=== PATIENT | female | born 1965 | race Caucasian/White ===

== ENCOUNTER → 2022-04-06 12:38 | Outpatient (BNVA) | payer BC, SELFPAY | PROVIDERS: PCP Family Medicine; Visit Provider Student in an Organized Health Care Education/Training Program | DX: Z13.89 Encounter for screening for other disorder (principal) ==

== ENCOUNTER → 2022-08-03 13:45 | Outpatient (BNVA) | payer BC, SELFPAY | PROVIDERS: PCP Family Medicine; Visit Provider Student in an Organized Health Care Education/Training Program ==

== ENCOUNTER 2023-02-22 16:02 | Outpatient (AMB) | payer BC, SELFPAY ==
--- NOTE | 2023-02-22 16:03 | MHC.OFFVIS ---
Intake Vital Signs 02/22/23 16:04 Height 4 ft 10 in Weight 139 lb 15.896 oz BMI 29.3 BP 108/70 Blood Pressure Location Rt brachial Position Sitting Pulse 75 Pulse Source Pulse Oximeter Temp 97.3 F Temp Source Tympanic Pulse Oximetry (%) 98 Oxygen Delivery Method Room Air Intake Visit Reasons: RA Allergies diphenhydramine [From Benadryl] Allergy (Intermediate, Verified 02/22/23 16:05) Swelling adhesive tape Allergy (Mild, Verified 02/22/23 16:05) Rash Medication List - Last Reconciled 02/22/23 by Jose Luis Brown MD 5-hydroxytryptophan (5-HTP) (5-HTP) 100 mg PO DAILY apple cider vinegar mg PO calcium carbonate-vitamin D3 600 mg-10 mcg (400 unit) (Calcium 600 + D(3)) 1 tab PO BID digestive enzymes 1 cap PO DAILY fluticasone propionate 110 mcg/actuation (Flovent HFA) 2 puffs inhalation BID PRN folic acid 3 mg (3 x 1 mg) PO DAILY L.parac,rhamn-B.animalis-vit C 11 billion cell -15 mg (Daily Probiotic (4 Strains)) caps PO magnesium 250 mg PO DAILY methotrexate sodium 7.5 mg (3 x 2.5 mg) PO QWEEK multivitamin 1 tab PO DAILY turmeric root extract 500 mg PO BID HPI HPI Comments History of Present Illness Details 57-year-old female with RA returns for follow-up. Doing well overall with no joint pain or swelling. She has no complaints today. Compliant with methotrexate 3 tabs once weekly and folic acid. Initial history : This is a 56-year-old female with a past medical history of rheumatoid arthritis presents for evaluation of RA. 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 Patient stated she started having bilateral feet swelling about 3 years ago, then it progressed to involve her hands wrists and fingers. She was evaluated by Dr. Yanes and started on methotrexate 7 tabs weekly with significant improvement. After doing well for some time patient took herself off methotrexate however she would have recurrent pain swelling and stiffness so she would take Motrin daily. She was re-evaluated by Dr. Vasquez who advised patient to restart her methotrexate. Patient was found to have some transaminitis and the methotrexate dose was tapered down. Currently patient is taking methotrexate 3 tabs weekly with no recurrence of her inflammatory arthritis. Today patient is doing well overall with no complaints [facility] Medical History Rheumatoid arthritis Intrinsic asthma Allergic rhinitis Mixed hyperlipidemia Uterine leiomyoma Surgical History No history of previous surgery Family History Mother Hypertension Father Medical history unknown Social History Household Members: Spouse Household Members Other:: Mother Alcohol intake: current Alcohol intake frequency: does not drink Patient Tobacco Use Status: Never used Tobacco Current occupational status: employed Current occupation: [employer] [facility] [employer] [place] no additional complaints Physical Exam Vital Signs: Last Vital Signs Temp 97.3 F 02/22/23 16:04 Pulse 75 02/22/23 16:04 BP 108/70 02/22/23 16:04 Pulse Ox 98 02/22/23 16:04 Oxygen Delivery Method Room Air 02/22/23 16:04 BMI result Body Mass Index 29.3 Const General: cooperative, healthy appearing, comfortable and no acute distress Nutritional Appearance: overweight Orientation/consciousness: patient oriented x3 Limitations: no limitations HEENT Head: Yes normocephalic and Yes atraumatic Mouth: moist mucous membranes Resp Effort & Inspection: normal respiratory effort and able to speak in complete sentences Auscultation: clear to auscultation bilaterally Cardio Rate: regular rate Rhythm: regular rhythm Heart sounds: S1 normal heart sound present and S2 normal heart sound present Neuro General: patient oriented x3 Extrem Other: no active synovitis some osteoarthritic changes of both hands Normal nailfold capillaroscopy Assessment & Plan Assessment & Plan (1) Rheumatoid arthritis: Comment: +RF+CCP dx 2016 MTX effective Code(s): M06.9 - Rheumatoid arthritis, unspecified Qualifiers: Rheumatoid arthritis location: multiple sites Rheumatoid factor presence: unspecified presence Qualified Code(s): M06.9 - Rheumatoid arthritis, unspecified Plan: This is a 56-year-old female with rheumatoid arthritis (unclear serology) returns for follow-up. Her RA was diagnosed around 2016 with bilateral foot and hands swelling. Symptoms were controlled with methotrexate. Patient self discontinued methotrexate and took Motrin daily for some time. She was restarted on methotrexate by Dr. Vasquez and MTX dose was lowered as patient had transaminitis without RA exacerbation. Patient is currently on methotrexate 7.5 mg once weekly. No synovitis on exam Continue methotrexate 7.5 mg once weekly & folic acid 3 mg daily Labs before next visit in 6 months (2) Osteopenia: Code(s): M85.80 - Other specified disorders of bone density and structure, unspecified site Qualifiers: Osteopenia location: unspecified Qualified Code(s): M85.80 - Other specified disorders of bone density and structure, unspecified site Plan: DEXA [id number] showed osteopenia with a low FRAX score. Continue calcium and vitamin-D supplementation. Plan I spent 26 minutes reviewing patient's chart, evaluating patient, ordering diagnostic workup, counseling patient and documenting in the chart Orders: Orders Complete Blood Count Auto Diff 6 Months M06.9 - Rheumatoid arthritis, unspecified Comprehensive Met. Panel 6 Months M06.9 - Rheumatoid arthritis, unspecified C Reactive Protein 6 Months M06.9 - Rheumatoid arthritis, unspecified Erythrocyte Sedimentation Rate 6 Months M06.9 - Rheumatoid arthritis, unspecified Coding Level of Care Code Est Pt Level 4 (46351) Diagnoses Rheumatoid arthritis involving multiple sites, unspecified whether rheumatoid factor present M06.9 Rheumatoid arthritis location: multiple sites Rheumatoid factor presence: unspecified presence Osteopenia, unspecified location M85.80 Osteopenia location: unspecified
[2023-02-22 16:04] VITALS: BP 108/70; PULSE 75; TEMP 36.3; O2SAT 98; BMI 29.3
== END 2023-02-22 16:30 | disposition home or self-care (01) ==
PROVIDERS: PCP Family Medicine; Visit Provider Student in an Organized Health Care Education/Training Program
DX: M06.9 Rheumatoid arthritis, unspecified (principal); M85.80 Other specified disorders of bone density and structure, unspecified site
CPT/HCPCS: 99214

== ENCOUNTER → 2023-02-22 16:02 | Outpatient (BNVA) | payer BC, SELFPAY | PROVIDERS: PCP Family Medicine; Visit Provider Student in an Organized Health Care Education/Training Program ==

== ENCOUNTER 2023-08-26 15:36 | Outpatient (AMB) | payer BC, SELFPAY ==
--- NOTE | 2023-08-26 15:38 | A.OFFVIS_ITS ---
Vital Signs 08/26/23 15:39 Height 4 ft 10 in Weight 136 lb 10.986 oz BMI 28.6 BP 114/62 Blood Pressure Location Rt brachial Position Sitting Pulse 66 Pulse Source Pulse Oximeter Pulse Oximetry (%) 96 Oxygen Delivery Method Room Air Intake Visit Reasons: RA/CM Intake Note: Pt seen today for follow up and test results. 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 Filler Shredder Required: No Accompanied by: Self / Same As Patient Allergies diphenhydramine [From Benadryl] Allergy (Intermediate, Verified 08/26/23 15:49) Swelling adhesive tape Allergy (Mild, Verified 08/26/23 15:49) Rash Medication List - Last Reconciled 08/26/23 by Jose Luis Brown MD 5-hydroxytryptophan (5-HTP) (5-HTP) 100 mg PO DAILY apple cider vinegar mg PO calcium carbonate-vitamin D3 600 mg-10 mcg (400 unit) (Calcium 600 + D(3)) 1 tab PO BID digestive enzymes 1 cap PO DAILY fluticasone propionate 110 mcg/actuation (Flovent HFA) 2 puffs inhalation BID PRN folic acid 3 mg (3 x 1 mg) PO DAILY L.parac,rhamn-B.animalis-vit C 11 billion cell -15 mg (Daily Probiotic (4 Strains)) caps PO magnesium 250 mg PO DAILY methotrexate sodium 7.5 mg (3 x 2.5 mg) PO QWEEK multivitamin 1 tab PO DAILY turmeric root extract 500 mg PO BID HPI Comments Details: 58-year-old female with RA returns for follow-up. Doing well overall with no joint pain or swelling. She has no complaints today. Compliant with methotrexate 3 tabs once weekly and folic acid 3 mg daily. Initial history : This is a 56-year-old female with a past medical history of rheumatoid arthritis presents for evaluation of RA. 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 Patient stated she started having bilateral feet swelling about 3 years ago, then it progressed to involve her hands wrists and fingers. She was evaluated by Dr. Yanes and started on methotrexate 7 tabs weekly with significant improvement. After doing well for some time patient took herself off methotrexate however she would have recurrent pain swelling and stiffness so she would take Motrin daily. She was re-evaluated by Dr. Vasquez who advised patient to restart her methotrexate. Patient was found to have some transaminitis and the methotrexate dose was tapered down. Currently patient is taking methotrexate 3 tabs weekly with no recurrence of her inflammatory arthritis. Today patient is doing well overall with no complaints PFSH Medical History Rheumatoid arthritis Intrinsic asthma Allergic rhinitis Mixed hyperlipidemia Uterine leiomyoma Surgical History No history of previous surgery Family History Mother Hypertension Father Medical history unknown Social History Household Members: Spouse Household Members Other:: Mother Alcohol intake: current Alcohol intake frequency: does not drink Patient Tobacco Use Status: Never used Tobacco Current occupational status: employed Current occupation: [employer] Female Reproductive History Menstrual Total pregnancies: 2 Number of Living Children: 1 Ab spontaneous: 1 Review of Systems [employer] Reports no additional complaints, Denies arthralgias and Denies stiffness Physical Exam Vital Signs: Last Vital Signs Pulse 66 08/26/23 15:39 BP 114/62 08/26/23 15:39 Pulse Ox 96 08/26/23 15:39 Oxygen Delivery Method Room Air 08/26/23 15:39 BMI result Body Mass Index 28.6 Const General: cooperative, healthy appearing, comfortable and no acute distress Nutritional Appearance: overweight Orientation/consciousness: patient oriented x3 Limitations: no limitations HEENT Head: Yes normocephalic and Yes atraumatic Mouth: moist mucous membranes Resp Effort & Inspection: normal respiratory effort and able to speak in complete sentences Auscultation: clear to auscultation bilaterally Cardio Rate: regular rate Rhythm: regular rhythm Heart sounds: S1 normal heart sound present and S2 normal heart sound present Neuro General: patient oriented x3 Extrem Other: no active synovitis some osteoarthritic changes of both hands Normal nailfold capillaroscopy Assessment & Plan Assessment & Plan (1) Rheumatoid arthritis: Comment: +RF+CCP dx 2016 MTX effective Code(s): M06.9 - Rheumatoid arthritis, unspecified Category: Medical Qualifiers: Rheumatoid arthritis location: multiple sites Rheumatoid factor presence: unspecified presence Qualified Code(s): M06.9 - Rheumatoid arthritis, unspecified Plan: This is a 56-year-old female with rheumatoid arthritis (unclear serology) returns for follow-up. Her RA was diagnosed around 2016 with bilateral foot and hands swelling. Symptoms were controlled with methotrexate. Patient self discontinued methotrexate and took Motrin daily for some time. She was restarted on methotrexate by Dr. Vasquez and MTX dose was lowered as patient had transaminitis without RA exacerbation. Patient is currently on methotrexate 7.5 mg once weekly. No synovitis on exam Continue methotrexate 7.5 mg once weekly & folic acid 3 mg daily Labs before next visit in 6 months (2) Osteopenia: Code(s): M85.80 - Other specified disorders of bone density and structure, unspecified site Category: Medical Qualifiers: Osteopenia location: unspecified Qualified Code(s): M85.80 - Other specified disorders of bone density and structure, unspecified site Plan: DEXA [id number] showed osteopenia with a low FRAX score. Continue calcium and vitamin-D supplementation. 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 Panel 6 Months M06.9 - Rheumatoid arthritis, unspecified C Reactive Protein 6 Months M06.9 - Rheumatoid arthritis, unspecified Erythrocyte Sedimentation Rate 6 Months M06.9 - Rheumatoid arthritis, unspecified Vitamin D 25-OH (D2 and D3) 6 Months E55.9 - Vitamin D deficiency, unspecified Medications: Refilled calcium carbonate-vitamin D3 600 mg-10 mcg (400 unit) (Calcium 600 + D(3)) 1 tab PO BID 180 tabs 1RF methotrexate sodium 7.5 mg (3 x 2.5 mg) PO QWEEK 36 tabs 0RF M06.9 - Rheumatoid arthritis, unspecified Coding Level of Care Code Est Pt Level 4 (61837) Diagnoses Rheumatoid arthritis involving multiple sites, unspecified whether rheumatoid factor present M06.9 Rheumatoid arthritis location: multiple sites Rheumatoid factor presence: unspecified presence Osteopenia, unspecified location M85.80 Osteopenia location: unspecified [facility] methotrexate user Z79.631
[2023-08-26 15:39] VITALS: BP 114/62; PULSE 66; O2SAT 96; BMI 28.6
== END 2023-08-26 16:09 | disposition home or self-care (01) ==
PROVIDERS: PCP Family Medicine; Visit Provider Student in an Organized Health Care Education/Training Program
DX: M06.9 Rheumatoid arthritis, unspecified (principal); M85.80 Other specified disorders of bone density and structure, unspecified site; Z79.631 Long term (current) use of antimetabolite agent
CPT/HCPCS: 99214

== ENCOUNTER → 2023-08-26 15:36 | Outpatient (BNVA) | payer BC, SELFPAY | PROVIDERS: PCP Family Medicine; Visit Provider Student in an Organized Health Care Education/Training Program ==

== ENCOUNTER 2024-02-24 15:34 | Outpatient (AMB) | payer BC, SELFPAY ==
--- OUTSIDE RECORDS SUMMARY | 2024-02-24 15:37 | XMS_ITS | Continuity of Care Document ---
Author Organization [facility], , [facility], OFFICE Address [address] [facility] [place] [address] Care Team Providers Care Brazing Machine Tender Name Role Phone CRAON LEON Living Advisor LYUDMILA YANES Wood Lathe Operator JOSHUA NARAYAN Associate Product Manager LOUISE TORO Sports Medicine RIA KEITH Primary Care Provider Assessment Encounter Date Assessment Date Assessment LastModified by Organization Details LastModified Time 01/03/2024 01/03/2024 1. Hyperlipidemia. Her cholesterol levels are elevated, with an increasing trend in LDL over the years, currently in the 190 range. HDL levels are satisfactory. She is advised to continue her exercise regimen and monitor her diet, particularly reducing saturated fats. Tests for apoprotein B and homocysteine will be conducted. If these tests are elevated, statin therapy may be considered. If the results are normal, she can maintain her current lifestyle. If the results are mixed, further discussion will be needed to decide on the best course of action. 2. Anemia. Mild anemia is present, likely due to methotrexate use, but it is not a cause for concern. Her blood count tends to be on the lower side, possibly due to a combination of illness and methotrexate use. A repeat blood count will be performed in 2 weeks to ensure it returns to her usual levels. 3. Health Maintenance. Blood cultures were performed due to a previous fever, but no bacterial growth was detected. Her x-ray results are normal. She is scheduled for fasting blood work in 2 weeks. Follow-up Return in 2 weeks for blood work. [place] Not available 01/03/2024 15:47:13 Plan of Treatment Reminders Order Date Submit Date Provider Last Modified By Organization Details Last Modified Time Details Appointments Wellness Visit 30 2024 10:45A M Ria Keith MD Not available Not available Not available Lab CBC [address] [facility], [address] [place] [address], [id number], 01/17/2024 10:38:13 homocyste ine, QN, serum or plasma [address] [facility], [address] [place] [address], [id number], 01/23/2024 14:08:15 CRP, high sensitivi ty, serum or plasma [address] [facility], [address] [place] [address], [id number], 01/23/2024 14:08:16 apolipopr otein B, QN, serum or plasma [address] [facility], [address] [place] [address], [id number], 01/23/2024 14:08:17 Referral None recorded. Procedures None recorded. Surgeries None recorded. Imaging None recorded. Medication Orders None recorded. Patient TargetsNo targets recorded. Patient InstructionsNo instructions recorded. Reason for Referral None Reported. Results Created Date Observation Date Name Description Value Unit Range Abnormal Flag Note LastModifiedBy Organization Detail LastModifiedTime 06/30/19 09 06/26/2008 mammo gram, scree carl No observ ation record ed. [facility] [address] [place], [address], 09/26/2012 03:20:09 10/13/19 10 lobo metry testi ng* No observ ation record ed. [email or web address] Not Available 12/26 15:45:22 10/20/19 10 10/17/2009 routi ne mammo graph y exam, scree carl No observ ation record ed. [address], [address], 09/26/2012 04:17:12 03/28/19 11 03/27/2010 x-ray , chest No observ ation record ed. [facility] (Imaging) [address] [place], [address], 09/26/2012 04:39:31 11/28/19 11 11/24/2010 MAMMO , scree carl, digit al, bilat eral No observ ation record ed. [address], [address], 09/26/2012 05:23:44 12/03/19 12 11/30/2011 MAMMO , scree carl, digit al, bilat eral No observ ation record ed. [address], [address], 09/27/2012 03:37:57 12/31/19 13 12/30/2012 mammo gram, scree carl OBSERV ATION: Bilate ral digita l screen ing mammog carlos: Bilate ral full field digita l screen ing mammog carlos was review ed with CAD and compar ed with prior studie s. Breast tissue patter n is a mixtur e of fatty and fibrog landul ar elemen ts. No domina nt mass lesion or suspic ious microc alcifi cation s are seen in either breast . Impres lindsay: No mammog raphic eviden ce of malign chanelle. Annual screen ing mammog tati is recomm ended. BI-RAD S 1: Negati ve Electr onical ly signed Jesse arauz Physic azra: Ger Sethi MD [address] (Imaging) [address] [place], [address], 12/31/2012 16:31:42 01/01/20 13 12/31/2012 x-ray , knee OBSERV ATION: Left knee: Histor y: Knee pain 3 views. No fractu re or disloc ation is seen. No arthri tis or focal bone pathol ogy. No eviden ce of joint effusi on. Impres lindsay: Normal left knee series . Electr onical ly signed Readin g Physic azra: Ger Sethi MD [facility] (Imaging) [address] [place], [address], 01/01/2013 15:41:38 01/05/20 14 01/01/2014 mammo gram, scree carl OBSERV ATION: Bilate ral digita l screen ing mammog carlos: Bilate ral full field digita l screen ing mammog carlos was review ed with CAD and compar ed with prior studie s. Breast tissue patter n is a mixtur e of fatty and fibrog landul ar elemen ts. No domina nt mass lesion or suspic ious microc alcifi cation s are seen in either breast . Impres lindsay: No mammog raphic eviden ce of malign chanelle. Annual screen ing mammog tati is recomm ended. 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 No signif icant degene rative change s are posttr aumati c abnorm alitie s are presen t. IMPRES LINDSAY: No signif icant radiog raphic abnorm alitie s. CODE: code POS: VMG Electr onical ly signed Readin g Physic azra: Dav Fay [email or web address] [facility] (Imaging) [address] [place], [address], 06/17/2015 18:04:02 05/21/19 16 05/20/2015 x-ray , hand OBSERV ATION: Bilate ral hands 3 views each both wrists are also visual ized HISTOR Y: Newly diagno sed rheuma toid arthri tis COMPAR ARSH: None Findin gs: Minera lizati on, the joint spaces , and alignm ents are normal . No signif icant degene rative change s are posttr aumati c abnorm alitie s are presen t. IMPRES LINDSAY: No signif icant radiog raphic abnorm alitie s. CODE: code POS: VMG Electr onical ly signed Readin g Physic azra: Dav Fay elisabeth [facility] (Imaging) [address] [place], [address], 06/17/2015 18:04:02 06/09/19 16 06/09/2015 x-ray , chest OBSERV ATION: Chest: Histor y: Rheuma toid arthri tis therap y baseli ne Fronta l and latera l views are compar ed with the study of 2010 and reveal ed the lungs to be well expand ed and overal l clear withou t focal infilt rates or pleura l effusi ons presen t. The heart is border line enlarg ed withou t overt vascul ar conges tion or inters titial edema. The visual ized bony thorax is intact . IMPRES LINDSAY: Border line cardio megaly withou t other signif icant interv al change from 2010. CODE: code POS - VMG Electr onical ly signed Readin g Physic azra: Bhavin Allen MD [address] (Imaging) [address] [place], [address], 06/17/2015 18:04:03 07/01/19 16 06/30/2015 x-ray , knee OBSERV ATION: Right knee 3 views weight bearin g HISTOR Y: Pain, rheuma toid arthri tis COMPAR ARSH: None Findin gs: Minera lizati on, the joint spaces , and alignm ents are normal . No signif icant degene rative change s or posttr aumati c abnorm alitie s are presen t. IMPRES LINDSAY: No signif icant radiog raphic abnorm alitie s. CODE: code POS: VMG Electr onical ly signed Readin g Physic azra: [facility] [address] [place], [address], 07/02/2015 11:42:18 03/03/20 16 03/02/2016 MAMMO , scree carl, digit al, bilat eral OBSERV ATION: Screen ing Mammog carlos, Bilate ral with utiliz ation of comput er aided detect ion. Histor y: Routin e Compar arsh: dating back to 2012. Findin gs: No suspic ious masses or suspic ious cluste red microc alcifi cation s are presen t. No dae ectura l distor tion or signif icant asymme try is presen t. IMPRES LINDSAY: Normal negati ve. Annual screen ing is recomm ended. Patien t notifi ed by letter . BI-RAD S CATEGO RY 1 - NEGATI VE Densit y: 1 Fatty replac ed POS: VMG Electr onical ly signed Jesse arauz Physic azra: Dav Fay [facility] (Imaging) [address] [place], [address], 03/03/2016 14:10:02 03/05/19 18 03/05/2017 MAMMO , scree carl, digit al, bilat eral OBSERV ATION: Screen ing Mammog carlos, Bilate ral with utiliz ation of comput er aided detect ion. Histor y: Routin e Compar arsh: dating back to 2013 and the most recent is dated the 2015 Findin gs: No suspic ious masses or suspic ious cluste red microc alcifi cation s are presen t. No dae ectura l distor tion or signif icant asymme try is presen t. IMPRES LINDSAY: Normal negati ve. Annual screen ing is recomm ended. Patien t notifi ed by letter . BI-RAD S CATEGO RY 1 - NEGATI VE Densit y: A Fatty replac ed POS: VMG Electr onical ly signed Jesse arauz Physic azra: Dav Nya [facility] (Imaging) [address] [place], [address], 03/05/2017 13:47:27 10/18/19 18 10/17/2017 XR, knee, weigh tbear ing OBSERV ATION: EXAM: Radiog raphs of left knee, 3 views COMPAR ARSH: Octobe r 2012 Histor y: Left knee rule out osteoa rthrit is FINDIN GS: Includ ed bone struct ures are intact and in anatom ic alignm ent. Joint spaces are preser diamond. [place] ing soft tissue s are unrema rkable . IMPRES LINDSAY: No eviden ce of osteoa rthrit is. Electr onical ly signed Jesse arauz Physic azra: Robert bob [facility] (Imaging) [address] [place], [address], 10/18/2017 07:52:11 03/21/19 19 03/21/2018 MAMMO , scree carl, digit al, bilat eral OBSERV ATION: Bilate ral Digita l Screen ing Mammog carlos. 52-yea r-old female with no curren t breast sympto ms. Compar arsh made to previo us on 2017 as far back as 2006. Interp retati on made in conjun ction with comput er-aid ed detect ion. The breast s are almost entire ly fatty. There are no suspic ious masses , areas of dae ectura l distor tion, or suspic ious cluste rs of microc alcifi cation s. IMPRES LINDSAY: No mammog raphic eviden ce of malign chanelle. Recomm end routin e survei llance . Patien t notifi ed by letter . BI-RAD S CATEGO RY 1 - NEGATI VE Densit y - 1 POS - VMG Electr onical ly signed Jesse arauz Physic azra: Kenny garcia MD [address] (Imaging) [address] [place], [address], 03/21/2018 08:43:56 05/02/19 20 05/02/2019 XR, hand OBSERV ATION: CLINIC AL HISTOR Y: Pain. TECHNI QUE: Three views of the right and left hands obtain ed. FINDIN GS: Right hand There is no acute fractu re, sublux ation, or disloc ation. Bone minera lizati on is within normal limits . The soft tissue s are unrema rkable . Left hand There is no acute fractu re, sublux ation, or disloc ation. Bone minera lizati on is within normal limits . The soft tissue s are unrema rkable . IMPRES LINDSAY: No acute bone abnorm ality. Electr onical ly signed Jesse arauz Physic azra: Emmanuel Fuller ms [facility] (Imaging) [address] [place], [address], 05/04/2019 11:18:52 12/06/1912/03/2019 MAMMO , scree carl, tomos ynthe sis, bilat eral OBSERV ATION: CLINIC AL HISTOR Y: Screen ing. TECHNI QUE: 3D mammog tati (tomos ynthes is) and 2D mammog tati (C-vie w) images are genera rohan. Images review ed with a CAD system . COMPAR ARSH: Prior mammog monisha throug h 2013. FINDIN GS: The breast parenc hyma is almost entire ly fatty. There are no suspic ious masses . There are no suspic ious microc alcifi cation s. The breast dae ecture is normal . There has been no signif icant change compar ed to the prior study. IMPRES LINDSAY: No mammog raphic eviden ce of malign chanelle. Regula r mammog raphic screen ing recomm ended. The patien t was entere d into a remind er system with a target date for their next mammog carlos. Breast densit y: A. The breast s are almost entire ly fatty. BIRADS : 1, NEGATI VE Electr onical ly signed Jesse arauz Physic azra: Emmanuel Fuller [facility] (Imaging) [address] [place], [address], 12/07/2019 10:38:24 01/01/2012/24/2019 bone densi ty OBSERV ATION: Dual-E nergy X-ray Absorp tiomet ry (DXA) scan perfor med on . Impres lindsay: Based on BMD, diagno sis is consis tent with low bone mass. Treatm ent Recomm endati ons: ? Optimi ze vitami n D, calciu m, and weight -beari ng and muscle -stren gtheni ng exerci se. This patien t has low bone mass with fractu re risk below the thresh old for antire sorpti ve treatm ent. Follow -up DXA: Consid er repeat ing this study in two to three years or as clinic ally [place]abo madrigal. Indica tion(s ): postme nopaus al Clinic al Histor y: rheuma toid arthri tis, height loss Techni sean Qualit y: The techni sean qualit y of the study was good and no region s of intere st were remove d. Result s: Lumbar Spine The BMD measur ed in the L1-L4 region is 1.005 g/cm2. T-scor e = -1.5. Femora l Neck The BMD measur ed at the right femora l neck is 0.789 g/cm2. T-scor e = -1.8. Total Hip The BMD measur ed at the total mean proxim al femur is 0.891 g/cm2. T-scor e = -0.9. Interv al Change : No priors availa ble for compar arsh. Fractu re Risk: The estima rohan 10-yea r risk for a major osteop orotic fractu re is 5.0 % and for a hip fractu re 0.6 %.This fractu re risk estima te was calcul ated using FRAX versio n 4.0 and postme nopaus e and rheuma toid arthri tis as additi onal clinic al risk factor s for fractu re. This scan was perfor med using the [employer] 10 densit ometer at [facility] , [place] [address] [place]. Read by: Nae Culp on, MS, CONSTRUCTION TRADES TEACHER-BC , CCD Electr onical ly signed Jesse arauz Physic azra: Ira Mathis [facility] (Imaging) [address], [place], [address], 01/25/2020 09:02:36 06/29/19 21 06/28/2020 XR, kidne y + urete r + bladd er OBSERV ATION: CLINIC AL HISTOR Y: Urinar y retent ion. Left-s ided low back and pelvic pain. TECHNI QUE: Supine view of the abdome n obtain ed. COMPAR ARSH: None. FINDIN GS: The intest inal gas patter n is normal , with no signs of ileus or obstru ction. No calcif icatio ns projec t over the kidney s. There is a 1.8 cm calcif icatio n in the left hemipe lvis, likely a fibroi d. There are additi onal smalle r calcif icatio ns that may repres ent phlebo liths. . The viscer al contou rs are normal ly outlin ed. There is no eviden ce of free air or fluid in the perito clayton cavity or retrop eriton eum. The bony struct ures are intact . There is an unrema rkable amount of stool. IMPRES LINDSAY: No acute abdomi nal pathol ogy. Probab le left pelvic fibroi d. Electr onical ly signed Readsilvano arauz Physic azra: Emmanuel Fuller ms [email or web address] [facility] (Imaging) [address], [place], [place], [address], 06/28/2020 14:40:08 06/29/19 21 06/28/2020 US, kidne y OBSERV ATION: CLINIC AL HISTOR Y: Left leg pain TECHNI QUE: 2D sonogr aphy of the kidney s and bladde r. COMPAR ARSH: None. FINDIN GS: Right kidney 4.5 x 10.1 cm The right kidney is normal in echote xture. There are no solid masses , stones , or hydron ephros is. Left kidney 4.6 x 9.5 cm The left kidney is normal in echote xture. There are no solid masses , stones , or hydron ephros is. The bladde r is normal in appear ance. Ureter al jets are visual ized bilate rally. The prevoi d bladde r volume is 55.6 mL. The post void bladde r volume is 1.6 mL. IMPRES LINDSAY: 1. Unrema rkable examin ation of the kidney s and bladde r. 2. 1.6 mL postvo id residu al. Electr onical ly signed Readsilvano arauz Physic azra: mEmanuel Fuller ms [email or web address] [facility] (Imaging) [address] [place], [address], 06/28/2020 14:43:55 06/01/19 22 05/30/2021 MAMMO , scree carl, tomos ynthe sis, bilat eral CLINIC AL HISTOR Y: Screen ing. TECHNI QUE: 3D mammog tati (tomos ynthes is) and 2D mammog tati (C-vie w) images are genera rohan. Images review ed with a CAD system . COMPAR ARSH: Prior mammog monisha back throug h 2015. FINDIN GS: The breast parenc hyma is almost entire ly fatty. There are no suspic ious masses . There are no suspic ious microc alcifi cation s. The breast dae ecture is normal . There has been no signif icant change compar ed to the prior study. IMPRES LINDSAY: No mammog raphic eviden ce of malign chanelle. Annual mammog raphic screen ing recomm ended. This facili ty uses a remind er system with a target date for the next mammog carlos. Breast densit y: A. The breast s are almost entire ly fatty. BIRADS : 1, NEGATI VE Jesse arauz Physic azra: Emmanuel Fuller ms [address] (Imaging) [address] [place], [address], 05/31/2021 09:22:27 07/22/19 22 07/20/2021 XR, knee CLINIC AL HISTOR Y: Right knee mr teacher ior pain. TECHNI QUE: AP, obliqu e and latera l views of the right knee obtain ed. COMPAR ARSH: 016 FINDIN GS: There is no fractu re, sublux ation or disloc ation. The joint spaces are mainta ined. IMPRES LINDSAY: No acute bone abnorm ality. Jesse arauz Physic azra: Emmanuel Fuller ms [facility] (Imaging) [address] [place], [address], 12/03/2021 20:24:51 10/13/19 23 10/12/2022 MAMMO , scree carl, tomos ynthe sis, bilat eral MAMMO, SCREEN , DAYSI, BILAT: 023. BI-RAD S: 1 CLINIC AL: 57-yea r old Female for Bilate ral Screen ing Mammog carlos. No person al or first- degree family histor y of breast cancer . PRIOR EXAMS: Review ed previo us images from 2021, 2019, 2018 and 2017. MAMMOG TATI TECHNI QUE: 3D mammog tati (tomos ynthes is) and 2D mammog tati (C-vie w) images are genera rohan. Images review ed with a CAD system . DENSIT Y A. Almost entire ly fatty. MAMMOG TATI FINDIN GS Bilate ral: No suspic ious mass, asymme try, microc alcifi cation , or other abnorm ality seen. CONCLU LINDSAY * No eviden ce of malign chanelle. RECOMM ENDATI ONS Bilate ral * Annual screen ing mammog tati. ADMINI STRATI VE: A lay summar y was mailed to your patien t indica angelikag the result s and recomm endati ons for follow -up. OVERAL L ASSESS MENT CATEGO RY BI-RAD S-1: Negati ve. The [employer] recomm ends annual screen ing mammog tati beginn ing at age 40 for women with averag e risk of breast cancer . ELECTR ONICAL LY SIGNED : Emmanuel Fuller ms, M.D. on 2022 at 05:39: 03 PM Jesse arauz Physic azra: Emmanuel Fuller ms [email or web address] [facility] (Imaging) [address], [place], [address], 10/15/2022 08:56:27 12/19/19 24 12/19/2023 XR, chest CLINIC AL HISTOR Y: Cough, fever for 5 weeks. TECHNI QUE: Fronta l view and latera l view of the chest obtain ed. COMPAR ARSH: 06/09/19 16 FINDIN GS: The heart is normal in size and config uratio n.Ther e is no hilar or medias tinal enlarg ement. There is no focal lung consol idatio n or infilt rate. The bony thorax is intact . IMPRES LINDSAY: No acute diseas e. Jesse arauz Physic azra: Emmanuel Fuller ms [email or web address] [facility] (Imaging) [address], [place], [address], 12/20/2023 09:18:35 12/19/19 24 12/19/2023 XR, chest CLINIC AL HISTOR Y: Cough, fever for 5 weeks. TECHNI QUE: Fronta l view and latera l view of the chest obtain ed. COMPAR ARSH: 06/09/19 16 FINDIN GS: The heart is normal in size and config uratio n.Ther e is no hilar or medias tinal enlarg ement. There is no focal lung consol idatio n or infilt rate. The bony thorax is intact . IMPRES LINDSAY: No acute diseas eEthel arauz Physic azra: Emmanuel Fuller ms [email or web address] [facility] (Imaging) [address], [place], [address], 12/20/2023 09:18:35 Result Notes None recorded. Problems Name Problem SNOMED Code Status Onset Date Resolution Date Notes Provider Name and Address Organization Details Recorded Time Mixed hyperlipid emia 123487957 Completed 2008 Leandro Zheng DPM [address] [place], [address] , [facility] 6 15:19:03 Common cold 68907280 Completed 01/21/2013 Not Available [facility] 3 02:00:30 Pneumonia 110226408 Completed 01/21/2013 Not Available [facility] 3 02:02:26 Knee pain Completed 01/21/2013 Not Available [facility] 3 02:00:43 Exercise-i nduced asthma 76649006 Completed Not Available [facility] 3 03:15:46 Paronychia of finger 122337042 Completed 01/21/2013 Not Available [facility] 3 02:04:05 Intrinsic asthma 350346338 Completed Leandro Zheng DPM [address] [place], [address] , [facility] 6 15:19:03 Asthma 451155819 Completed NADYA Frederick [address] [place] [address], , [facility] 4 17:08:16 Allergic asthma without status asthmaticu s 92677497 Completed 2002 Leandro Zheng DPM [address] [place] [address], , [facility] 6 15:19:03 Adult health examinatio n Completed 09/28/2016 Ria Keith MD [address] [place] [address], , [facility] 7 19:52:37 Counseling Completed 09/28/2016 Ria Keith MD [address] [place] [address], , [facility] 7 19:52:43 Knee pain Active LUCERO Be [address] [place] [address], , [facility] 6 18:01:29 Uterine leiomyoma 28738081 Active Leandro Zheng DPM [address] [place] [address], , [facility] 6 15:19:03 Anterior knee pain 941724393 Completed 08/01/2017 Luanne Lozada NP [address] [place] [address], , [facility] 8 05:53:05 Metatarsal mike 68643905 Completed Leandro Zheng DPM [address] [place] [address], , [facility] 6 15:22:15 Pronation of foot 29230728 Completed Leandro Zheng DPM [address] [place] [address], , [facility] 6 15:22:15 Rheumatoid arthritis 48170542 Active Lyudmila Yanes MD [address] [place] [address], , [facility] 6 19:04:13 Rheumatoid arthritis 13231658 Completed Lyudmila Yanes MD [address] [place] [address], , [facility] 6 19:04:13 Knee pain Completed LUCERO Be [address] [place] [address], , [facility] 6 18:01:29 Anterior knee pain 753601357 Completed Lyudmila Yanes MD [address] [place] [address], , [facility] 6 19:04:13 Tenosynovi tis of fingers 456558675 Active Lyudmila Yanes MD [address] [place] [address], , [facility] 6 19:04:13 Tenosynovi tis of fingers 178374722 Completed Lyudmila Yaens MD [address] [place] [address], , [facility] 6 19:04:13 Long-term drug therapy Completed 201508/01/2017 Luanne Lozada NP [address] [place] [address], , [facility] 8 05:53:11 Mixed hyperlipid emia 725407812 Active 2008 Leandro Zheng DPM [address] [place] [address], , [facility] 6 15:19:03 Cough 42875396 Completed 200212/31/2012 Leandro Zheng DPM [address] [place] [address], , [facility] 6 15:19:04 Extrinsic asthma with asthma attack Completed 200012/31/2012 Leandro Zheng DPM [address] [place] [address], , [facility] 6 15:19:03 Shoulder pain 56855733 Completed 200312/31/2012 Leandro Zheng DPM [address] [place], [address] , [facility] 6 15:19:04 Fever 235183656 Completed 200712/31/2012 Leandro Zheng DPM [address] [place], [address] , [facility] 6 15:19:04 Myopia 33378735 Completed 200408/01/2017 Luanne Lozada NP [address] [place], [address] , [facility] 8 05:53:18 Intrinsic asthma 794599455 Active Leandro Zheng DPM [address], [place], , [facility] 6 15:19:03 Skin sensation disturbanc e 70452794 Completed 200112/31/2012 Leandro Zheng DPM [address], [place], , [facility] 6 15:19:04 Joint stiffness 92970863 Completed 200012/31/2012 Leandro Zheng DPM [address], [place], , [facility] 6 15:19:04 Neck pain 23634544 Completed 200012/31/2012 Leandro Zheng DPM [address], [place], , [facility] 6 15:19:04 Allergic asthma without status asthmaticu s 12760686 Completed 200208/01/2017 Luanne Lozada NP [address], [place], , [facility] [facility] 8 05:53:25 Urticaria [id number] Completed 200312/31/2012 Leandro Zheng DPM [address], [place], , [facility] 6 15:19:04 Atopic dermatitis 91169440 Completed 200102/04/2015 Leandro Zheng DPM [address] [place], [address] , [facility] 6 15:19:03 Common cold 26406084 Completed 200012/31/2012 Leandro Zheng DPM [address] [place], [address] , [facility] 6 15:19:03 Knee pain Completed 200301/21/2013 Leandro Zheng DPM [address] [place], [address] , [facility] 6 15:19:04 On examinatio n - a rash Completed 200012/31/2012 Leandro Zheng DPM [address] [place], [address] , [facility] 6 15:19:04 Sprain of shoulder and upper arm Completed 200012/31/2012 Leandro Zheng DPM [address] [place], [address] , [facility] 6 15:19:04 Allergic rhinitis caused by pollen 19322987 Active 2002 Leandro Zheng DPM [address] [place], [address] , [facility] 6 15:19:03 Exercise-i nduced asthma 37815008 Completed 12/31/2012 Leandro Zheng DPM [address] [place], [address] , [facility] 6 15:19:03 White blood cell disorder 71221994 Completed 200302/04/2015 Leandro Zheng DPM [address] [place], [address] , [facility] 6 15:19:03 Anemia 520077606 Completed 200202/04/2015 Leandro Zheng DPM [address] [place], [address] , [facility] 6 15:19:03 Acute conjunctiv itis 03181621 Completed 200212/31/2012 Leandro Zheng DPM [address] [place], [address] , [facility] 6 15:19:03 Abnormal weight gain 462857784 Completed 200812/31/2012 Leandro Zheng DPM [address] [place], [address] , [facility] 6 15:19:04 Acute upper respirator y infection of multiple sites Completed 200712/31/2012 Leandro Zheng DPM [address] [place], [address] , [facility] 6 15:19:03 Acne 74009806 Completed 200102/04/2015 Leandro Zheng DPM [address] [place], [address] , [facility] 6 15:19:03 Acute bronchitis 80623805 Completed 200312/31/2012 Leandro Zheng DPM [address] [place], [address] , [facility] 6 15:19:03 Primary fibromyalg ia syndrome 87504317 Completed 200102/04/2015 Leandro Zheng DPM [address] [place], [address] , [facility] 6 15:19:04 Asthma 888217954 Completed 200012/31/2012 Leandro Zheng DPM [address] [place], [address] , [facility] 6 15:19:03 Neck sprain 261274697 Completed 200012/31/2012 Leandro Zheng DPM [address] [place], [address] , [facility] 6 15:19:04 Malaise and fatigue 226981308 Completed 200212/31/2012 Leandro Zheng DPM [address] [place], [address] , [facility] 6 15:19:04 Problem Notes None recorded. Procedures Surgical History Date Name Laterality Status Provider Name and Address Organization Details Recorded Time 09/20/19 22 73584: Therapeutic Exercise completed Larissa Estrada, PT [address] [place], [address], [facility] 09/19/2021 17:28:32 09/20/19 Treatment and Advice completed Larissa Estrada, PT [address] [place], [address], [facility] 09/19/2021 17:28:32 08/30/19 22 91138: Therapeutic Exercise completed Larissa Estrada, PT [address] [place], [address], [facility] 08/29/2021 17:35:35 08/30/19 Treatment and Advice completed Larissa Estrada, PT [address] [place], [address], [facility] 08/29/2021 18:00:56 08/23/19 37634: Therapeutic Exercise completed Larissa Estrada, PT [address] [place], [address], [facility] 08/22/2021 18:03:21 08/23/19 22 Treatment and Advice completed Larissa Estrada, PT [address] [place], [address], [facility] 08/22/2021 18:05:32 08/16/19 22 02462: Therapeutic Exercise completed Larissa Estrada, PT [address] [place], [address], [facility] 08/15/2021 19:47:05 08/16/19 22 Treatment and Advice completed Larissa Estrada, PT [address] [place], [address], [facility] 08/15/2021 19:46:19 08/11/19 22 Physical Activity Counselling completed Larissa Estrada, PT [address] [place], [address], [facility] 08/10/2021 07:42:47 08/11/19 22 35933: PT Eval Low Complexity completed Larissa Estrada, PT [address] [place], [address], [facility] 08/10/2021 07:42:44 08/11/19 22 Treatment and Advice completed Larissa Estrada, PT [address] [place], [address], [facility] 08/10/2021 08:02:43 06/27/19 22 Asthma Control Test (12 + years old) completed Katelin Chao [facility] 06/26/2021 15:59:49 12/08/19 21 Asthma Control Test (12 + years old) completed Melissa Mona [facility] 12/07/2020 14:38:53 05/03/19 21 prevention-card iovascular risk reduction counseling completed Melissa Dunn [facility] 05/02/2020 15:19:26 05/03/19 21 prevention-lynda al alcohol misuse screening completed Melissa Dunn [facility] 05/02/2020 15:19:26 04/27/19 20 Trigger Finger Injection RB completed Lyudmila Yanes MD [address] [place], [address], [facility] 04/27/2019 15:25:34 09/27/19 19 Generic Procedure Template completed Lyudmila Yanes MD [address] [place], [address], [facility] 09/28/2018 11:36:46 07/11/19 19 Physical Activity Counselling completed Georgina Solares, OT [address] [place], [address], [facility] 07/10/2018 20:39:55 07/11/19 19 56918: OT Eval, Moderate Complexity completed Georgina Solares, OT [address] [place], [address], [facility] 07/10/2018 20:39:59 09/28/19 18 81027: Therapeutic Exercise completed Leandro Pike, PT [address] [place], [address], [facility] 09/27/2017 14:40:27 09/28/19 18 Treatment and Advice completed Leandro Pike, PT [address] [place], [address], [facility] 09/27/2017 14:56:47 08/31/19 18 29287: Therapeutic Exercise completed Leandro Pike, PT [address] [place], [address], [facility] 08/30/2017 10:37:08 08/31/19 18 93578: Ultrasound (1:1) completed Leandro Pike, PT [address] [place], [address], [facility] 08/30/2017 10:37:39 08/31/19 18 Treatment and Advice completed Leandro Pike, PT [address] [place], [address], [facility] 08/30/2017 10:34:51 08/24/19 18 31453: Therapeutic Exercise completed Leandro Pike, PT [address] [place], [address], [facility] 08/23/2017 11:28:22 08/24/19 18 Treatment and Advice completed Leandro Pike, PT [address] [place], [address], [facility] 08/23/2017 11:28:04 08/17/19 18 Physical Activity Counselling completed Leandro Pike, PT [address] [place], [address], [facility] 08/16/2017 16:36:13 08/17/19 18 24473: PT Eval Low Complexity completed Leandro Pike, PT [address] [place], [address], [facility] 08/16/2017 16:36:13 08/14/19 18 Nebulizer Tx completed Eliane Rodgers [facility] 08/13/2017 10:51:42 08/12/19 16 58048: Therapeutic Exercise completed Leandro Pike, PT [address] [place], [address], [facility] 08/12/2015 17:00:08 08/12/19 16 Treatment and Advice completed Leandro Pike, PT [address] [place], [address], [facility] 08/12/2015 17:00:08 07/29/19 16 90379: Therapeutic Exercise completed Leandro Pike, PT [address] [place], [address], [facility] 07/30/2015 07:14:21 07/29/19 16 Treatment and Advice completed Leandro Pike, PT [address] [place], [address], [facility] 07/29/2015 16:58:00 07/26/19 16 Trigger Finger Injection RB completed Lyudmila Yanes MD [address] [place], [address], [facility] 07/26/2015 19:03:32 07/15/19 16 35486: PT Evaluation completed Leandro Pike, PT [address] [place], [address], [facility] 07/15/2015 17:30:08 04/29/19 16 17653: Therapeutic Exercise completed Leandro Pike, PT [address] [place], [address], [facility] 05/01/2015 11:32:49 04/08/19 16 16289: Therapeutic Exercise completed Leandro Pike, PT [address] [place], [address], [facility] 04/08/2015 17:14:33 03/18/19 16 14599: Therapeutic Exercise completed Leandro Pike, PT [address] [place], [address], [facility] 03/18/2015 18:20:59 03/11/19 16 Yelitza - Colonoscopy completed Bhavin Torre MD [address] [place], [address], [facility] 03/11/2015 07:53:39 02/19/20 15 20533: PT Evaluation completed Leandro Pike, PT [address] [place], [address], [facility] 02/18/2015 16:14:24 01/01/20 13 Asthma Control Test (12 + years old) completed Genesis Lyons [facility] 12/31/2012 15:56:03 12/31/19 10 Treatment and Advice completed DamirFrancisco Pike, PT [address] [place], [address], [facility] 12/30/2009 13:38:40 12/24/19 10 Treatment and Advice completed Leandro Singh Shahzad, PT [address] [place], [address], [facility] 12/23/2009 13:36:51 11/29/19 10 Treatment and Advice completed Leandro Singh Shahzad, PT [address] [place], [address], [facility] 11/28/2009 12:30:58 Imaging Results None recorded. Procedure Notes None recorded. Medical Equipment None Reported. Allergies Allergen ID Allergen Name Allergen Category Reaction Reaction Severity Criticality Documentation Date Start Date Code Code System Note Provider Name and Address Organization Details Recorded Time 18790709 diphenhyd ramine medicatio n edema Not available Not available 05/05/2015 3498 RxNorm Zenia RICK Griffith null, [facility] 6 16:42:55 704183 adhesive environme nt,medica tion rash mild low 08/22/20212021 Larissa henao, PT [address] [facility], [place], [address], [facility] 2 17:37:01 6504 Benadryl medicatio n Not available Not available Not available 05/24/200864658 7 RxNorm swell ing & eyes water ing Not Available [facility] 1 06:05:20 Medications Name Sig Start Date Stop Date Status Note LastModified by Organization Details LastModified Time leucovori n calcium 5 mg tabs 06/30 completed Not Available Not Available Not Available amoxicill in 875 mg tabs 06/30 completed Not Available Not Available Not Available methotrex ate 2.5 mg tabs 06/30 completed Not Available Not Available Not Available flovent hfa 110 mcg/act aero 09/26 completed Not Available Not Available Not Available proair hfa 108 (90 base) mcg/act aers 09/26 completed Not Available Not Available Not Available prednison e 10 mg tablet Take 5 tabs PO X2d, then 4tabs PO X2d, then 3 tabs PO x 3d, then 2 tabs PO X2d & then 1 tab PO X2d 06/27 completed not taking 03/18/23 DS Not Available Not Available Not Available ibuprofen 800 mg tablet Take 1 tablet 3 times a day by oral route for 30 days. 02/12 completed Not Available Not Available Not Available benzonata te 200 mg capsule Take 1 capsule 3 times a day by oral route as needed for 14 days. active finsihed 01/03/24 DS Not Available Not Available Not Available Keflex 500 mg capsule Take 1 capsule 3 times a day by oral route for 7 days. 08/22 completed Not Available Not Available Not Available prednison e 20 mg tablet 2 tabs day x 5 01/02 completed Finished 12/03/23 Not Available Not Available Not Available Zithromax Z-Evaristo 250 mg tablet Take 2 tablets (500 mg) by oral route once daily for 1 day then 1 tablet (250 mg) by oral route once daily for 4 days 2010 active Not Available Not Available Not Avai lable Motrin IB 200 mg tablet Not taking 07/21 completed Not Available Not Available Not Available prochlorp erazine maleate 10 mg tablet active Not Available Not Available Not Available Guaiatuss in AC 10 mg-100 mg/5 mL oral liquid Take 10 mL every 4 hours by oral route. active Not Available Not Available No t Available amoxicill in 875 mg tablet Take 1 tablet every 12 hours by oral route for 7 days. 09/20 completed Not Available Not Available Not Available methotrex ate sodium 2.5 mg tablet Take 3 tablets every week by oral route for 60 days. active Not Available Not Available No t Available Lidoderm 5 % topical patch Apply 1 patch every week by transder mal route as needed. 2012 active Not Available Not Available Not Avai lable tamsulosi n 0.4 mg capsule TAKE 1 CAPSULE BY MOUTH EVERY DAY 11/03 completed Not Available Not Available Not Available leucovori n calcium 5 mg tablet 2 po weekly approx 12 hrs after methotre xate dose 06/27 completed Not Available Not Available Not Available folic acid 1 mg tablet TAKE 3 TABLETS BY MOUTH EVERY DAY active Not Available Not Available No t Available ibuprofen 600 mg tablet take 1.5 tabs per day 06/27 completed Not Available Not Available Not Available albuterol sulfate HFA 90 mcg/actua tion aerosol inhaler Inhale 2 puffs every 4 hours by inhalati on route as needed for 30 days. active Not Available Not Available No t Available fluticaso ne propionat e 110 mcg/actua tion HFA aerosol inhaler INHALE 2 PUFFS BY MOUTH TWICE DAILY NEEDED 12/02 completed Not Available Not Available Not Available naproxen 500 mg tablet Take 1 tablet twice a day by oral route. active Not Available Not Available No t Available amoxicill in 875 mg-potass ium clavulana te 125 mg tablet 01/02 completed not using 01/03/24 DS Not Available Not Available Not Available Flovent HFA 220 mcg/actua tion aerosol inhaler INHALE 2 PUFFS BY MOUTH TWICE DAILY active Not Available Not Available No t Available multivita min active take 1 tab daily Not Available Not Available Not Available sodium fluoride 1.1 % dental paste 12/02 completed PRN Not Available Not Available Not Available calcium 600 mg (as carbonate )-vitamin D3 10 mcg (400 unit) tablet Take 1 tablet twice a day by oral route for 60 days. 2021 active Not Available Not Available Not Avai lable diclofena c 1 % topical gel APPLY 2 GRAMS TO THE AFFECTED AREA(S) BY TOPICAL ROUTE 4 TIMES PER DAY NEEDED 02/07 completed Not Available Not Available Not Available Sharron krishnan 11/27 completed Not Available Not Available Not Available Arnuity Ellipta 200 mcg/actua tion powder for inhalatio n active Not Available Not Available Not Available Arnuity Ellipta 100 mcg/actua tion powder for inhalatio n Inhale 2 puffs every day by inhalati on route for 30 days. active Not Available Not Available No t Available Vitals Date Recorded Body height Oxygen saturation Oxygen saturation in Arterial blood by Pulse oximetry Heart rate Body mass index (BMI) Body weight Systolic blood pressure Diastolic blood pressure Provider Name and Address Organization Details Last Updated DateTime 4 149.23 cm 97 % 97 % 69 /min 27.3 kg/m2 03707.0 8 g 112 mm[Hg] 64 mm[Hg] Gisela Adams MA [facility] 11:06:29 Social History Question Answer Notes LastModified by Organizat ion Details LastModified Time Tobacco Smoking Status Never Smoker Not Available [employer] 01/18/2011 04:53:49 Do You Have An Advance Directive? Yes [email or web address] Information not available 02/07/2022 What Is Your Level Of Alcohol Consumption? None Information not available 09/20/2017 Do You Wear A Helmet When Biking? Yes [email or web address] Information not available 02/07/2022 What Is Your Level Of Caffeine Consumption? Occasional 1 Iced Mocha A Week [email or web address] Information not available 06/28/2023 How Much Tobacco Do You Chew? None Information not available 12/31/2012 Are You Currently Employed? Yes [email or web address] Information not available 02/07/2022 What Type Of Diet Are You Following? VEGETARIAN [employer] [email or web address] Information not available 02/07/2022 Which Illicit Or Recreational Drugs Have You Used? None Information not available 05/02/2020 Do You Or Have You Ever Used E-cigarettes Or Vape? Never Used Electronic Cigarettes [email or web address] Information not available 02/07/2022 Education 4 Year College [email or web address] Information not available 02/07/2022 What Is The Highest Grade Or Level Of School You Have Completed Or The Highest Degree You Have Received? 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 7 [email or web address] Information not available 02/07/2022 Have There Been Any Changes To Your Family Or Social Situation? No [email or web address] Information not available 02/07/2022 How Many Days In The Past Year Have You Had A Heavy Drinking Consumption (4+ Female, 5+ Male)? 0 Information not available 05/02/2020 Are There Any Guns Present In Your Home? No Information not available 12/31/2012 Do You Use Insect Repellent Routinely? Yes [email or web address] Information not available 02/07/2022 Live Alone Or With Others? With Others [email or web address] Information not available 02/07/2022 Does The Patient Have Difficulty Speaking North Korean? No Information not available 12/31/2012 Does The Patient Have Difficulty Reading North Korean? No Information not available 12/31/2012 Patient Has Health Care Proxy Signed And In Chart No Hattie Rosenbaum () [email or web address] Information not available 02/21/2018 Marital Status [email or web address] Informatio n not available 02/07/2022 Mosquito Repellent Used Routinely Yes [email or web address] Information not available 02/07/2022 What Was The Date Of Your Most Recent Tobacco Screening? 01/03/2024 [email or web address] Information not available 01/03/2024 How Many Children Do You Have? 1 [email or web address] Information not available 01/18/2011 What Is Your Relationship Status? Information not available 12/07/2020 Do You Use Your Seat Belt Or Car Seat Routinely? Yes Information not available 12/07/2020 Seat Belts Used Routinely Yes [email or web address] Information not available 02/07/2022 Are You Sexually Active? Yes Information not available 12/31/2012 Smoke Alarm In Home Yes [email or web address] Information not available 02/07/2022 Do You Have Smoke And Carbon Monoxide Detectors In Your Home? Yes [email or web address] Information not available 02/07/2022 Are You Passively Exposed To Smoke? No [email or web address] Information not available 02/07/2022 Do You Or Have You Ever Used Smokeless Tobacco? Never Used Smokeless Tobacco [email or web address] Information not available 02/07/2022 How Much Tobacco Do You Smoke? No [email or web address] Information not available 02/07/2022 General Stress Level Low [email or web address] Information not available 02/07/2022 Do You Use Any Illicit Or Recreational Drugs? No [email or web address] Information not available 02/07/2022 Do You Use Sunscreen Routinely? Yes [email or web address] Information not available 02/07/2022 How Many Years Have You Smoked Tobacco? 0 Information not available 05/02/2020 Do You Or Have You Ever Used Any Other Forms Of Tobacco Or Nicotine? No [email or web address] Information not available 06/28/2023 Sex: Female Functional Status Question Answer Note LastModified by Organization D etails LastModified Time What is your exercise level? Heavy Information not available 12/07/2020 Mental Status None recorded. Family History Relationship Description Onset Age of this Age Resolved Age Notes LastModified by Organization Details LastModified Time Mother Benign hypertension [email or web address] Not available 09/2021 15:35:26 Father Hyperlipidem ia [email or web address] Not available 2015 09:35:23 Notes:no FH breast, colon or ovarian CA; no early CAD or SCD No depression or alcoholism No known FHx of inflammatory arthritis Medical History Condition Response Rheumatoid Arthritis Y Asthma Y Gynecological History Statement/Question Response Menses Monthly Y History of Abnormal Pap N Obstetrics History GPAL:G 0 P 0 0 0 0 Immunizations Vaccine Type Date Status Note Provider Nam e and Address Organization Details Recorded Time influenza, unspecified formulation 3 completed Not Available [facility] 01/17/2011 05:21:07 Influenza, split virus, trivalent, preservative 1 completed Not Available [facility] 03/21/2019 02:31:48 pneumococcal polysaccharide PPV23 1 completed Not Available [facility] 03/21/2019 02:14:31 influenza, unspecified formulation 4 completed Not Available [facility] 01/17/2011 05:21:07 Td(adult) unspecified formulation 3 completed Not Available [facility] 01/17/2011 05:21:07 influenza, unspecified formulation 5 completed Not Available [facility] 01/17/2011 05:21:29 influenza, unspecified formulation 7 completed Not Available [facility] 01/17/2011 05:21:55 influenza, unspecified formulation 8 completed Not Available [facility] 01/17/2011 05:21:55 Influenza, split virus, trivalent, PF 3 completed Not Available [facility] 03/21/2019 02:18:59 Tdap 3 completed Not Available [facility] 03/21/2019 02:34:58 Influenza, split virus, trivalent, preservative 2 completed Not Available [email or web address] 02/07/2022 15:35:28 Influenza, split virus, quadrivalent, PF 8 completed Not Available [facility] 03/21/2019 02:34:54 Influenza, split virus, trivalent, preservative 0 completed Not Available [facility] 03/21/2019 02:37:14 Pneumococcal conjugate PCV 13 0 completed Suad Pineda RN [facility] 11/06/2019 11:27:05 Influenza, split virus, quadrivalent, preservative 0 completed Not Available [email or web address] 02/07/2022 15:35:28 Influenza, split virus, quadrivalent, PF 2 completed Ria Keith MD [address] [place] [address], [phone], [facility] 12/03/2021 20:19:22 Td (adult), 2 Lf tetanus toxoid, preservative free, adsorbed 3 completed Ria Keith MD [address] [place] [address], [address], [facility] 06/24/2022 19:16:30 Influenza, split virus, quadrivalent, PF 3 completed Alanna Brice LPN [facility] 12/16/2022 10:18:58 COVID-19, mRNA, LNP-S, PF, 30 mcg/0.3 mL dose 1 [facility] 12:18:23 COVID-19, mRNA, LNP-S, PF, 30 mcg/0.3 mL dose 1 completed Melissa Dunn MA [facility] 12/07/2020 14:33:59 Influenza, split virus, quadrivalent, preservative 1 [facility] 11/22/2023 12:18:23 COVID-19, mRNA, LNP-S, bivalent, PF, 30 mcg/0.3 mL dose 2 [facility] 11/22/2023 12:18:23 zoster recombinant 2 [facility] 11/22/2023 12:18:23 zoster recombinant 2 completed [facility] 12:18:23 COVID-19, mRNA, LNP-S, PF, 30 mcg/0.3 mL dose 1 completed [facility] 11/22/[facility]23 12:18:23 COVID-19, mRNA, LNP-S, PF, 30 mcg/0.3 mL dose 1 [facility] 11/22/[facility]23 12:18:23 COVID-19, mRNA, LNP-S, PF, 30 mcg/0.3 mL dose 1 [facility] 11/22/[facility]23 12:18:23 COVID-19, mRNA, LNP-S, PF, 30 mcg/0.3 mL dose, lara-sucrose 2 completed [facility] 11/22/2023 12:18:23 COVID-19, mRNA, LNP-S, PF, lara-sucrose, 30 mcg/0.3 mL 3 [facility] 11/22/2023 12:18:23 COVID-19, mRNA, LNP-S, PF, 50 mcg/0.5 mL 4 [facility] 11/22/2023 12:18:23 Influenza, split virus, trivalent, preservative 9 completed [facility] 11/22/2023 12:18:23 Influenza, split virus, quadrivalent, PF 1 [facility] 11/22/2023 12:18:23 Influenza, MDCK, trivalent, PF 4 [facility] 11/22/2023 12:18:23 Past Encounters Encounter ID Performer Location Encounter Start Date Encounter Closed Date Diagnosis/Indication Diagnosis SNOMED-CT Code Diagnosis ICD10 Code [id number] VALENTINO HASSAN DO [facility], [address] [place] [address] 12/03/2023 13:29:05 12/05/2023 12:28:39 Upper respiratory infection 42895963 J06.9 Intrinsic asthma 3442251 08 J45.909 [id number] VALENTINO HASSAN DO [facility], [address] [place] [address] 12/19/2023 15:31:15 12/20/2023 12:05:02 Cough 08516767 R05.9 Rheumatoid arthritis 698 54620 M06.9 [id number] Ria Keith MD , [facility], [address] [place], [place] [id number] 01/03/2024 10:45:25 01/07/2024 14:00:26 Hyperlipidemia 54876389 E78.5 Anemia [id number] D64.9 Rheumatoid arthritis 698 51943 M06.9 Health Concerns Section Related Observation LastModified by Organization Detai ls LastModified Time None Recorded Concern Status LastModified by Organization Details LastModified Time None Recorded Payers Encounter Date Sequence Insurance Name Policy Number Policy Manzanares Covered Member ID Manzanares Member ID Guarantor Name 01/03/2024 1 [facility]: [facility] ([facility] [place] [id number] [facility] [id number] [facility] Robi Notes Date Note Type Note Provider Name and Address Organization Details Recorded Time 01/03/2024 text/html The patient is a 58-year-old female who presents for a routine follow-up.She consulted Dr. Hilton a few weeks ago due to a fever and cough, which have since improved. She completed a course of Augmentin and is currently using Arnuity Ellipta for her lungs. She has not yet used albuterol.She is also taking methotrexate, prescribed by her welt rougher, which is effectively managing her arthritis. She has been advised to follow up with her doctor after three blood tests.She has a history of high LDL cholesterol and is making efforts to maintain a healthy diet and exercise regularly. She does not consume butter and takes fish oil supplements.She reports feeling better than she did last week, following a prolonged cold. She has not returned to the gym since her illness but continues to exercise at home. Ria Keith MD [address] [place] [address], [phone], [facility] 01/03/2024 15:48:22 OBGyn Episode Ob Episode Information Episode Created Date Number of Fetuses Patient Bloodtype Patient rh Status Prepregnancy Weight lbs Domestic Partner Domestic Partner Phone Father Name Autographer Status 02/24/20 00 CLOSED Fetus Data First Name Last Name Admitted to NICU Weight (g) Sex Living Outcome Pediatric Complications Fetus ID Race Codes Race Delivery Type 7 Problems Problem Notes Problem Name Start Date End Date Resolution Snomed Code Not e Tenosynovitis of fingers [id number] Knee pain [id number] Anterior knee pain [id number] Metatarsalgia 43635400 Pronation of foot 40789177 Rheumatoid arthritis 90441997 Mixed hyperlipidemia 12/23/2008 [id number] 3 Exercise-induced asthma 370899 02 Intrinsic asthma [id number] Asthma 157179293 Allergic asthma without stat us asthmaticus 01/21/2003 [id number] Osiel Calculation OSIEL Calculation Method Initial Osiel Date Initial Exam Date Initial Exam Provider Initial Ultrasound Date Last Menstrual Period Date Ultra Sound Weeks Gestation Conception by IVF Embryo Age at Transfer Date of Transfer 02/24/20 00 0 Eighteen To Twenty Week Osiel Update Ultra Sound Date Fundal Height At Umbil Quickening Date Ultra Sound Latest Weeks Gestation Final Osiel Confirmed By Final Osiel Confirmed Date Final Osiel Date Ultra Sound Latest Days Gestation 0 0 Pre-luisa Flowsheet Flowsheet Date 05/24/2008 Brizuela Score Blood Edema Fundus Height Fundus Units Glucose Ketones Leukocytes Nitrite Labor Signs Protein Cervic Dilation Cervic Effacement Cervic Station Type Weight in lbs Pre/Post Dialysis Refused 132.830542645973 BP Diastolic BP Location Tested BP Systolic BP Type 54 R arm 116 sitting Fetus Heart Rate Present Fetus Movement Comments Flowsheet Date 06/02/2008 Brizuela Score Blood Edema Fundus Height Fundus Units Glucose Ketones Leukocytes Nitrite Labor Signs Protein Cervic Dilation Cervic Effacement Cervic Station Type Weight in lbs Pre/Post Dialysis Refused 126.13762359917 BP Diastolic BP Location Tested BP Systolic BP Type 82 L arm 96 sitting Fetus Heart Rate Present Fetus Movement Comments Flowsheet Date 06/26/2008 Brziuela Score Blood Edema Fundus Height Fundus Units Glucose Ketones Leukocytes Nitrite Labor Signs Protein Cervic Dilation Cervic Effacement Cervic Station Type Weight in lbs Pre/Post Dialysis Refused BP Diastolic BP Location Tested BP Systolic BP Type Fetus Heart Rate Present Fetus Movement Comments Flowsheet Date 12/23/2008 Brizuela Score Blood Edema Fundus Height Fundus Units Glucose Ketones Leukocytes Nitrite Labor Signs Protein Cervic Dilation Cervic Effacement Cervic Station Type Weight in lbs Pre/Post Dialysis Refused 134.530926254213 BP Diastolic BP Location Tested BP Systolic BP Type 68 R arm 98 sitting Fetus Heart Rate Present Fetus Movement Comments Flowsheet Date 02/06/2009 Brizuela Score Blood Edema Fundus Height Fundus Units Glucose Ketones Leukocytes Nitrite Labor Signs Protein Cervic Dilation Cervic Effacement Cervic Station Type Weight in lbs Pre/Post Dialysis Refused BP Diastolic BP Location Tested BP Systolic BP Type Fetus Heart Rate Present Fetus Movement Comments Flowsheet Date 09/06/2009 Brizuela Score Blood Edema Fundus Height Fundus Units Glucose Ketones Leukocytes Nitrite Labor Signs Protein Cervic Dilation Cervic Effacement Cervic Station Type Weight in lbs Pre/Post Dialysis Refused 136.986813925165 BP Diastolic BP Location Tested BP Systolic BP Type 74 L arm 118 sitting Fetus Heart Rate Present Fetus Movement Comments Flowsheet Date 10/12/2009 Brizuela Score Blood Edema Fundus Height Fundus Units Glucose Ketones Leukocytes Nitrite Labor Signs Protein Cervic Dilation Cervic Effacement Cervic Station Type Weight in lbs Pre/Post Dialysis Refused 135.048029420583 BP Diastolic BP Location Tested BP Systolic BP Type 78 L arm 100 sitting Fetus Heart Rate Present Fetus Movement Comments Flowsheet Date 10/17/2009 Brizuela Score Blood Edema Fundus Height Fundus Units Glucose Ketones Leukocytes Nitrite Labor Signs Protein Cervic Dilation Cervic Effacement Cervic Station Type Weight in lbs Pre/Post Dialysis Refused BP Diastolic BP Location Tested BP Systolic BP Type Fetus Heart Rate Present Fetus Movement Comments Flowsheet Date 11/14/2009 Brizuela Score Blood Edema Fundus Height Fundus Units Glucose Ketones Leukocytes Nitrite Labor Signs Protein Cervic Dilation Cervic Effacement Cervic Station Type Weight in lbs Pre/Post Dialysis Refused 139.383465579040 BP Diastolic BP Location Tested BP Systolic BP Type 72 L arm 98 sitting Fetus Heart Rate Present Fetus Movement Comments Flowsheet Date 11/25/2009 Brizuela Score Blood Edema Fundus Height Fundus Units Glucose Ketones Leukocytes Nitrite Labor Signs Protein Cervic Dilation Cervic Effacement Cervic Station Type Weight in lbs Pre/Post Dialysis Refused 140.956970146227 BP Diastolic BP Location Tested BP Systolic BP Type 68 L arm 104 sitting Fetus Heart Rate Present Fetus Movement Comments Flowsheet Date 11/28/2009 Brizuela Score Blood Edema Fundus Height Fundus Units Glucose Ketones Leukocytes Nitrite Labor Signs Protein Cervic Dilation Cervic Effacement Cervic Station Type Weight in lbs Pre/Post Dialysis Refused BP Diastolic BP Location Tested BP Systolic BP Type Fetus Heart Rate Present Fetus Movement Comments Flowsheet Date 12/16/2009 Brizuela Score Blood Edema Fundus Height Fundus Units Glucose Ketones Leukocytes Nitrite Labor Signs Protein Cervic Dilation Cervic Effacement Cervic Station Type Weight in lbs Pre/Post Dialysis Refused BP Diastolic BP Location Tested BP Systolic BP Type Fetus Heart Rate Present Fetus Movement Comments Flowsheet Date 12/23/2009 Brizuela Score Blood Edema Fundus Height Fundus Units Glucose Ketones Leukocytes Nitrite Labor Signs Protein Cervic Dilation Cervic Effacement Cervic Station Type Weight in lbs Pre/Post Dialysis Refused BP Diastolic BP Location Tested BP Systolic BP Type Fetus Heart Rate Present Fetus Movement Comments Flowsheet Date 12/30/2009 Brizuela Score Blood Edema Fundus Height Fundus Units Glucose Ketones Leukocytes Nitrite Labor Signs Protein Cervic Dilation Cervic Effacement Cervic Station Type Weight in lbs Pre/Post Dialysis Refused BP Diastolic BP Location Tested BP Systolic BP Type Fetus Heart Rate Present Fetus Movement Comments Flowsheet Date 01/13/2010 Brizuela Score Blood Edema Fundus Height Fundus Units Glucose Ketones Leukocytes Nitrite Labor Signs Protein Cervic Dilation Cervic Effacement Cervic Station Type Weight in lbs Pre/Post Dialysis Refused BP Diastolic BP Location Tested BP Systolic BP Type Fetus Heart Rate Present Fetus Movement Comments Flowsheet Date 03/23/2010 Brizuela Score Blood Edema Fundus Height Fundus Units Glucose Ketones Leukocytes Nitrite Labor Signs Protein Cervic Dilation Cervic Effacement Cervic Station Type Weight in lbs Pre/Post Dialysis Refused 138.072382146568 BP Diastolic BP Location Tested BP Systolic BP Type 78 R arm 104 sitting Fetus Heart Rate Present Fetus Movement Comments Flowsheet Date 03/27/2010 Brizuela Score Blood Edema Fundus Height Fundus Units Glucose Ketones Leukocytes Nitrite Labor Signs Protein Cervic Dilation Cervic Effacement Cervic Station Type Weight in lbs Pre/Post Dialysis Refused 142.906039059458 BP Diastolic BP Location Tested BP Systolic BP Type 58 94 Fetus Heart Rate Present Fetus Movement Comments Flowsheet Date 03/27/2010 Brizuela Score Blood Edema Fundus Height Fundus Units Glucose Ketones Leukocytes Nitrite Labor Signs Protein Cervic Dilation Cervic Effacement Cervic Station Type Weight in lbs Pre/Post Dialysis Refused BP Diastolic BP Location Tested BP Systolic BP Type Fetus Heart Rate Present Fetus Movement Comments Flowsheet Date 04/26/2010 Brizuela Score Blood Edema Fundus Height Fundus Units Glucose Ketones Leukocytes Nitrite Labor Signs Protein Cervic Dilation Cervic Effacement Cervic Station Type Weight in lbs Pre/Post Dialysis Refused 139.808490711312 BP Diastolic BP Location Tested BP Systolic BP Type 68 L arm 112 sitting Fetus Heart Rate Present Fetus Movement Comments Flowsheet Date 08/15/2010 Brizuela Score Blood Edema Fundus Height Fundus Units Glucose Ketones Leukocytes Nitrite Labor Signs Protein Cervic Dilation Cervic Effacement Cervic Station Type Weight in lbs Pre/Post Dialysis Refused 137.865459933822 BP Diastolic BP Location Tested BP Systolic BP Type 68 R arm 108 sitting Fetus Heart Rate Present Fetus Movement Comments Flowsheet Date 08/28/2010 Brizuela Score Blood Edema Fundus Height Fundus Units Glucose Ketones Leukocytes Nitrite Labor Signs Protein Cervic Dilation Cervic Effacement Cervic Station Type Weight in lbs Pre/Post Dialysis Refused 133.039812464951 BP Diastolic BP Location Tested BP Systolic BP Type 60 L arm 92 sitting Fetus Heart Rate Present Fetus Movement Comments Flowsheet Date 11/10/2010 Brizuela Score Blood Edema Fundus Height Fundus Units Glucose Ketones Leukocytes Nitrite Labor Signs Protein Cervic Dilation Cervic Effacement Cervic Station Type Weight in lbs Pre/Post Dialysis Refused BP Diastolic BP Location Tested BP Systolic BP Type Fetus Heart Rate Present Fetus Movement Comments Flowsheet Date 11/24/2010 Brizuela Score Blood Edema Fundus Height Fundus Units Glucose Ketones Leukocytes Nitrite Labor Signs Protein Cervic Dilation Cervic Effacement Cervic Station Type Weight in lbs Pre/Post Dialysis Refused BP Diastolic BP Location Tested BP Systolic BP Type Fetus Heart Rate Present Fetus Movement Comments Flowsheet Date 08/16/2011 Brizuela Score Blood Edema Fundus Height Fundus Units Glucose Ketones Leukocytes Nitrite Labor Signs Protein Cervic Dilation Cervic Effacement Cervic Station Type Weight in lbs Pre/Post Dialysis Refused 133.563776828910 BP Diastolic BP Location Tested BP Systolic BP Type 68 L arm 114 sitting Fetus Heart Rate Present Fetus Movement Comments Flowsheet Date 10/22/2011 Brizuela Score Blood Edema Fundus Height Fundus Units Glucose Ketones Leukocytes Nitrite Labor Signs Protein Cervic Dilation Cervic Effacement Cervic Station Type Weight in lbs Pre/Post Dialysis Refused 134.965737426586 BP Diastolic BP Location Tested BP Systolic BP Type 60 L arm 98 sitting Fetus Heart Rate Present Fetus Movement Comments Flowsheet Date 11/30/2011 Brizuela Score Blood Edema Fundus Height Fundus Units Glucose Ketones Leukocytes Nitrite Labor Signs Protein Cervic Dilation Cervic Effacement Cervic Station Type Weight in lbs Pre/Post Dialysis Refused BP Diastolic BP Location Tested BP Systolic BP Type Fetus Heart Rate Present Fetus Movement Comments Flowsheet Date 03/14/2012 Brizuela Score Blood Edema Fundus Height Fundus Units Glucose Ketones Leukocytes Nitrite Labor Signs Protein Cervic Dilation Cervic Effacement Cervic Station Type Weight in lbs Pre/Post Dialysis Refused 131.117962510972 BP Diastolic BP Location Tested BP Systolic BP Type 74 L arm 100 sitting Fetus Heart Rate Present Fetus Movement Comments Flowsheet Date 03/19/2012 Brizuela Score Blood Edema Fundus Height Fundus Units Glucose Ketones Leukocytes Nitrite Labor Signs Protein Cervic Dilation Cervic Effacement Cervic Station Type Weight in lbs Pre/Post Dialysis Refused BP Diastolic BP Location Tested BP Systolic BP Type 70 L arm 110 sitting Fetus Heart Rate Present Fetus Movement Comments Flowsheet Date 12/16/2012 Brizuela Score Blood Edema Fundus Height Fundus Units Glucose Ketones Leukocytes Nitrite Labor Signs Protein Cervic Dilation Cervic Effacement Cervic Station Type Weight in lbs Pre/Post Dialysis Refused BP Diastolic BP Location Tested BP Systolic BP Type Fetus Heart Rate Present Fetus Movement Comments Flowsheet Date 12/31/2012 Brizuela Score Blood Edema Fundus Height Fundus Units Glucose Ketones Leukocytes Nitrite Labor Signs Protein Cervic Dilation Cervic Effacement Cervic Station Type Weight in lbs Pre/Post Dialysis Refused 128.622082194232 BP Diastolic BP Location Tested BP Systolic BP Type 76 L arm 102 sitting Fetus Heart Rate Present Fetus Movement Comments Flowsheet Date 05/26/2013 Brizuela Score Blood Edema Fundus Height Fundus Units Glucose Ketones Leukocytes Nitrite Labor Signs Protein Cervic Dilation Cervic Effacement Cervic Station Type Weight in lbs Pre/Post Dialysis Refused 129.676923244307 BP Diastolic BP Location Tested BP Systolic BP Type 72 L arm 110 sitting Fetus Heart Rate Present Fetus Movement Comments Flowsheet Date 02/04/2015 Brizuela Score Blood Edema Fundus Height Fundus Units Glucose Ketones Leukocytes Nitrite Labor Signs Protein Cervic Dilation Cervic Effacement Cervic Station Type Weight in lbs Pre/Post Dialysis Refused 140.4438691216 BP Diastolic BP Location Tested BP Systolic BP Type 58 L arm 102 sitting Fetus Heart Rate Present Fetus Movement Comments Flowsheet Date 02/18/2015 Brizuela Score Blood Edema Fundus Height Fundus Units Glucose Ketones Leukocytes Nitrite Labor Signs Protein Cervic Dilation Cervic Effacement Cervic Station Type Weight in lbs Pre/Post Dialysis Refused BP Diastolic BP Location Tested BP Systolic BP Type Fetus Heart Rate Present Fetus Movement Comments Flowsheet Date 03/11/2015 Brizuela Score Blood Edema Fundus Height Fundus Units Glucose Ketones Leukocytes Nitrite Labor Signs Protein Cervic Dilation Cervic Effacement Cervic Station Type Weight in lbs Pre/Post Dialysis Refused BP Diastolic BP Location Tested BP Systolic BP Type Fetus Heart Rate Present Fetus Movement Comments Flowsheet Date 03/18/2015 Brizuela Score Blood Edema Fundus Height Fundus Units Glucose Ketones Leukocytes Nitrite Labor Signs Protein Cervic Dilation Cervic Effacement Cervic Station Type Weight in lbs Pre/Post Dialysis Refused BP Diastolic BP Location Tested BP Systolic BP Type Fetus Heart Rate Present Fetus Movement Comments Flowsheet Date 04/01/2015 Brizuela Score Blood Edema Fundus Height Fundus Units Glucose Ketones Leukocytes Nitrite Labor Signs Protein Cervic Dilation Cervic Effacement Cervic Station Type Weight in lbs Pre/Post Dialysis Refused 140.4883015445 BP Diastolic BP Location Tested BP Systolic BP Type 68 R arm 100 sitting Fetus Heart Rate Present Fetus Movement Comments Flowsheet Date 04/08/2015 Brizuela Score Blood Edema Fundus Height Fundus Units Glucose Ketones Leukocytes Nitrite Labor Signs Protein Cervic Dilation Cervic Effacement Cervic Station Type Weight in lbs Pre/Post Dialysis Refused BP Diastolic BP Location Tested BP Systolic BP Type Fetus Heart Rate Present Fetus Movement Comments Flowsheet Date 04/08/2015 Brizuela Score Blood Edema Fundus Height Fundus Units Glucose Ketones Leukocytes Nitrite Labor Signs Protein Cervic Dilation Cervic Effacement Cervic Station Type Weight in lbs Pre/Post Dialysis Refused BP Diastolic BP Location Tested BP Systolic BP Type Fetus Heart Rate Present Fetus Movement Comments Flowsheet Date 04/25/2015 Brizuela Score Blood Edema Fundus Height Fundus Units Glucose Ketones Leukocytes Nitrite Labor Signs Protein Cervic Dilation Cervic Effacement Cervic Station Type Weight in lbs Pre/Post Dialysis Refused 139.315528240645 BP Diastolic BP Location Tested BP Systolic BP Type 62 R arm 108 sitting Fetus Heart Rate Present Fetus Movement Comments Flowsheet Date 04/29/2015 Brizuela Score Blood Edema Fundus Height Fundus Units Glucose Ketones Leukocytes Nitrite Labor Signs Protein Cervic Dilation Cervic Effacement Cervic Station Type Weight in lbs Pre/Post Dialysis Refused BP Diastolic BP Location Tested BP Systolic BP Type Fetus Heart Rate Present Fetus Movement Comments Flowsheet Date 05/05/2015 Brizuela Score Blood Edema Fundus Height Fundus Units Glucose Ketones Leukocytes Nitrite Labor Signs Protein Cervic Dilation Cervic Effacement Cervic Station Type Weight in lbs Pre/Post Dialysis Refused 140.216879658687 BP Diastolic BP Location Tested BP Systolic BP Type 66 R arm 112 sitting Fetus Heart Rate Present Fetus Movement Comments Flowsheet Date 05/12/2015 Brizuela Score Blood Edema Fundus Height Fundus Units Glucose Ketones Leukocytes Nitrite Labor Signs Protein Cervic Dilation Cervic Effacement Cervic Station Type Weight in lbs Pre/Post Dialysis Refused 140.323506901261 BP Diastolic BP Location Tested BP Systolic BP Type 64 R arm 112 sitting Fetus Heart Rate Present Fetus Movement Comments Flowsheet Date 05/17/2015 Brizuela Score Blood Edema Fundus Height Fundus Units Glucose Ketones Leukocytes Nitrite Labor Signs Protein Cervic Dilation Cervic Effacement Cervic Station Type Weight in lbs Pre/Post Dialysis Refused BP Diastolic BP Location Tested BP Systolic BP Type 64 R arm 114 sitting Fetus Heart Rate Present Fetus Movement Comments Flowsheet Date 05/20/2015 Brizuela Score Blood Edema Fundus Height Fundus Units Glucose Ketones Leukocytes Nitrite Labor Signs Protein Cervic Dilation Cervic Effacement Cervic Station Type Weight in lbs Pre/Post Dialysis Refused 140.955267877452 BP Diastolic BP Location Tested BP Systolic BP Type 62 L arm 102 sitting Fetus Heart Rate Present Fetus Movement Comments Flowsheet Date 06/17/2015 Brizuela Score Blood Edema Fundus Height Fundus Units Glucose Ketones Leukocytes Nitrite Labor Signs Protein Cervic Dilation Cervic Effacement Cervic Station Type Weight in lbs Pre/Post Dialysis Refused 139.132830373468 BP Diastolic BP Location Tested BP Systolic BP Type 70 L arm 116 sitting Fetus Heart Rate Present Fetus Movement Comments Flowsheet Date 06/30/2015 Brizuela Score Blood Edema Fundus Height Fundus Units Glucose Ketones Leukocytes Nitrite Labor Signs Protein Cervic Dilation Cervic Effacement Cervic Station Type Weight in lbs Pre/Post Dialysis Refused 141.713046922110 BP Diastolic BP Location Tested BP Systolic BP Type 54 R arm 98 sitting Fetus Heart Rate Present Fetus Movement Comments Flowsheet Date 07/15/2015 Brizuela Score Blood Edema Fundus Height Fundus Units Glucose Ketones Leukocytes Nitrite Labor Signs Protein Cervic Dilation Cervic Effacement Cervic Station Type Weight in lbs Pre/Post Dialysis Refused BP Diastolic BP Location Tested BP Systolic BP Type Fetus Heart Rate Present Fetus Movement Comments Flowsheet Date 07/26/2015 Brizuela Score Blood Edema Fundus Height Fundus Units Glucose Ketones Leukocytes Nitrite Labor Signs Protein Cervic Dilation Cervic Effacement Cervic Station Type Weight in lbs Pre/Post Dialysis Refused 141.109609879886 BP Diastolic BP Location Tested BP Systolic BP Type 70 L arm 110 sitting Fetus Heart Rate Present Fetus Movement Comments Flowsheet Date 07/29/2015 Brizuela Score Blood Edema Fundus Height Fundus Units Glucose Ketones Leukocytes Nitrite Labor Signs Protein Cervic Dilation Cervic Effacement Cervic Station Type Weight in lbs Pre/Post Dialysis Refused BP Diastolic BP Location Tested BP Systolic BP Type Fetus Heart Rate Present Fetus Movement Comments Flowsheet Date 08/10/2015 Brizuela Score Blood Edema Fundus Height Fundus Units Glucose Ketones Leukocytes Nitrite Labor Signs Protein Cervic Dilation Cervic Effacement Cervic Station Type Weight in lbs Pre/Post Dialysis Refused 140.09381116514 BP Diastolic BP Location Tested BP Systolic BP Type 80 L arm 110 sitting Fetus Heart Rate Present Fetus Movement Comments Flowsheet Date 08/12/2015 Brizuela Score Blood Edema Fundus Height Fundus Units Glucose Ketones Leukocytes Nitrite Labor Signs Protein Cervic Dilation Cervic Effacement Cervic Station Type Weight in lbs Pre/Post Dialysis Refused BP Diastolic BP Location Tested BP Systolic BP Type Fetus Heart Rate Present Fetus Movement Comments Flowsheet Date 09/26/2015 Brizuela Score Blood Edema Fundus Height Fundus Units Glucose Ketones Leukocytes Nitrite Labor Signs Protein Cervic Dilation Cervic Effacement Cervic Station Type Weight in lbs Pre/Post Dialysis Refused 141.312033394582 BP Diastolic BP Location Tested BP Systolic BP Type 66 L arm 116 sitting Fetus Heart Rate Present Fetus Movement Comments Flowsheet Date 11/28/2015 Brizuela Score Blood Edema Fundus Height Fundus Units Glucose Ketones Leukocytes Nitrite Labor Signs Protein Cervic Dilation Cervic Effacement Cervic Station Type Weight in lbs Pre/Post Dialysis Refused 141.313199715551 BP Diastolic BP Location Tested BP Systolic BP Type 64 L arm 118 sitting Fetus Heart Rate Present Fetus Movement Comments Flowsheet Date 02/13/2016 Brizuela Score Blood Edema Fundus Height Fundus Units Glucose Ketones Leukocytes Nitrite Labor Signs Protein Cervic Dilation Cervic Effacement Cervic Station Type Weight in lbs Pre/Post Dialysis Refused 141.249163664904 BP Diastolic BP Location Tested BP Systolic BP Type 68 L arm 104 sitting Fetus Heart Rate Present Fetus Movement Comments Flowsheet Date 02/28/2016 Brizuela Score Blood Edema Fundus Height Fundus Units Glucose Ketones Leukocytes Nitrite Labor Signs Protein Cervic Dilation Cervic Effacement Cervic Station Type Weight in lbs Pre/Post Dialysis Refused 137.468802655515 BP Diastolic BP Location Tested BP Systolic BP Type 70 L arm 124 sitting Fetus Heart Rate Present Fetus Movement Comments Flowsheet Date 05/25/2016 Brizuela Score Blood Edema Fundus Height Fundus Units Glucose Ketones Leukocytes Nitrite Labor Signs Protein Cervic Dilation Cervic Effacement Cervic Station Type Weight in lbs Pre/Post Dialysis Refused 139.976547113920 BP Diastolic BP Location Tested BP Systolic BP Type 64 R arm 116 sitting Fetus Heart Rate Present Fetus Movement Comments Flowsheet Date 08/24/2016 Brizuela Score Blood Edema Fundus Height Fundus Units Glucose Ketones Leukocytes Nitrite Labor Signs Protein Cervic Dilation Cervic Effacement Cervic Station Type Weight in lbs Pre/Post Dialysis Refused 135.020323584065 BP Diastolic BP Location Tested BP Systolic BP Type 66 R arm 122 sitting Fetus Heart Rate Present Fetus Movement Comments Flowsheet Date 09/20/2016 Brizuela Score Blood Edema Fundus Height Fundus Units Glucose Ketones Leukocytes Nitrite Labor Signs Protein Cervic Dilation Cervic Effacement Cervic Station Type Weight in lbs Pre/Post Dialysis Refused 134.46180075041 BP Diastolic BP Location Tested BP Systolic BP Type 60 L arm 112 sitting Fetus Heart Rate Present Fetus Movement Comments Flowsheet Date 11/16/2016 Brizuela Score Blood Edema Fundus Height Fundus Units Glucose Ketones Leukocytes Nitrite Labor Signs Protein Cervic Dilation Cervic Effacement Cervic Station Type Weight in lbs Pre/Post Dialysis Refused 140.258207308550 BP Diastolic BP Location Tested BP Systolic BP Type 68 L arm 114 sitting Fetus Heart Rate Present Fetus Movement Comments Flowsheet Date 03/15/2017 Brizuela Score Blood Edema Fundus Height Fundus Units Glucose Ketones Leukocytes Nitrite Labor Signs Protein Cervic Dilation Cervic Effacement [facility] Type Weight in lbs Pre/Post Dialysis Refused [id number] BP Diastolic BP Location Tested BP Systolic BP Type 68 104 Fetus Heart Rate Present Fetus Movement Comments Flowsheet Date 06/27/2017 [place] Score Blood Edema Fundus Height Fundus Units Glucose Ketones Leukocytes Nitrite Labor Signs Protein Cervic Dilation Cervic Effacement [facility] Station Type Weight in lbs Pre/Post Dialysis Refused [id number] BP Diastolic BP Location Tested BP Systolic BP Type 80 L arm 120 sitting Fetus Heart Rate Present Fetus Movement Comments Flowsheet Date 07/31/2017 [place] Score Blood Edema Fundus Height Fundus Units Glucose Ketones Leukocytes Nitrite Labor Signs Protein Cervic Dilation Cervic Effacement [facility] Station Type Weight in lbs Pre/Post Dialysis Refused 138.371707390981 BP Diastolic BP Location Tested BP Systolic BP Type 62 R arm 104 sitting Fetus Heart Rate Present Fetus Movement Comments Flowsheet Date 08/13/2017 [place] Score Blood Edema Fundus Height Fundus Units Glucose Ketones Leukocytes Nitrite Labor Signs Protein Cervic Dilation Cervic Effacement [facility] Station Type Weight in lbs Pre/Post Dialysis Refused 136.666144957996 BP Diastolic BP Location Tested BP Systolic BP Type 68 L arm 104 sitting Fetus Heart Rate Present Fetus Movement Comments Flowsheet Date 08/16/2017 [place] Score Blood Edema Fundus Height Fundus Units Glucose Ketones Leukocytes Nitrite Labor Signs Protein Cervic Dilation Cervic Effacement [facility] Type Weight in lbs Pre/Post Dialysis Refused BP Diastolic BP Location Tested BP Systolic BP Type Fetus Heart Rate Present Fetus Movement Comments Flowsheet Date 08/23/2017 [place] Score Blood Edema Fundus Height Fundus Units Glucose Ketones Leukocytes Nitrite Labor Signs Protein Cervic Dilation Cervic Effacement [facility] Station Type Weight in lbs Pre/Post Dialysis Refused BP Diastolic BP Location Tested BP Systolic BP Type Fetus Heart Rate Present Fetus Movement Comments Flowsheet Date 08/30/2017 [place] Score Blood Edema Fundus Height Fundus Units Glucose Ketones Leukocytes Nitrite Labor Signs Protein Cervic Dilation Cervic Effacement [facility] Type Weight in lbs Pre/Post Dialysis Refused BP Diastolic BP Location Tested BP Systolic BP Type Fetus Heart Rate Present Fetus Movement Comments Flowsheet Date 09/20/2017 [place] Score Blood Edema Fundus Height Fundus Units Glucose Ketones Leukocytes Nitrite Labor Signs Protein Cervic Dilation Cervic Effacement [facility] Station Type Weight in lbs Pre/Post Dialysis Refused [id number] BP Diastolic BP Location Tested BP Systolic BP Type 66 R arm 120 sitting Fetus Heart Rate Present Fetus Movement Comments Flowsheet Date 09/27/2017 [place] Score Blood Edema Fundus Height Fundus Units Glucose Ketones Leukocytes Nitrite Labor Signs Protein Cervic Dilation Cervic Effacement [facility] Type Weight in lbs Pre/Post Dialysis Refused BP Diastolic BP Location Tested BP Systolic BP Type Fetus Heart Rate Present Fetus Movement Comments Flowsheet Date 10/17/2017 [place] Score Blood Edema Fundus Height Fundus Units Glucose Ketones Leukocytes Nitrite Labor Signs Protein Cervic Dilation Cervic Effacement [facility] Type Weight in lbs Pre/Post Dialysis Refused BP Diastolic BP Location Tested BP Systolic BP Type 60 L arm 104 sitting Fetus Heart Rate Present Fetus Movement Comments Flowsheet Date 12/02/2017 [place] Score Blood Edema Fundus Height Fundus Units Glucose Ketones Leukocytes Nitrite Labor Signs Protein Cervic Dilation Cervic Effacement [facility] Type Weight in lbs Pre/Post Dialysis Refused BP Diastolic BP Location Tested BP Systolic BP Type Fetus Heart Rate Present Fetus Movement Comments Flowsheet Date 12/26/2017 [place] Score Blood Edema Fundus Height Fundus Units Glucose Ketones Leukocytes Nitrite Labor Signs Protein Cervic Dilation Cervic Effacement [facility] Type Weight in lbs Pre/Post Dialysis Refused [id number] BP Diastolic BP Location Tested BP Systolic BP Type 71 R arm 112 sitting Fetus Heart Rate Present Fetus Movement Comments Flowsheet Date 03/14/2018 [place] Score Blood Edema Fundus Height Fundus Units Glucose Ketones Leukocytes Nitrite Labor Signs Protein Cervic Dilation Cervic Effacement [facility] Type Weight in lbs Pre/Post Dialysis Refused Weight 142.408967303957 BP Diastolic BP Location Tested BP Systolic BP Type 68 L arm 100 sitting Fetus Heart Rate Present Fetus Movement Comments Flowsheet Date 06/30/2018 [place] Score Blood Edema Fundus Height Fundus Units Glucose Ketones Leukocytes Nitrite Labor Signs Protein Cervic Dilation Cervic Effacement [facility] Type Weight in lbs Pre/Post Dialysis Refused Weight 139.660538946339 BP Diastolic BP Location Tested BP Systolic BP Type 70 R arm 104 sitting Fetus Heart Rate Present Fetus Movement Comments Flowsheet Date 07/10/2018 [place] Score Blood Edema Fundus Height Fundus Units Glucose Ketones Leukocytes Nitrite Labor Signs Protein Cervic Dilation Cervic Effacement [facility] Type Weight in lbs Pre/Post Dialysis Refused BP Diastolic BP Location Tested BP Systolic BP Type Fetus Heart Rate Present Fetus Movement Comments Flowsheet Date 07/31/2018 [place] Score Blood Edema Fundus Height Fundus Units Glucose Ketones Leukocytes Nitrite Labor Signs Protein Cervic Dilation Cervic Effacement [facility] Type Weight in lbs Pre/Post Dialysis Refused BP Diastolic BP Location Tested BP Systolic BP Type Fetus Heart Rate Present Fetus Movement Comments Flowsheet Date 08/28/2018 [place] Score Blood Edema Fundus Height Fundus Units Glucose Ketones Leukocytes Nitrite Labor Signs Protein Cervic Dilation Cervic Effacement [facility] Type Weight in lbs Pre/Post Dialysis Refused BP Diastolic BP Location Tested BP Systolic BP Type Fetus Heart Rate Present Fetus Movement Comments Flowsheet Date 09/11/2018 [place] Score Blood Edema Fundus Height Fundus Units Glucose Ketones Leukocytes Nitrite Labor Signs Protein Cervic Dilation Cervic Effacement [facility] Type Weight in lbs Pre/Post Dialysis Refused BP Diastolic BP Location Tested BP Systolic BP Type Fetus Heart Rate Present Fetus Movement Comments Flowsheet Date 09/18/2018 [place] Score Blood Edema Fundus Height Fundus Units Glucose Ketones Leukocytes Nitrite Labor Signs Protein Cervic Dilation Cervic Effacement [facility] Type Weight in lbs Pre/Post Dialysis Refused BP Diastolic BP Location Tested BP Systolic BP Type Fetus Heart Rate Present Fetus Movement Comments Flowsheet Date 09/26/2018 [place] Score Blood Edema Fundus Height Fundus Units Glucose Ketones Leukocytes Nitrite Labor Signs Protein Cervic Dilation Cervic Effacement [facility] Type Weight in lbs Pre/Post Dialysis Refused Weight 140.737466709982 BP Diastolic BP Location Tested BP Systolic BP Type 68 R arm 106 sitting Fetus Heart Rate Present Fetus Movement Comments Flowsheet Date 10/09/2018 [place] Score Blood Edema Fundus Height Fundus Units Glucose Ketones Leukocytes Nitrite Labor Signs Protein Cervic Dilation Cervic Effacement [facility] Type Weight in lbs Pre/Post Dialysis Refused BP Diastolic BP Location Tested BP Systolic BP Type Fetus Heart Rate Present Fetus Movement Comments Flowsheet Date 04/27/2019 [place] Score Blood Edema Fundus Height Fundus Units Glucose Ketones Leukocytes Nitrite Labor Signs Protein Cervic Dilation Cervic Effacement [facility] Type Weight in lbs Pre/Post Dialysis Refused Weight 137.743838814785 BP Diastolic BP Location Tested BP Systolic BP Type 74 R arm 106 sitting Fetus Heart Rate Present Fetus Movement Comments Flowsheet Date 10/26/2019 [place] Score Blood Edema Fundus Height Fundus Units Glucose Ketones Leukocytes Nitrite Labor Signs Protein Cervic Dilation Cervic Effacement [facility] Type Weight in lbs Pre/Post Dialysis Refused BP Diastolic BP Location Tested BP Systolic BP Type Fetus Heart Rate Present Fetus Movement Comments Flowsheet Date 11/06/2019 [place] Score Blood Edema Fundus Height Fundus Units Glucose Ketones Leukocytes Nitrite Labor Signs Protein Cervic Dilation Cervic Effacement [facility] Type Weight in lbs Pre/Post Dialysis Refused BP Diastolic BP Location Tested BP Systolic BP Type Fetus Heart Rate Present Fetus Movement Comments Flowsheet Date 01/25/2020 [place] Score Blood Edema Fundus Height Fundus Units Glucose Ketones Leukocytes Nitrite Labor Signs Protein Cervic Dilation Cervic Effacement [facility] Type Weight in lbs Pre/Post Dialysis Refused BP Diastolic BP Location Tested BP Systolic BP Type Fetus Heart Rate Present Fetus Movement Comments Flowsheet Date 04/25/2020 [place] Score Blood Edema Fundus Height Fundus Units Glucose Ketones Leukocytes Nitrite Labor Signs Protein Cervic Dilation Cervic Effacement [facility] Type Weight in lbs Pre/Post Dialysis Refused BP Diastolic BP Location Tested BP Systolic BP Type 78 R arm 135 Fetus Heart Rate Present Fetus Movement Comments Flowsheet Date 05/02/2020 [place] Score Blood Edema Fundus Height Fundus Units Glucose Ketones Leukocytes Nitrite Labor Signs Protein Cervic Dilation Cervic Effacement [facility] Type Weight in lbs Pre/Post Dialysis Refused Stated 140.858826644877 BP Diastolic BP Location Tested BP Systolic BP Type 84 R arm 125 Fetus Heart Rate Present Fetus Movement Comments Flowsheet Date 06/27/2020 [place] Score Blood Edema Fundus Height Fundus Units Glucose Ketones Leukocytes Nitrite Labor Signs Protein Cervic Dilation Cervic Effacement [facility] Type Weight in lbs Pre/Post Dialysis Refused BP Diastolic BP Location Tested BP Systolic BP Type 70 R arm 104 sitting Fetus Heart Rate Present Fetus Movement Comments Flowsheet Date 06/30/2020 [place] Score Blood Edema Fundus Height Fundus Units Glucose Ketones Leukocytes Nitrite Labor Signs Protein Cervic Dilation Cervic Effacement [facility] Type Weight in lbs Pre/Post Dialysis Refused With clothes 140.182432249932 BP Diastolic BP Location Tested BP Systolic BP Type 76 R arm 108 sitting Fetus Heart Rate Present Fetus Movement Comments Flowsheet Date 07/21/2020 [place] Score Blood Edema Fundus Height Fundus Units Glucose Ketones Leukocytes Nitrite Labor Signs Protein Cervic Dilation Cervic Effacement [facility] Type Weight in lbs Pre/Post Dialysis Refused BP Diastolic BP Location Tested BP Systolic BP Type 86 132 Fetus Heart Rate Present Fetus Movement Comments Flowsheet Date 11/03/2020 [place] Score Blood Edema Fundus Height Fundus Units Glucose Ketones Leukocytes Nitrite Labor Signs Protein Cervic Dilation Cervic Effacement [facility] Type Weight in lbs Pre/Post Dialysis Refused Weight 139.453937258449 BP Diastolic BP Location Tested BP Systolic BP Type 72 L arm 110 sitting Fetus Heart Rate Present Fetus Movement Comments Flowsheet Date 12/07/2020 [place] Score Blood Edema Fundus Height Fundus Units Glucose Ketones Leukocytes Nitrite Labor Signs Protein Cervic Dilation Cervic Effacement [facility] Type Weight in lbs Pre/Post Dialysis Refused With clothes 139.323865143387 BP Diastolic BP Location Tested BP Systolic BP Type 60 L arm 94 sitting Fetus Heart Rate Present Fetus Movement Comments Flowsheet Date 03/09/2021 [place] Score Blood Edema Fundus Height Fundus Units Glucose Ketones Leukocytes Nitrite Labor Signs Protein Cervic Dilation Cervic Effacement [facility] Type Weight in lbs Pre/Post Dialysis Refused BP Diastolic BP Location Tested BP Systolic BP Type Fetus Heart Rate Present Fetus Movement Comments Flowsheet Date 06/26/2021 [place] Score Blood Edema Fundus Height Fundus Units Glucose Ketones Leukocytes Nitrite Labor Signs Protein Cervic Dilation Cervic Effacement [facility] Type Weight in lbs Pre/Post Dialysis Refused Weight 140.251022660881 BP Diastolic BP Location Tested BP Systolic BP Type 58 102 Fetus Heart Rate Present Fetus Movement Comments Flowsheet Date 07/20/2021 [place] Score Blood Edema Fundus Height Fundus Units Glucose Ketones Leukocytes Nitrite Labor Signs Protein Cervic Dilation Cervic Effacement [facility] Type Weight in lbs Pre/Post Dialysis Refused With clothes 141.014607706450 BP Diastolic BP Location Tested BP Systolic BP Type 64 R arm 98 sitting Fetus Heart Rate Present Fetus Movement Comments Flowsheet Date 08/10/2021 [place] Score Blood Edema Fundus Height Fundus Units Glucose Ketones Leukocytes Nitrite Labor Signs Protein Cervic Dilation Cervic Effacement [facility] Station Type Weight in lbs Pre/Post Dialysis Refused BP Diastolic BP Location Tested BP Systolic BP Type Fetus Heart Rate Present Fetus Movement Comments Flowsheet Date 08/15/2021 [place] Score Blood Edema Fundus Height Fundus Units Glucose Ketones Leukocytes Nitrite Labor Signs Protein Cervic Dilation Cervic Effacement [facility] Station Type Weight in lbs Pre/Post Dialysis Refused BP Diastolic BP Location Tested BP Systolic BP Type Fetus Heart Rate Present Fetus Movement Comments Flowsheet Date 08/22/2021 [place] Score Blood Edema Fundus Height Fundus Units Glucose Ketones Leukocytes Nitrite Labor Signs Protein Cervic Dilation Cervic Effacement [facility] Station Type Weight in lbs Pre/Post Dialysis Refused BP Diastolic BP Location Tested BP Systolic BP Type Fetus Heart Rate Present Fetus Movement Comments Flowsheet Date 08/29/2021 [place] Score Blood Edema Fundus Height Fundus Units Glucose Ketones Leukocytes Nitrite Labor Signs Protein Cervic Dilation Cervic Effacement [facility] Station Type Weight in lbs Pre/Post Dialysis Refused BP Diastolic BP Location Tested BP Systolic BP Type Fetus Heart Rate Present Fetus Movement Comments Flowsheet Date 08/30/2021 [place] Score Blood Edema Fundus Height Fundus Units Glucose Ketones Leukocytes Nitrite Labor Signs Protein Cervic Dilation Cervic Effacement [facility] Station Type Weight in lbs Pre/Post Dialysis Refused BP Diastolic BP Location Tested BP Systolic BP Type 70 L arm 104 sitting Fetus Heart Rate Present Fetus Movement Comments Flowsheet Date 09/19/2021 [place] Score Blood Edema Fundus Height Fundus Units Glucose Ketones Leukocytes Nitrite Labor Signs Protein Cervic Dilation Cervic Effacement [facility] Type Weight in lbs Pre/Post Dialysis Refused BP Diastolic BP Location Tested BP Systolic BP Type Fetus Heart Rate Present Fetus Movement Comments Flowsheet Date 10/18/2021 [place] Score Blood Edema Fundus Height Fundus Units Glucose Ketones Leukocytes Nitrite Labor Signs Protein Cervic Dilation Cervic Effacement [facility] Type Weight in lbs Pre/Post Dialysis Refused BP Diastolic BP Location Tested BP Systolic BP Type Fetus Heart Rate Present Fetus Movement Comments Flowsheet Date 10/25/2021 [place] Score Blood Edema Fundus Height Fundus Units Glucose Ketones Leukocytes Nitrite Labor Signs Protein Cervic Dilation Cervic Effacement [facility] Type Weight in lbs Pre/Post Dialysis Refused BP Diastolic BP Location Tested BP Systolic BP Type 70 112 Fetus Heart Rate Present Fetus Movement Comments Flowsheet Date 11/27/2021 [place] Score Blood Edema Fundus Height Fundus Units Glucose Ketones Leukocytes Nitrite Labor Signs Protein Cervic Dilation Cervic Effacement [facility] Station Type Weight in lbs Pre/Post Dialysis Refused Weight 137.169133420957 BP Diastolic BP Location Tested BP Systolic BP Type 60 R arm 102 sitting Fetus Heart Rate Present Fetus Movement Comments Flowsheet Date 02/07/2022 [place] Score Blood Edema Fundus Height Fundus Units Glucose Ketones Leukocytes Nitrite Labor Signs Protein Cervic Dilation Cervic Effacement [facility] Station Type Weight in lbs Pre/Post Dialysis Refused Weight 140.449513841347 BP Diastolic BP Location Tested BP Systolic BP Type 62 L arm 100 sitting Fetus Heart Rate Present Fetus Movement Comments Flowsheet Date 06/22/2022 [place] Score Blood Edema Fundus Height Fundus Units Glucose Ketones Leukocytes Nitrite Labor Signs Protein Cervic Dilation Cervic Effacement [facility] Station Type Weight in lbs Pre/Post Dialysis Refused With clothes 136.511355344177 BP Diastolic BP Location Tested BP Systolic BP Type 56 L arm 86 sitting Fetus Heart Rate Present Fetus Movement Comments Flowsheet Date 12/16/2022 [place] Score Blood Edema Fundus Height Fundus Units Glucose Ketones Leukocytes Nitrite Labor Signs Protein Cervic Dilation Cervic Effacement [facility] Station Type Weight in lbs Pre/Post Dialysis Refused BP Diastolic BP Location Tested BP Systolic BP Type Fetus Heart Rate Present Fetus Movement Comments Flowsheet Date 12/28/2022 [place] Score Blood Edema Fundus Height Fundus Units Glucose Ketones Leukocytes Nitrite Labor Signs Protein Cervic Dilation Cervic Effacement [facility] Station Type Weight in lbs Pre/Post Dialysis Refused With clothes 139.278050574068 BP Diastolic BP Location Tested BP Systolic BP Type 60 R arm 90 sitting Fetus Heart Rate Present Fetus Movement Comments Flowsheet Date 03/18/2023 [place] Score Blood Edema Fundus Height Fundus Units Glucose Ketones Leukocytes Nitrite Labor Signs Protein Cervic Dilation Cervic Effacement [facility] Station Type Weight in lbs Pre/Post Dialysis Refused With clothes 139.046200259260 BP Diastolic BP Location Tested BP Systolic BP Type 62 R arm 92 sitting Fetus Heart Rate Present Fetus Movement Comments Flowsheet Date 03/29/2023 [place] Score Blood Edema Fundus Height Fundus Units Glucose Ketones Leukocytes Nitrite Labor Signs Protein Cervic Dilation Cervic Effacement [facility] Station Type Weight in lbs Pre/Post Dialysis Refused With clothes 139.915334582341 BP Diastolic BP Location Tested BP Systolic BP Type 58 L arm 96 sitting Fetus Heart Rate Present Fetus Movement Comments Flowsheet Date 05/10/2023 [place] Score Blood Edema Fundus Height Fundus Units Glucose Ketones Leukocytes Nitrite Labor Signs Protein Cervic Dilation Cervic Effacement Cerv[facility] Station Type Weight in lbs Pre/Post Dialysis Refused BP Diastolic BP Location Tested BP Systolic BP Type Fetus Heart Rate Present Fetus Movement Comments Flowsheet Date 05/17/2023 [place] Score Blood Edema Fundus Height Fundus Units Glucose Ketones Leukocytes Nitrite Labor Signs Protein Cervic Dilation Cervic Effacement Cerv[facility] Station Type Weight in lbs Pre/Post Dialysis Refused BP Diastolic BP Location Tested BP Systolic BP Type Fetus Heart Rate Present Fetus Movement Comments Flowsheet Date 05/24/2023 [place] Score Blood Edema Fundus Height Fundus Units Glucose Ketones Leukocytes Nitrite Labor Signs Protein Cervic Dilation Cervic Effacement Cervic Station Type Weight in lbs Pre/Post Dialysis Refused BP Diastolic BP Location Tested BP Systolic BP Type Fetus Heart Rate Present Fetus Movement Comments Flowsheet Date 05/31/2023 [place] Score Blood Edema Fundus Height Fundus Units Glucose Ketones Leukocytes Nitrite Labor Signs Protein Cervic Dilation Cervic Effacement Cervic Station Type Weight in lbs Pre/Post Dialysis Refused BP Diastolic BP Location Tested BP Systolic BP Type Fetus Heart Rate Present Fetus Movement Comments Flowsheet Date 06/28/2023 [place] Score Blood Edema Fundus Height Fundus Units Glucose Ketones Leukocytes Nitrite Labor Signs Protein Cervic Dilation Cervic Effacement Cervic Station Type Weight in lbs Pre/Post Dialysis Refused With clothes 138.380658173469 BP Diastolic BP Location Tested BP Systolic BP Type 60 R arm 90 sitting Fetus Heart Rate Present Fetus Movement Comments Flowsheet Date 07/15/2023 [place] Score Blood Edema Fundus Height Fundus Units Glucose Ketones Leukocytes Nitrite Labor Signs Protein Cervic Dilation Cervic Effacement Cervic Station Type Weight in lbs Pre/Post Dialysis Refused BP Diastolic BP Location Tested BP Systolic BP Type Fetus Heart Rate Present Fetus Movement Comments Flowsheet Date 07/22/2023 [place] Score Blood Edema Fundus Height Fundus Units Glucose Ketones Leukocytes Nitrite Labor Signs Protein Cervic Dilation Cervic Effacement Cervic Station Type Weight in lbs Pre/Post Dialysis Refused BP Diastolic BP Location Tested BP Systolic BP Type Fetus Heart Rate Present Fetus Movement Comments Flowsheet Date 08/12/2023 [place] Score Blood Edema Fundus Height Fundus Units Glucose Ketones Leukocytes Nitrite Labor Signs Protein Cervic Dilation Cervic Effacement Cerv[facility] Station Type Weight in lbs Pre/Post Dialysis Refused BP Diastolic BP Location Tested BP Systolic BP Type Fetus Heart Rate Present Fetus Movement Comments Flowsheet Date 08/23/2023 [place] Score Blood Edema Fundus Height Fundus Units Glucose Ketones Leukocytes Nitrite Labor Signs Protein Cervic Dilation Cervic Effacement Cerv[facility] Station Type Weight in lbs Pre/Post Dialysis Refused BP Diastolic BP Location Tested BP Systolic BP Type Fetus Heart Rate Present Fetus Movement Comments Flowsheet Date 11/22/2023 [place] Score Blood Edema Fundus Height Fundus Units Glucose Ketones Leukocytes Nitrite Labor Signs Protein Cervic Dilation Cervic Effacement Cervic Station Type Weight in lbs Pre/Post Dialysis Refused With clothes 138.313315442072 BP Diastolic BP Location Tested BP Systolic BP Type 64 L arm 110 sitting Fetus Heart Rate Present Fetus Movement Comments Menstrual History Last Menstrual Date Menses Monthly On Bcp Conception Prior Menses Frequency Hcg Plus Date Menarche Onset Age Delivery Information Delivery Date Delivery Type Labor Anesthesia Weeks Gestation Incision Type Labor Labor Length Hrs Delivered By Post Complications Tubal Sterilization Discharge Date Comments Discharge Information Feeding Method Contraceptive Method Maternal HG B and HCT Levels
--- OUTSIDE RECORDS SUMMARY | 2024-02-24 15:38 | XMS_ITS | Continuity of Care Document ---
Author Organization [facility], , [facility], OFFICE Address [address] [place] [address] Care Team Providers Care Blower Feeder Dyed Raw Stock Name Role Phone CARON LEON Child Neurologist LYUDMILA YANES Nail Feeder JOSHUA NARAYAN Flight Operations Dispatch Clerk LOUISE TORO Sports Medicine RIA KEITH Primary Care Provider Assessment Encounter Date Assessment Date Assessment LastModified by Organization Details LastModified Time 12/19/2023 12/19/2023 General Health Maintenance Recent administration of COVID-19 and flu vaccines. -Advise to space out vaccines in the future due to immunosuppressive medications. [email or web address] Not available 12/20/2023 09:15:55 Plan of Treatment Reminders Order Date Submit Date Provider Last Modified By Organization Details Last Modified Time Details Appointments Wellness Visit 30 2024 10:45A M Ria Keith MD Not available Not available Not available Lab rapid strep group A, throat 2023 024 [email or web address] [facility], [address] [place] [address], [id number], 12/20/2023 09:28:15 culture, throat 2023 024 [facility], [address] [place] [address], [id number], 12/22/2023 12:23:51 CBC 2023 024 [facility], [address] [place] [address], [id number], 12/24/2023 09:29:55 C-reactiv e protein, quantitat memo, serum or plasma 2023 [facility], [address] [place] [address], [address], 12/25/2023 10:58:00 ESR (erythroc yte sedimenta tion rate), blood 2023 [facility], [address] [place] [address], [address], 12/24/2023 10:05:05 culture, blood 2023 [facility], [address] [place] [address], [address], 12/29/2023 05:58:57 culture, blood 2023 [facility], [address] [place] [address], [id number], 12/29/2023 05:58:59 Referral None recorded. Procedures None recorded. Surgeries None recorded. Imaging None recorded. Medication Orders Augmentin 875 mg-125 mg tablet 2023 WARWICK Jaquelin [address] ([facility]), [address] [place] [address], [id number], 01/03/2024 11:09:33 Patient TargetsNo targets recorded. Patient InstructionsNo instructions recorded. Reason for Referral None Reported. Results Created Date Observation Date Name Description Value Unit Range Abnormal Flag Note LastModifiedBy Organization Detail LastModifiedTime 06/30/19 09 06/26/2008 mammo gram, scree carl No observ ation record ed. [facility] [address] [place], [address], 09/26/2012 03:20:09 10/13/19 10 lobo metry testi ng* No observ ation record ed. eliud Not Available 12/26 15:45:22 10/20/19 10 10/17/2009 routi ne mammo graph y exam, scree carl No observ ation record ed. [address], [address], 09/26/2012 04:17:12 03/28/19 11 03/27/2010 x-ray , chest No observ ation record ed. [facility] (Imaging) [address], [place], [address], 09/26/2012 04:39:31 11/28/19 11 11/24/2010 MAMMO , scree carl, digit al, bilat eral No observ ation record ed. [address], [address], 09/26/2012 05:23:44 12/03/19 12 11/30/2011 MAMMO , scree carl, digit al, bilat eral No observ ation record ed. [address], [address], 09/27/2012 03:37:57 12/31/19 13 12/30/2012 mammo gram, [...] Negati ve Electr onical ly signed Readin davonte Physic azra: Ger Sethi MD [address] (Imaging) [address] [place], [address], 12/31/2012 16:31:42 01/01/20 13 12/31/2012 x-ray , knee OBSERV ATION: Left knee: Histor y: Knee pain 3 views. No fractu re or disloc ation is seen. No arthri tis or focal bone pathol ogy. No eviden ce of joint effusi on. Impres lindsay: Normal left knee series . Electr onical ly signed Readsilvano g Physic azra: Ger Sethi MD [facility] (Imaging) [address] [place], [address], 01/01/2013 15:41:38 01/05/20 14 01/01/2014 mammo gram, [...] Readin g Physic azra: Ger Sethi MD [facility] (Imaging) [address] [place], [address], 01/04/2014 19:23:07 05/21/19 16 05/20/2015 x-ray , [...] code POS: VMG Electr onical ly signed Jesse arauz Physic azra: Dav Fay [email or web address] [facility] (Imaging) [address] [place], [address], 06/17/2015 18:04:02 05/21/19 16 05/20/2015 x-ray , [...] signed Readin g Physic azra: Dav Fay [address] (Imaging) [address] [place], [address], 06/17/2015 18:04:02 06/09/19 16 06/09/2015 x-ray , [...] Readin g Physic azra: Bhavin Allen MD [address] (Imaging) [address] [place], [address], 06/17/2015 18:04:03 07/01/19 16 06/30/2015 x-ray , [...] ly signed Readin g Physic azra[facility] [address] [place], [address], 07/02/2015 11:42:18 03/03/20 16 03/02/2016 MAMMO , gae carl, digit al, bilat eral OBSERV ATION: [...] signed Jesse arauz Physic azra: Dav Fay [facility] (Imaging) [address] [place], [address], 03/03/2016 14:10:02 03/05/19 18 03/05/2017 MAMMO , jaydon henry, digit al, bilat eral OBSERV ATION: Screen [...] signed Jesse arauz Physic azra: Dav Fay [facility] (Imaging) [address] [place], [address], 03/05/2017 13:47:27 10/18/19 18 10/17/2017 XR, knee, weigh tbear ing OBSERV ATION: EXAM: Radiog raphs of left knee, 3 views COMPAR ARSH: Octobe r 2012 Histor y: Left knee rule out osteoa rthrit is FINDIN GS: Includ ed bone struct ures are intact and in anatom ic alignm ent. Joint spaces are preser diamond. [place] ing soft tissue s are unrema rkable . IMPRES LINDSAY: No eviden ce of osteoa rthrit is. Electr onical ly signed Jesse arauz Physic azra: Robert bob [facility] (Imaging) [address] [place], [address], 10/18/2017 07:52:11 03/21/19 19 03/21/2018 MAMMO , [...] Jesse arauz Physic azra: Kenny garcia MD [address] (Imaging) [address] [place], [address], 03/21/2018 08:43:56 05/02/19 20 05/02/2019 XR, hand [...] bone abnorm ality. Electr onical ly signed Readsilvano arauz Physic azra: Emmanuel Fuller ms [facility] (Imaging) [address] [place], [address], 05/04/2019 11:18:52 12/06/1912/03/2019 MAMMO , scree carl, [...] 1, NEGATI VE Electr onical ly signed Readsilvano arauz Physic azra: Emmanuel Fuller [facility] (Imaging) [address] [place], [address], 12/07/2019 10:38:24 01/01/2012/24/2019 bone densi ty OBSERV [...] This scan was perfor med using the CyberVision Textar Prodig y Primo [address] [facility] , [place] [id number] [place]. Read by: Nae Culp on, MS, OFFAL TRIMMER-BC , CCD Electr onical ly signed Jesse pateln: Ira Mathis [facility] (Imaging) [address], [place], [address], 01/25/2020 09:02:36 06/29/1906/28/2020 XR, kidne y + urete r + [...] fibroi d. Electr onical ly signed Readsilvano g Physic azra: Emmanuel Fuller ms [email or web address] [facility] (Imaging) [address], [place], [address], 06/28/2020 14:40:08 06/29/19 21 06/28/2020 [place], kidne [...] id residu al. 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 TECHNI QUE: AP, obliqu e and latera l views of the right knee obtain ed. COMPAR ARSH: 016 FINDIN GS: There is no fractu re, sublux ation or disloc ation. The joint spaces are mainta ined. IMPRES LINDSAY: No acute bone abnorm ality. Readsilvano arauz Physic azra: Emmanuel Fuller ms orlando [facility] (Imaging) [address] [place], [address], 12/03/2021 20:24:51 10/13/19 23 10/12/2022 MAMMO , [...] y was mailed to your patien t gustabo carneyg the result s and recomm endati ons [...] arauz Physic azra: Emmanuel Fuller ms [email or web address] [facility] (Imaging) [address], [place], [address], 10/15/2022 08:56:27 12/19/19 24 12/19/2023 XR, chest [...] arauz Physic azra: Emmanuel Fuller ms [email or web address] [facility] (Imaging) [address] [place], [address], 12/20/2023 09:18:35 12/19/19 24 12/19/2023 XR, chest [...] acute diseas e. Jesse arauz Physic azra: Lutherata webb Gilleslisbeth perales [email or web address] [facility] (Imaging) [address] [place], [address], 12/20/2023 09:18:35 Result Notes None recorded. Problems Name Problem SNOMED Code Status Onset Date Resolution Date Notes Provider Name and Address Organization Details Recorded Time Mixed hyperlipid emia 085498399 Completed 2008 Leandro Zheng DPM [address] [place] [address], [address] , [facility] 6 15:19:03 Common cold 81556443 Completed 01/21/2013 Not Available [facility] 3 02:00:30 Pneumonia 479823310 Completed 01/21/2013 Not Available [facility] 3 02:02:26 Knee pain Completed 01/21/2013 Not Available [facility] 3 02:00:43 Exercise-i nduced asthma 17041444 Completed Not Available [facility] 3 03:15:46 Paronychia of finger 960506732 Completed 01/21/2013 Not Available [facility] 3 02:04:05 Intrinsic asthma 245836208 Completed Leandro Zheng DPM [address] [place] [address], , [facility] 6 15:19:03 Asthma 624013386 Completed NADYA Frederick [address] [place] [address], , [facility] 4 17:08:16 Allergic asthma without status asthmaticu s 38092389 Completed 2002 Leandro Zheng DPM [address] [place] [address], , [facility] 6 15:19:03 Adult health examinatio n Completed 09/28/2016 Ria Keith MD [address] [place] [address], , [facility] 7 19:52:37 Counseling Completed 09/28/2016 Ria Keith MD [address] [place] [address], , [facility] 7 19:52:43 Knee pain Active LUCERO Be [address] [place] [address], , [facility] 6 18:01:29 Uterine leiomyoma 76584616 Active Leandro Zheng DPM [address] [place] [address], , [facility] 6 15:19:03 Anterior knee pain 314708903 Completed 08/01/2017 Luanne Lozada NP [address] [place] [address], , [facility] 8 05:53:05 Metatarsal mike 24557202 Completed Leandro Zheng DPM [address] [place] [address], , [facility] 6 15:22:15 Pronation of foot 24536438 Completed Leandro Zheng DPM [address] [place] [address], , [facility] 6 15:22:15 Rheumatoid arthritis 51181764 Active Lyudmila Yanes MD [address] [place] [address], , [facility] 6 19:04:13 Rheumatoid arthritis 36264273 Completed Lyudmila Yanes MD [address] [place] [address], , [facility] 6 19:04:13 Knee pain Completed LUCERO Be [address] [place] [address], [address] , [facility] 6 18:01:29 Anterior knee pain 500745647 Completed Lyudmila Yanes MD [address] [place] [address], , [facility] 6 19:04:13 Tenosynovi tis of fingers 726542746 Active Lyudmila Yanes MD [address] [place] [address], , [facility] 6 19:04:13 Tenosynovi tis of fingers 579462302 Completed Lyudmila Yanes MD [address] [place] [address], , [facility] 6 19:04:13 Long-term drug therapy Completed 201508/01/2017 Luanne Lozada NP [address] [place] [address], , [facility] 8 05:53:11 Mixed hyperlipid emia 406841503 Active 2008 Leandro Zheng DPM [address] [place] [address], [address] , [facility] 6 15:19:03 Cough 78958466 Completed 200212/31/2012 Leandro Zheng DPM [address] [place] [address], [address] , [facility] 6 15:19:04 Extrinsic asthma with asthma attack Completed 200012/31/2012 Leandro Zheng DPM [address] [place] [address], [address] , [facility] 6 15:19:03 Shoulder pain 57134526 Completed 200312/31/2012 Leandro Zheng DPM [address] [place] [address], [address] , [facility] 6 15:19:04 Fever 806881122 Completed 200712/31/2012 Leandro Zheng DPM [address], [place], , [facility] 6 15:19:04 Myopia 42956319 Completed 200408/01/2017 Luanne Lozada NP [address] [place] [address], , [facility] 8 05:53:18 Intrinsic asthma 831954816 Active Leandro Zheng DPM [address] [place], [place], , [facility] 6 15:19:03 Skin sensation disturbanc e 09443777 Completed 200112/31/2012 Leandro Zheng DPM [address] [place], [place], , [facility] 6 15:19:04 Joint stiffness 72332213 Completed 200012/31/2012 Leandro Zheng DPM [address] [place], [place], , [facility] 6 15:19:04 Neck pain 39599796 Completed 200012/31/2012 Leandro Zheng DPM [address] [place], , [facility] 6 15:19:04 Allergic asthma without status asthmaticu s 98470483 Completed 200208/01/2017 Luanne Lozada NP [address], [place], , [facility] 8 05:53:25 Urticaria 838628914 Completed 200312/31/2012 Leandro Zheng DPM [address] [place], [address] , [facility] 6 15:19:04 Atopic dermatitis 96657337 Completed 200102/04/2015 Leandro Zheng DPM [address] [place], [address] , [facility] 6 15:19:03 Common cold 00573355 Completed 200012/31/2012 Leandro Zheng DPM [address] [place], [address] , [facility] 6 15:19:03 Knee pain Completed 200301/21/2013 Leandro Zheng DPM [address] [place], [address] , [facility] 6 15:19:04 On examinatio n - a rash Completed 200012/31/2012 Leandro Zheng DPM [address] [place], [address] , [facility] 6 15:19:04 Sprain of shoulder and upper arm Completed 200012/31/2012 Leandro Zheng DPM [address] [place], [address] , [facility] 6 15:19:04 Allergic rhinitis caused by pollen 14707042 Active 2002 Leandro Zheng DPM [address] [place], [address] , [facility] 6 15:19:03 Exercise-i nduced asthma 85176851 Completed 12/31/2012 Leandro Zheng DPM [address] [place], [address] , [facility] 6 15:19:03 White blood cell disorder 51194459 Completed 200302/04/2015 Leandro Zheng DPM [address] [place], [address] , [facility] 6 15:19:03 Anemia 959229151 Completed 200202/04/2015 Leandro Zheng DPM [address] [place], [address] , [facility] 6 15:19:03 Acute conjunctiv itis 95428404 Completed 200212/31/2012 Leandro Zheng DPM [address] [place], [address] , [facility] 6 15:19:03 Abnormal weight gain 037204503 Completed 200812/31/2012 Leandro Zheng DPM [address] [place], [address] , [facility] 6 15:19:04 Acute upper respirator y infection of multiple sites Completed 200712/31/2012 Leandro Zheng DPM [address] [place], [address] , [facility] 6 15:19:03 Acne 92591295 Completed 200102/04/2015 Leandro Zheng DPM [address] [place], [address] , [facility] 6 15:19:03 Acute bronchitis 29476802 Completed 200312/31/2012 Leandro Zheng DPM [address] [place], [address] , [facility] 6 15:19:03 Primary fibromyalg ia syndrome 61660924 Completed 200102/04/2015 Leandro Zheng DPM [address] [place], [address] , [facility] 6 15:19:04 Asthma 118674455 Completed 200012/31/2012 Leandro Zheng DPM [address] [place], [address] , [facility] 6 15:19:03 Neck sprain 739367291 Completed 200012/31/2012 Leandro Zheng DPM [address] [place], [address] , [facility] 6 15:19:04 Malaise and fatigue 373515071 Completed 200212/31/2012 Leandro Zheng DPM [address] [place], [address] , [facility] 6 15:19:04 Problem Notes None recorded. Procedures Surgical History Date Name Laterality Status Provider Name and Address Organization Details Recorded Time 09/20/19 50399: Therapeutic Exercise completed Larissa Estrada, PT [address] [place], [address], [facility] 09/19/2021 17:28:32 09/20/19 22 Treatment and Advice completed Larissa Estrada, PT [address] [place], [address], [facility] 09/19/2021 17:28:32 08/30/19 22 99187: Therapeutic Exercise completed Larissa Estrada, PT [address] [place], [address], [facility] 08/29/2021 17:35:35 08/30/19 22 Treatment and Advice completed Larissa Estrada, PT [address] [place], [address], [facility] 08/29/2021 18:00:56 08/23/19 22904: Therapeutic Exercise completed Larissa Estrada, PT [address] [place], [address], [facility] 08/22/2021 18:03:21 08/23/19 22 Treatment and Advice completed Larissa Estrada, PT [address] [place], [address], [facility] 08/22/2021 18:05:32 08/16/19 81767: Therapeutic Exercise completed Larissa Estrada, PT [address] [place], [address], [facility] 08/15/2021 19:47:05 08/16/19 22 Treatment and Advice completed Larissa Estrada, PT [address] [place], [address], [facility] 08/15/2021 19:46:19 08/11/19 22 Physical Activity Counselling completed Larissa Estrada, PT [address] [place], [address], [facility] 08/10/2021 07:42:47 08/11/19 22 61982: PT Eval Low Complexity completed Larissa Estrada, PT [address] [place], [address], [facility] 08/10/2021 07:42:44 08/11/19 22 Treatment and Advice completed Larissa Estrada, PT [address] [place], [address], [facility] 08/10/2021 08:02:43 06/27/19 22 Asthma Control Test (12 + years old) completed Katelin Chao [facility] 06/26/2021 15:59:49 12/08/19 21 Asthma Control Test (12 + years old) [facility] 14:38:53 05/03/19 21 prevention-card iovascular risk reduction counseling completed Melissa Dunn [facility] 05/02/2020 15:19:26 05/03/19 21 prevention-lynda al alcohol misuse screening completed Melissa Mona [facility] 05/02/2020 15:19:26 04/27/19 20 Trigger Finger Injection RB completed Lyudmila Yanes MD [address] [place], [address], [facility] 04/27/2019 15:25:34 09/27/19 19 Generic Procedure Template completed Lyudmila Yanes MD [address] [place] [address], [address], [facility] 09/28/2018 11:36:46 07/11/19 19 Physical Activity Counselling completed Goergina Solares, OT [address] [place], [address], [facility] 07/10/2018 20:39:55 07/11/19 19 81502: OT Eval, Moderate Complexity completed Georgina Solares, OT [address] [place], [address], [facility] 07/10/2018 20:39:59 09/28/19 18 59329: Therapeutic Exercise completed Leandro Pike, PT [address] [place], [address], [facility] 09/27/2017 14:40:27 09/28/19 18 Treatment and Advice completed Leandro Pike, PT [address] [place], [address], [facility] 09/27/2017 14:56:47 08/31/19 18 59132: Therapeutic Exercise completed Leandro Pike, PT [address] [place], [address], [facility] 08/30/2017 10:37:08 08/31/19 18 79326: Ultrasound (1:1) completed Leandro Pike, PT [address] [place], [address], [facility] 08/30/2017 10:37:39 08/31/19 18 Treatment and Advice completed Leandro Pike, PT [address] [place], [address], [facility] 08/30/2017 10:34:51 08/24/19 18 51368: Therapeutic Exercise completed Leandro Pike, PT [address] [place], [address], [facility] 08/23/2017 11:28:22 08/24/19 18 Treatment and Advice completed Leandro Pike, PT [address] [place], [address], [facility] 08/23/2017 11:28:04 08/17/19 18 Physical Activity Counselling completed Leandro Pike, PT [address] [place], [address], [facility] 08/16/2017 16:36:13 08/17/19 18 57470: PT Eval Low Complexity completed Leandro Pike, PT [address] [place], [address], [facility] 08/16/2017 16:36:13 08/14/19 18 Nebulizer Tx completed Eliane Rodgers [facility] 08/13/2017 10:51:42 08/12/19 16 97121: Therapeutic Exercise completed Leandro Pike, PT [address] [place], [address], [facility] 08/12/2015 17:00:08 08/12/19 16 Treatment and Advice completed Leandro Pike, PT [address] [place], [address], [facility] 08/12/2015 17:00:08 07/29/19 16 24090: Therapeutic Exercise completed Leandro Pike, PT [address] [place], [address], [facility] 07/30/2015 07:14:21 07/29/19 16 Treatment and Advice completed Leandro Pike, PT [address] [place], [address], [facility] 07/29/2015 16:58:00 07/26/19 16 Trigger Finger Injection RB completed Lyudmila Yanes MD [address] [place], [address], [facility] 07/26/2015 19:03:32 07/15/19 16 86169: PT Evaluation completed Leandro Pike, PT [address] [place], [address], [facility] 07/15/2015 17:30:08 04/29/19 16 04446: Therapeutic Exercise completed Leandro Pike, PT [address] [place], [address], [facility] 05/01/2015 11:32:49 04/08/19 16 95063: Therapeutic Exercise completed Leandro Pike, PT [address] [place], [address], [facility] 04/08/2015 17:14:33 03/18/19 16 97096: Therapeutic Exercise completed Leandro Pike, PT [address] [place], [address], [facility] 03/18/2015 18:20:59 03/11/19 16 Yelitza - Colonoscopy completed Bhavin Torre MD [address] [place], [address], [facility] 03/11/2015 07:53:39 02/19/20 15 78463: PT Evaluation completed Leandro Pike, PT [address] [place], [address], [facility] 02/18/2015 16:14:24 01/01/20 13 Asthma Control Test (12 + years old) completed Genesis Eloy [facility] 12/31/2012 15:56:03 12/31/19 10 Treatment and Advice completed Leandro Pike, PT [address] [place], [address], [facility] 12/30/2009 13:38:40 12/24/19 10 Treatment and Advice completed Leandro Pike, PT [address] [place], [address], [facility] 12/23/2009 13:36:51 11/29/19 10 Treatment and Advice completed Leandro Pike, PT [address] [place], [address], [facility] 11/28/2009 12:30:58 Imaging Results None recorded. Procedure Notes None recorded. Medical Equipment None Reported. Allergies Allergen ID Allergen Name Allergen Category Reaction Reaction Severity Criticality Documentation Date Start Date Code Code System Note Provider Name and Address Organization Details Recorded Time 18790709 diphenhyd ramine medicatio n edema Not available Not available 05/05/2015 3498 RxNorm Zenia RICK Griffith null, [facility] 6 16:42:55 765215 adhesive environme nt,medica tion rash mild low 08/22/20212021 Larissa henao, PT [address] [facility] [place], [address], [facility] 2 17:37:01 6504 Benadryl medicatio n Not available Not available Not available 05/24/200861464 7 RxNorm swell ing & eyes water ing Not Available [facility] 1 06:05:20 Medications Name Sig Start Date [...] completed Not Available Not Available Not Available Pro[employer] r 11/27 completed Not Available Not Available Not Available Arnuity Ellipta 200 mcg/actua tion powder for inhalatio n active Not Available Not Available Not Available Arnuity Ellipta 100 mcg/actua tion powder for inhalatio n Inhale 2 puffs every day by inhalati on route for 30 days. active Not Available Not Available No t Available Vitals Date Recorded Body height Body mass index (BMI) Body weight Oxygen saturation Oxygen saturation in Arterial blood by Pulse oximetry Heart rate Body temperature Systolic blood pressure Diastolic blood pressure Provider Name and Address Organization Details Last Updated DateTime 4 149.23 cm 28.1 kg/m2 29875.7 5 g 99 % 99 % 64 /min 100.4 [degF] 120 mm[Hg] 80 mm[Hg] Vicki Rajivfidel [facility] 4 16:08:49 Social History Question Answer Notes LastModified by Organizat ion Details LastModified Time Tobacco Smoking Status Never Smoker Not Available [facility] 01/18/2011 04:53:49 Do You Have An Advance Directive? Yes [email or web address] Information not available 02/07/2022 What Is Your Level Of Alcohol Consumption? None Information not available 09/20/2017 Do You Wear A Helmet When Biking? Yes [email or web address] Information not available 02/07/2022 What Is Your Level Of Caffeine Consumption? Occasional 1 Iced Mocha A Week [email or web address] Information not available 06/28/2023 How Much Tobacco [...] Or The Highest Degree You Have Received? 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 No Information not available 12/31/2012 Does The Patient Have Difficulty Reading Gabonese? No Information not available 12/31/2012 Patient Has Health Care Proxy Signed And In Chart No Hattie Rosenbaum () [email or web address] Information not available 02/21/2018 Marital Status [email or web address] Informatio n not available 02/07/2022 Mosquito Repellent Used Routinely Yes [email or web address] Information not available 02/07/2022 What Was The Date Of Your Most Recent Tobacco Screening? 01/03/2024 [email or web address] Information not available 01/03/2024 How Many Children [...] Other Forms Of Tobacco Or Nicotine? No [email or web address] Information not available 06/28/2023 Sex: Female Functional [...] influenza, unspecified formulation 3 completed Not Available [facility] 01/17/2011 05:21:07 Influenza, split virus, trivalent, preservative 1 completed Not Available [facility] 03/21/2019 02:31:48 pneumococcal polysaccharide PPV23 1 completed Not Available [facility] 03/21/2019 02:14:31 influenza, unspecified formulation 4 completed Not Available [facility] 01/17/2011 05:21:07 Td(adult) unspecified formulation 3 completed Not Available [facility] 01/17/2011 05:21:07 influenza, unspecified formulation 5 completed Not Available [facility] 01/17/2011 05:21:29 influenza, unspecified formulation 7 completed Not Available [facility] 01/17/2011 05:21:55 influenza, unspecified formulation 8 completed Not Available [facility] 01/17/2011 05:21:55 Influenza, split virus, trivalent, PF 3 completed Not Available [facility] 03/21/2019 02:18:59 Tdap 3 completed Not Available [facility] 03/21/2019 02:34:58 Influenza, split virus, trivalent, preservative 2 completed Not Available [facility] 02/07/2022 15:35:28 Influenza, split virus, quadrivalent, PF 8 completed Not Available [facility] 03/21/2019 02:34:54 Influenza, split virus, trivalent, preservative 0 completed Not Available [facility] 03/21/2019 02:37:14 Pneumococcal conjugate PCV 13 0 completed Suad Pineda RN null, [facility] 11/06/2019 11:27:05 Influenza, split virus, quadrivalent, preservative 0 completed Not Available [email or web address] 02/07/2022 15:35:28 Influenza, split virus, quadrivalent, PF 2 completed Ria Keith MD [address] [place] [address], [phone], [facility] 12/03/2021 20:19:22 Td (adult), 2 Lf tetanus toxoid, preservative free, adsorbed 3 completed Ria Keith MD [address] [place] [address], [phone], [facility] 06/24/2022 19:16:30 Influenza, split virus, quadrivalent, PF 3 completed Alanna Brice LPN [facility] 12/16/2022 10:18:58 COVID-19, mRNA, LNP-S, PF, 30 mcg/0.3 mL dose 1 completed Gisela Adams MA [facility] 11/22/2023 12:18:23 COVID-19, mRNA, LNP-S, PF, 30 mcg/0.3 mL dose 1 completed Melissa Dunn MA [facility] 12/07/2020 14:33:59 Influenza, split virus, quadrivalent, preservative 1 completed Gisela Adams MA [facility] 11/22/2023 12:18:23 COVID-19, mRNA, LNP-S, bivalent, PF, 30 mcg/0.3 mL dose 2 [facility]/22[facility] 12:18:23 zoster recombinant 2 completed [facility] 11/22/2023 12:18:23 zoster recombinant 2 completed [facility] 11/22/2023 12:18:23 COVID-19, mRNA, LNP-S, PF, 30 mcg/0.3 mL dose 1 completed [facility] 11/22/2023 12:18:23 COVID-19, mRNA, LNP-S, PF, 30 mcg/0.3 mL dose 1 completed [facility] 11/22/2023 12:18:23 COVID-19, mRNA, LNP-S, PF, 30 mcg/0.3 mL dose 1 completed [facility] 11/22/2023 12:18:23 COVID-19, mRNA, LNP-S, PF, 30 mcg/0.3 mL dose, lara-sucrose 2 [facility] 12:18:23 COVID-19, mRNA, LNP-S, PF, lara-sucrose, 30 mcg/0.3 mL 3 completed [facility] 11/22/2023 12:18:23 COVID-19, mRNA, LNP-S, PF, 50 mcg/0.5 mL 4 [facility] 11/22/2023 12:18:23 Influenza, split virus, trivalent, preservative 9 [facility] 11/22/2023 12:18:23 Influenza, split virus, quadrivalent, PF 1 completed [facility] 11/22/2023 12:18:23 Influenza, MDCK, trivalent, PF 4 completed Gisela Adams MA [facility] 11/22/2023 12:18:23 Past Encounters Encounter ID Performer Location Encounter Start Date Encounter Closed Date Diagnosis/Indication Diagnosis SNOMED-CT Code Diagnosis ICD10 Code [id number] Ria Keith MD , [facility], [address] [place] [address] 11/22/2023 11:57:33 11/25/2023 19:53:19 Asthma 039421524 J45.909 Intrinsic asthma 5211717 08 J45.909 Allergic a sthma without status asthmaticus 25329043 J45.909 [id number] DO LULA VILLA, [facility], [address] [place] [address] 12/03/2023 13:29:05 12/05/2023 12:28:39 Upper respiratory infection 73612201 J06.9 Intrinsic asthma 5181340 08 [facility].909 [id number] DO LULA VILLA, [facility], [address] [place] [address] 12/19/2023 15:31:15 12/20/2023 12:05:02 Cough 19002046 R05.9 Rheumatoid arthritis 698 91709 M06.9 Health Concerns Section Related Observation LastModified by Organization Detai ls LastModified Time None Recorded Concern Status LastModified by Organization Details LastModified Time None Recorded Payers Encounter Date Sequence Insurance Name Policy Number Policy Manzanares Covered Member ID Manzanares Member ID Guarantor Name 12/19/2023 1 [facility]: [facility] [place] [id number] Jerica Robi [id number] Jerica Robi Notes Date Note Type Note Provider Name and Address Organization Details Recorded Time 12/19/2023 text/html 12/19/23- Pt her e today for a same dy visitComplains of cough, fever x 5 weeks no improvementStated that has also seen SE got prescribed prednisone, no improvement, saw [facility] got prescribed cough medicine also has not helped History of Present IllnessThe patient, with a history of asthma and rheumatoid arthritis, presents with a five-week history of feeling unwell. The patient reports persistent coughing, chills, and fever. The patient's symptoms have not improved despite a ten-day course of oral prednisone, prescribed by their primary care physician who suspected an asthma exacerbation. The patient also reports a lack of appetite and a preference for drinking fluids. The patient has been on methotrexate for several years for rheumatoid arthritis, which is monitored by a medication aide. The patient reports that they have been taking three pills of methotrexate per week. The patient also reports that they have been taking Motrin at night to manage symptoms of rheumatoid arthritis. The patient received both the COVID-19 and flu vaccines around the time the symptoms started. The patient reports that they have not felt well since receiving the vaccines. The patient has had a chest x-ray and a strep test, the latter of which came back negative. The patient reports that their coughing is worse at night and that they have been unable to sleep well due to the coughing. VALENTINO HASSAN, [address], [address], 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 Status 02/24/20 CLOSED Fetus Data First Name Last Name Admitted to NICU Weight (g) Sex Living Outcome Pediatric Complications Fetus ID Race Codes Race Delivery Type 7 Problems Problem Notes Problem Name Start Date End Date Resolution Snomed Code Not e Tenosynovitis of fingers 95297 6003 Knee pain 31466731 Anterior knee pain 195099451 Metatarsalgia 52417260 Pronation of foot 41880474 Rheumatoid arthritis 43825484 Mixed hyperlipidemia 12/23/2008 57708268 3 Exercise-induced asthma 872446 02 Intrinsic asthma 272139979 Asthma 725352272 Allergic asthma without stat us asthmaticus 01/21/2003 [id number] Osiel Calculation OSIEL Calculation Method Initial Osiel [...] Ultra Sound Latest Days Gestation 0 0 Pre- Flowsheet Flowsheet Date 05/24/2008 Brizuela Score Blood Edema Fundus Height Fundus Units Glucose Ketones Leukocytes Nitrite Labor Signs Protein Cervic Dilation Cervic Effacement Cervic Station Type Weight in lbs Pre/Post Dialysis Refused 132.063061617433 BP Diastolic BP Location Tested BP Systolic BP Type 54 R arm 116 sitting Fetus Heart Rate Present Fetus Movement Comments Flowsheet Date 06/02/2008 Brizuela Score Blood Edema Fundus Height Fundus Units Glucose Ketones Leukocytes Nitrite Labor Signs Protein Cervic Dilation Cervic Effacement Cervic Station Type Weight in lbs Pre/Post Dialysis Refused 126.60797102461 BP Diastolic BP Location Tested BP Systolic BP Type 82 L arm 96 sitting Fetus Heart Rate Present Fetus Movement Comments Flowsheet Date 06/26/2008 Brizuela Score Blood Edema Fundus Height Fundus [...] Type Weight in lbs Pre/Post Dialysis Refused 134.332387113084 BP Diastolic BP Location Tested BP Systolic [...] Type Weight in lbs Pre/Post Dialysis Refused 136.803155669401 BP Diastolic BP Location Tested BP Systolic BP Type 74 L arm 118 sitting Fetus Heart Rate Present Fetus Movement Comments Flowsheet Date 10/12/2009 Brizuela Score Blood Edema Fundus Height Fundus Units Glucose Ketones Leukocytes Nitrite Labor Signs Protein Cervic Dilation Cervic Effacement Cervic Station Type Weight in lbs Pre/Post Dialysis Refused 135.000614124961 BP Diastolic BP Location Tested BP Systolic [...] Type Weight in lbs Pre/Post Dialysis Refused 139.602084494479 BP Diastolic BP Location Tested BP Systolic BP Type 72 L arm 98 sitting Fetus Heart Rate Present Fetus Movement Comments Flowsheet Date 11/25/2009 Brizuela Score Blood Edema Fundus Height Fundus Units Glucose Ketones Leukocytes Nitrite Labor Signs Protein Cervic Dilation Cervic Effacement Cervic Station Type Weight in lbs Pre/Post Dialysis Refused 140.095822193618 BP Diastolic BP Location Tested BP Systolic [...] Type Weight in lbs Pre/Post Dialysis Refused 138.049865778041 BP Diastolic BP Location Tested BP Systolic BP Type 78 R arm 104 sitting Fetus Heart Rate Present Fetus Movement Comments Flowsheet Date 03/27/2010 Brizuela Score Blood Edema Fundus Height Fundus Units Glucose Ketones Leukocytes Nitrite Labor Signs Protein Cervic Dilation Cervic Effacement Cervic Station Type Weight in lbs Pre/Post Dialysis Refused 142.259308695267 BP Diastolic BP Location Tested BP Systolic [...] Type Weight in lbs Pre/Post Dialysis Refused 139.857368678738 BP Diastolic BP Location Tested BP Systolic BP Type 68 L arm 112 sitting Fetus Heart Rate Present Fetus Movement Comments Flowsheet Date 08/15/2010 Brizuela Score Blood Edema Fundus Height Fundus Units Glucose Ketones Leukocytes Nitrite Labor Signs Protein Cervic Dilation Cervic Effacement Cervic Station Type Weight in lbs Pre/Post Dialysis Refused 137.006577398177 BP Diastolic BP Location Tested BP Systolic BP Type 68 R arm 108 sitting Fetus Heart Rate Present Fetus Movement Comments Flowsheet Date 08/28/2010 Brizuela Score Blood Edema Fundus Height Fundus Units Glucose Ketones Leukocytes Nitrite Labor Signs Protein Cervic Dilation Cervic Effacement Cervic Station Type Weight in lbs Pre/Post Dialysis Refused 133.728184245949 BP Diastolic BP Location Tested BP Systolic [...] Type Weight in lbs Pre/Post Dialysis Refused 133.089144580347 BP Diastolic BP Location Tested BP Systolic BP Type 68 L arm 114 sitting Fetus Heart Rate Present Fetus Movement Comments Flowsheet Date 10/22/2011 Brizuela Score Blood Edema Fundus Height Fundus Units Glucose Ketones Leukocytes Nitrite Labor Signs Protein Cervic Dilation Cervic Effacement Cervic Station Type Weight in lbs Pre/Post Dialysis Refused 134.360654343074 BP Diastolic BP Location Tested BP Systolic [...] Type Weight in lbs Pre/Post Dialysis Refused 131.660180352709 BP Diastolic BP Location Tested BP Systolic [...] Type Weight in lbs Pre/Post Dialysis Refused 128.539125920248 BP Diastolic BP Location Tested BP Systolic BP Type 76 L arm 102 sitting Fetus Heart Rate Present Fetus Movement Comments Flowsheet Date 05/26/2013 Brizuela Score Blood Edema Fundus Height Fundus Units Glucose Ketones Leukocytes Nitrite Labor Signs Protein Cervic Dilation Cervic Effacement Cervic Station Type Weight in lbs Pre/Post Dialysis Refused 129.804400308989 BP Diastolic BP Location Tested BP Systolic BP Type 72 L arm 110 sitting Fetus Heart Rate Present Fetus Movement Comments Flowsheet Date 02/04/2015 Brizuela Score Blood Edema Fundus Height Fundus Units Glucose Ketones Leukocytes Nitrite Labor Signs Protein Cervic Dilation Cervic Effacement Cervic Station Type Weight in lbs Pre/Post Dialysis Refused 140.7864767250 BP Diastolic BP Location Tested BP Systolic [...] Type Weight in lbs Pre/Post Dialysis Refused 140.5777061920 BP Diastolic BP Location Tested BP Systolic [...] Type Weight in lbs Pre/Post Dialysis Refused 139.851473511032 BP Diastolic BP Location Tested BP Systolic [...] Type Weight in lbs Pre/Post Dialysis Refused 140.400910305918 BP Diastolic BP Location Tested BP Systolic BP Type 66 R arm 112 sitting Fetus Heart Rate Present Fetus Movement Comments Flowsheet Date 05/12/2015 Brizuela Score Blood Edema Fundus Height Fundus Units Glucose Ketones Leukocytes Nitrite Labor Signs Protein Cervic Dilation Cervic Effacement Cervic Station Type Weight in lbs Pre/Post Dialysis Refused 140.915817261379 BP Diastolic BP Location Tested BP Systolic [...] Type Weight in lbs Pre/Post Dialysis Refused 140.800615343854 BP Diastolic BP Location Tested BP Systolic BP Type 62 L arm 102 sitting Fetus Heart Rate Present Fetus Movement Comments Flowsheet Date 06/17/2015 Brizuela Score Blood Edema Fundus Height Fundus Units Glucose Ketones Leukocytes Nitrite Labor Signs Protein Cervic Dilation Cervic Effacement Cervic Station Type Weight in lbs Pre/Post Dialysis Refused 139.732907065611 BP Diastolic BP Location Tested BP Systolic BP Type 70 L arm 116 sitting Fetus Heart Rate Present Fetus Movement Comments Flowsheet Date 06/30/2015 Brizuela Score Blood Edema Fundus Height Fundus Units Glucose Ketones Leukocytes Nitrite Labor Signs Protein Cervic Dilation Cervic Effacement Cervic Station Type Weight in lbs Pre/Post Dialysis Refused 141.605900113850 BP Diastolic BP Location Tested BP Systolic [...] Type Weight in lbs Pre/Post Dialysis Refused 141.926591143502 BP Diastolic BP Location Tested BP Systolic [...] Type Weight in lbs Pre/Post Dialysis Refused 140.76029049258 BP Diastolic BP Location Tested BP Systolic [...] Type Weight in lbs Pre/Post Dialysis Refused 141.762843536871 BP Diastolic BP Location Tested BP Systolic BP Type 66 L arm 116 sitting Fetus Heart Rate Present Fetus Movement Comments Flowsheet Date 11/28/2015 Brizuela Score Blood Edema Fundus Height Fundus Units Glucose Ketones Leukocytes Nitrite Labor Signs Protein Cervic Dilation Cervic Effacement Cervic Station Type Weight in lbs Pre/Post Dialysis Refused 141.628443685479 BP Diastolic BP Location Tested BP Systolic BP Type 64 L arm 118 sitting Fetus Heart Rate Present Fetus Movement Comments Flowsheet Date 02/13/2016 Brizuela Score Blood Edema Fundus Height Fundus Units Glucose Ketones Leukocytes Nitrite Labor Signs Protein Cervic Dilation Cervic Effacement Cervic Station Type Weight in lbs Pre/Post Dialysis Refused 141.012673025444 BP Diastolic BP Location Tested BP Systolic BP Type 68 L arm 104 sitting Fetus Heart Rate Present Fetus Movement Comments Flowsheet Date 02/28/2016 Brizuela Score Blood Edema Fundus Height Fundus Units Glucose Ketones Leukocytes Nitrite Labor Signs Protein Cervic Dilation Cervic Effacement Cervic Station Type Weight in lbs Pre/Post Dialysis Refused 137.851277227468 BP Diastolic BP Location Tested BP Systolic BP Type 70 L arm 124 sitting Fetus Heart Rate Present Fetus Movement Comments Flowsheet Date 05/25/2016 Brizuela Score Blood Edema Fundus Height Fundus Units Glucose Ketones Leukocytes Nitrite Labor Signs Protein Cervic Dilation Cervic Effacement Cervic Station Type Weight in lbs Pre/Post Dialysis Refused 139.482444861447 BP Diastolic BP Location Tested BP Systolic BP Type 64 R arm 116 sitting Fetus Heart Rate Present Fetus Movement Comments Flowsheet Date 08/24/2016 Brizuela Score Blood Edema Fundus Height Fundus Units Glucose Ketones Leukocytes Nitrite Labor Signs Protein Cervic Dilation Cervic Effacement Cervic Station Type Weight in lbs Pre/Post Dialysis Refused 135.033230020322 BP Diastolic BP Location Tested BP Systolic BP Type 66 R arm 122 sitting Fetus Heart Rate Present Fetus Movement Comments Flowsheet Date 09/20/2016 Brizuela Score Blood Edema Fundus Height Fundus Units Glucose Ketones Leukocytes Nitrite Labor Signs Protein Cervic Dilation Cervic Effacement Cervic Station Type Weight in lbs Pre/Post Dialysis Refused 134.56742223676 BP Diastolic BP Location Tested BP Systolic BP Type 60 L arm 112 sitting Fetus Heart Rate Present Fetus Movement Comments Flowsheet Date 11/16/2016 Brizuela Score Blood Edema Fundus Height Fundus Units Glucose Ketones Leukocytes Nitrite Labor Signs Protein Cervic Dilation Cervic Effacement Cervic Station Type Weight in lbs Pre/Post Dialysis Refused 140.073235337328 BP Diastolic BP Location Tested BP Systolic BP Type 68 L arm 114 sitting Fetus Heart Rate Present Fetus Movement Comments Flowsheet Date 03/15/2017 Brizuela Score Blood Edema Fundus Height Fundus Units Glucose Ketones Leukocytes Nitrite Labor Signs Protein Cervic Dilation Cervic Effacement Cervic Station Type Weight in lbs Pre/Post Dialysis Refused 142.531292827314 BP Diastolic BP Location Tested BP Systolic BP Type 68 104 Fetus Heart Rate Present Fetus Movement Comments Flowsheet Date 06/27/2017 Brizuela Score Blood Edema Fundus Height Fundus Units Glucose Ketones Leukocytes Nitrite Labor Signs Protein Cervic Dilation Cervic Effacement Cervic Station Type Weight in lbs Pre/Post Dialysis Refused 136.288969785271 BP Diastolic BP Location Tested BP Systolic BP Type 80 L arm 120 sitting Fetus Heart Rate Present Fetus Movement Comments Flowsheet Date 07/31/2017 Brizuela Score Blood Edema Fundus Height Fundus Units Glucose Ketones Leukocytes Nitrite Labor Signs Protein Cervic Dilation Cervic Effacement Cervic Station Type Weight in lbs Pre/Post Dialysis Refused 138.337485497274 BP Diastolic BP Location Tested BP Systolic BP Type 62 R arm 104 sitting Fetus Heart Rate Present Fetus Movement Comments Flowsheet Date 08/13/2017 Brizuela Score Blood Edema Fundus Height Fundus Units Glucose Ketones Leukocytes Nitrite Labor Signs Protein Cervic Dilation Cervic Effacement Cervic Station Type Weight in lbs Pre/Post Dialysis Refused 136.134986781625 BP Diastolic BP Location Tested BP Systolic [...] Type Weight in lbs Pre/Post Dialysis Refused 136.567071565965 BP Diastolic BP Location Tested BP Systolic [...] Type Weight in lbs Pre/Post Dialysis Refused 139.44186610165 BP Diastolic BP Location Tested BP Systolic BP Type 71 R arm 112 sitting Fetus Heart Rate Present Fetus Movement Comments Flowsheet Date 03/14/2018 Brizuela Score Blood Edema Fundus Height Fundus Units Glucose Ketones Leukocytes Nitrite Labor Signs Protein Cervic Dilation Cervic Effacement Cervic Station Type Weight in lbs Pre/Post Dialysis Refused Weight 142.992795450260 BP Diastolic BP Location Tested BP Systolic BP Type 68 L arm 100 sitting Fetus Heart Rate Present Fetus Movement Comments Flowsheet Date 06/30/2018 Brizuela Score Blood Edema Fundus Height Fundus Units Glucose Ketones Leukocytes Nitrite Labor Signs Protein Cervic Dilation Cervic Effacement Cervic Station Type Weight in lbs Pre/Post Dialysis Refused Weight 139.097466404329 BP Diastolic BP Location Tested BP Systolic [...] Weight in lbs Pre/Post Dialysis Refused Weight 140.571389209834 BP Diastolic BP Location Tested BP Systolic [...] Weight in lbs Pre/Post Dialysis Refused Weight 137.247582856990 BP Diastolic BP Location Tested BP Systolic [...] Weight in lbs Pre/Post Dialysis Refused Stated 140.437925532079 BP Diastolic BP Location Tested BP Systolic [...] in lbs Pre/Post Dialysis Refused With clothes 140.580462422178 BP Diastolic BP Location Tested BP Systolic [...] Weight in lbs Pre/Post Dialysis Refused Weight 139.259591935851 BP Diastolic BP Location Tested BP Systolic BP Type 72 L arm 110 sitting Fetus Heart Rate Present Fetus Movement Comments Flowsheet Date 12/07/2020 Brizuela Score Blood Edema Fundus Height Fundus Units Glucose Ketones Leukocytes Nitrite Labor Signs Protein Cervic Dilation Cervic Effacement Cervic Station Type Weight in lbs Pre/Post Dialysis Refused With clothes 139.177988126885 BP Diastolic BP Location Tested BP Systolic [...] Weight in lbs Pre/Post Dialysis Refused Weight 140.365546620596 BP Diastolic BP Location Tested BP Systolic BP Type 58 102 Fetus Heart Rate Present Fetus Movement Comments Flowsheet Date 07/20/2021 Brizuela Score Blood Edema Fundus Height Fundus Units Glucose Ketones Leukocytes Nitrite Labor Signs Protein Cervic Dilation Cervic Effacement Cervic Station Type Weight in lbs Pre/Post Dialysis Refused With clothes 141.119781757504 BP Diastolic BP Location Tested BP Systolic [...] Weight in lbs Pre/Post Dialysis Refused Weight 137.374093235619 BP Diastolic BP Location Tested BP Systolic BP Type 60 R arm 102 sitting Fetus Heart Rate Present Fetus Movement Comments Flowsheet Date 02/07/2022 Brizuela Score Blood Edema Fundus Height Fundus Units Glucose Ketones Leukocytes Nitrite Labor Signs Protein Cervic Dilation Cervic Effacement Cervic Station Type Weight in lbs Pre/Post Dialysis Refused Weight 140.803003271420 BP Diastolic BP Location Tested BP Systolic BP Type 62 L arm 100 sitting Fetus Heart Rate Present Fetus Movement Comments Flowsheet Date 06/22/2022 Brizuela Score Blood Edema Fundus Height Fundus Units Glucose Ketones Leukocytes Nitrite Labor Signs Protein Cervic Dilation Cervic Effacement Cervic Station Type Weight in lbs Pre/Post Dialysis Refused With clothes 136.738170054016 BP Diastolic BP Location Tested BP Systolic [...] in lbs Pre/Post Dialysis Refused With clothes 139.082333300103 BP Diastolic BP Location Tested BP Systolic BP Type 60 R arm 90 sitting Fetus Heart Rate Present Fetus Movement Comments Flowsheet Date 03/18/2023 Brizuela Score Blood Edema Fundus Height Fundus Units Glucose Ketones Leukocytes Nitrite Labor Signs Protein Cervic Dilation Cervic Effacement Cervic Station Type Weight in lbs Pre/Post Dialysis Refused With clothes 139.522213909385 BP Diastolic BP Location Tested BP Systolic BP Type 62 R arm 92 sitting Fetus Heart Rate Present Fetus Movement Comments Flowsheet Date 03/29/2023 Brizuela Score Blood Edema Fundus Height Fundus Units Glucose Ketones Leukocytes Nitrite Labor Signs Protein Cervic Dilation Cervic Effacement Cervic Station Type Weight in lbs Pre/Post Dialysis Refused With clothes 139.953697567296 BP Diastolic BP Location Tested BP Systolic [...] in lbs Pre/Post Dialysis Refused With clothes 138.934597308953 BP Diastolic BP Location Tested BP Systolic [...] in lbs Pre/Post Dialysis Refused With clothes 138.339876902399 BP Diastolic BP Location Tested BP Systolic [...]
--- OUTSIDE RECORDS SUMMARY | 2024-02-24 15:38 | XMS_ITS | Continuity of Care Document ---
Author Organization [facility], , [facility], OFFICE Address [address] [place] [address] Care Team Providers Care Tire Retreader Name Role Phone EDWADR CARON Histology Specialist LYUDMILA YANES Costume Seamstress JOSHUA NARAYAN Network Contract Manager LOIUSE TORO Sports Medicine RIA KEITH Primary Care Provider Assessment No assessment recorded. Plan of Treatment Reminders Order Date Submit Date Provider Last Modified By Organization Details Last Modified Time Details Appointments Wellness Visit 30 2024 10:45A M Ria Keith MD Not available Not available Not available Lab None recorded. Referral None recorded. Procedures None recorded. Surgeries None recorded. Imaging None recorded. Medication Orders benzonata te 200 mg capsule 2023 024 [email or web address] [address] [facility] [address] ([facility]), [address] [place] [address], [id number], 01/03/2024 11:04:51 Patient TargetsNo targets recorded. Patient InstructionsNo instructions recorded. Reason for Referral None Reported. Results Created Date Observation Date Name Description Value Unit Range Abnormal Flag Note LastModifiedBy Organization Detail LastModifiedTime 06/30/19 09 06/26/2008 mammo gram, scree carl No observ ation record ed. [facility] [address] [place], [address], 09/26/2012 03:20:09 10/13/19 10 lobo metry testi ng* No observ ation record ed. [email or web address] Not Available 12/26 15:45:22 10/20/19 10 10/17/2009 routi ne mammo graph y exam, scree carl No observ ation record ed. [address], [address], 09/26/2012 04:17:12 03/28/19 11 03/27/2010 x-ray , chest No observ ation record ed. [facility] (Imaging) [address] [place], [address], 09/26/2012 04:39:31 11/28/19 11 11/24/2010 MAMMO , scree carl, digit al, bilat eral No observ ation record ed. [address], [address], 09/26/2012 05:23:44 12/03/19 12 11/30/2011 MAMMO , scree carl, digit al, bilat eral No observ ation record ed. [address], [address], 09/27/2012 03:37:57 12/31/19 13 12/30/2012 mammo gram, [...] Readin g Physic azra: [facility] [place] [address] (Imaging) [address] [place], [address], 12/31/2012 16:31:42 01/01/20 13 12/31/2012 x-ray , knee OBSERV ATION: Left knee: Histor y: Knee pain 3 views. No fractu re or disloc ation is seen. No arthri tis or focal bone pathol ogy. No eviden ce of joint effusi on. Impres lindsay: Normal left knee series . Electr onical ly signed Jesse arauz Physic azra: Ger Sethi MD [facility] (Imaging) [address] [place], [address], 01/01/2013 15:41:38 01/05/20 14 01/01/2014 mammo gram, [...] Jesse arauz Physic azra: Ger Sethi MD [facility] (Imaging) [address] [place], [address], 01/04/2014 19:23:07 05/21/19 16 05/20/2015 x-ray , [...] signed Jesse arauz Physic azra: Dav Nya [email or web address] [facility] (Imaging) [address] [place], [address], 06/17/2015 18:04:02 05/21/19 16 05/20/2015 x-ray , [...] signed Readin g Physic azra: Dav Fay [email or web address] [facility] (Imaging) [address] [place], [address], 06/17/2015 18:04:02 06/09/19 16 06/09/2015 x-ray , [...] Readin g Physic azra: Bhavin Allen MD [email or web address] [facility] (Imaging) [address] [place], [address], 06/17/2015 18:04:03 07/01/19 16 06/30/2015 x-ray , [...] ly signed Readin g Physic azra: Dav HARRIS [facility] (Imaging) [address] [place], [address], 07/02/2015 11:42:18 03/03/20 16 03/02/2016 MAMMO , [...] ed POS: VMG Electr onical ly signed Readin g Physic azra[facility] [address] [place], [address], 03/03/2016 14:10:02 03/05/19 18 03/05/2017 MAMMO , [...] ed POS: VMG Electr onical ly signed Readin g Physic azra: Dav Fay [facility] (Imaging) [address] [place], [address], 03/05/2017 13:47:27 10/18/19 18 10/17/2017 XR, knee, weigh tbear ing OBSERV ATION: EXAM: Radiog raphs of left knee, 3 views COMPAR ARSH: Octobe r 302012 Histor y: Left knee rule out osteoa rthrit is FINDIN GS: Includ ed bone struct ures are intact and in anatom ic alignm ent. Joint spaces are preser diamond. [place] ing soft tissue s are unrema rkable . IMPRES LINDSAY: No eviden ce of osteoa rthrit is. Electr onical ly signed Jesse arauz Physic azra: Robert bob [facility] (Imaging) [address] [place], [address], 10/18/2017 07:52:11 03/21/19 19 03/21/2018 MAMMO , [...] Jesse arauz Physic azra: Kenny garcia MD [address] (Imaging) [address] [place], [address], 03/21/2018 08:43:56 05/02/19 20 05/02/2019 XR, hand [...] Readsilvano arauz Physic azra: Emmanuel Fuller ms [facility] (Imaging) [address], [place], [address], 05/04/2019 11:18:52 12/06/1912/03/2019 MAMMO , scree carl, [...] signed Jesse arauz Physic azra: Emmanuel Fuller [facility] (Imaging) [address] [place], [address], 12/07/2019 10:38:24 01/01/2012/24/2019 bone densi ty OBSERV [...] to three years or as clinic ally indica rohan. Indica tion(s ): postme nopaus al Clinic [...] This scan was perfor med using the Novindaig y Primo 10 densit ometer at [facility] s [facility] , [id number] [place]. Read by: Nae Culp on, MS, LOCATION AND MEASUREMENT TECHNICIAN-BC , CCD Electr onical ly signed Jesse arauz Physic azra: Ira Mathis [facility] (Imaging) [address] , [place], [address], 01/25/2020 09:02:36 06/29/19 21 06/28/2020 XR, kidne [...] pelvic fibroi d. 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 TECHNI QUE: AP, obliqu e and latera l views of the right knee obtain ed. COMPAR ARSH: 016 FINDIN GS: There is no fractu re, sublux ation or disloc ation. The joint spaces are mainta ined. IMPRES LINDSAY: No acute bone abnorm ality. Jesse arauz Physic azra: [facility] (Imaging) [address] [place], [address], 12/03/2021 20:24:51 10/13/19 23 10/12/2022 MAMMO , [...] summar y was mailed to your patien frances lang the result s and recomm endati ons [...] on 2022 at 05:39: 03 PM Jesse g Physic azra: Emmanuel Fuller ms [email or web address] [facility] (Imaging) [address] [place], [address], 10/15/2022 08:56:27 12/19/19 24 12/19/2023 XR, chest [...] . IMPRES LINDSAY: No acute diseas e. Readin g Physic azra: Lutherata Fuller ms [email or web address] [facility] (Imaging) [address], [place], [address], 12/20/2023 09:18:35 12/19/19 24 12/19/2023 XR, chest [...] . IMPRES LINDSAY: No acute diseas e. Readin g Physic azra: Emmanuel Campoverdepatric ms [email or web address] [facility] (Imaging) [address], [place], [address], 12/20/2023 09:18:35 Result Notes None recorded. Problems Name Problem SNOMED Code Status Onset Date Resolution Date Notes Provider Name and Address Organization Details Recorded Time Mixed hyperlipid emia 059854250 Completed 2008 Leandro Zheng DPM [address] [place] [address], [address] , [facility] 6 15:19:03 Common cold 03509718 Completed 01/21/2013 Not Available [facility] 3 02:00:30 Pneumonia 678305035 Completed 01/21/2013 Not Available [facility] 3 02:02:26 Knee pain Completed 01/21/2013 Not Available [facility] 3 02:00:43 Exercise-i nduced asthma 20562152 Completed Not Available [facility] 3 03:15:46 Paronychia of finger 209583206 Completed 01/21/2013 Not Available [facility] 3 02:04:05 Intrinsic asthma 586751753 Completed Leandro Zheng DPM [address] [place] [address], , [facility] 6 15:19:03 Asthma 806238139 Completed NADYA Frederick [address] [place] [address], , [facility] 4 17:08:16 Allergic asthma without status asthmaticu s 78160796 Completed 2002 Leandro Zheng DPM [address] [place] [address], , [facility] 6 15:19:03 Adult health examinatio n Completed 09/28/2016 Ria Keith MD [address] [place] [address], , [facility] 7 19:52:37 Counseling Completed 09/28/2016 Ria Keith MD [address] [place] [address], , [facility] 7 19:52:43 Knee pain Active LUCERO Be [address] [place] [address], , [facility] 6 18:01:29 Uterine leiomyoma 09762956 Active Leandro Zheng DPM [address] [place] [address], , [facility] 6 15:19:03 Anterior knee pain 945112974 Completed 08/01/2017 Luanne Lozada NP [address] [place] [address], , [facility] 8 05:53:05 Metatarsal mike 29558283 Completed Leandro Zheng DPM [address] [place] [address], , [facility] 6 15:22:15 Pronation of foot 81576286 Completed Leandro Zheng DPM [address] [place] [address], , [facility] 6 15:22:15 Rheumatoid arthritis 82048786 Active Lyudmila Yanes MD [address] [place] [address], [address] , [facility] 6 19:04:13 Rheumatoid arthritis 00595690 Completed Lyudmila Yanes MD [address] [place] [address], , [facility] 6 19:04:13 Knee pain Completed LUCERO Be [address] [place] [address], , [facility] 6 18:01:29 Anterior knee pain 006213247 Completed Lyudmila Yanes MD [address] [place] [address], , [facility] 6 19:04:13 Tenosynovi tis of fingers 828356379 Active Lyudmila Yanes MD [address] [place] [address], , [facility] 6 19:04:13 Tenosynovi tis of fingers 616741310 Completed Lyudmila Yanes MD [address] [place] [address], , [facility] 6 19:04:13 Long-term drug therapy Completed 201508/01/2017 Luanne Lozada NP [address] [place] [address], , [facility] 8 05:53:11 Mixed hyperlipid emia 315426413 Active 2008 Leandro Zheng DPM [address] [place] [address], [address] , [facility] 6 15:19:03 Cough 55306883 Completed 200212/31/2012 Leandro Zheng DPM [address] [place] [address], , [facility] 6 15:19:04 Extrinsic asthma with asthma attack Completed 200012/31/2012 Leandro Zheng DPM [address] [place] [address], [address] , [facility] 6 15:19:03 Shoulder pain 56435790 Completed 200312/31/2012 Leandro Zheng DPM [address], [place], , [facility] 6 15:19:04 Fever 295617901 Completed 200712/31/2012 Leandro Zheng DPM [address], , [facility] 6 15:19:04 Myopia 55530889 Completed 200408/01/2017 Luanne Lozada NP [address], [place], , [facility] 8 05:53:18 Intrinsic asthma 412483733 Active Leandro Zheng DPM [address], [place], , [facility] 6 15:19:03 Skin sensation disturbanc e 57084242 Completed 200112/31/2012 Leandro Zheng DPM [address], , [facility] 6 15:19:04 Joint stiffness 64541193 Completed 200012/31/2012 Leandro Zheng DPM [address], , [facility] 6 15:19:04 Neck pain 36280149 Completed 200012/31/2012 Leandro Zheng DPM [address], , [facility] 6 15:19:04 Allergic asthma without status asthmaticu s 03754127 Completed 200208/01/2017 Luanne Lozada NP [address], [place], , [facility] 8 05:53:25 Urticaria 814847893 Completed 200312/31/2012 Leandro Zheng DPM [address] [place], [address] , [facility] 6 15:19:04 Atopic dermatitis 49722637 Completed 200102/04/2015 Leandro Zheng DPM [address] [place], [address] , [facility] 6 15:19:03 Common cold 23658864 Completed 200012/31/2012 Leandro Zheng DPM [address] [place], [address] , [facility] 6 15:19:03 Knee pain Completed 200301/21/2013 Leandro Zheng DPM [address] [place], [address] , [facility] 6 15:19:04 On examinatio n - a rash Completed 200012/31/2012 Leandro Zheng DPM [address] [place], [address] , [facility] 6 15:19:04 Sprain of shoulder and upper arm Completed 200012/31/2012 Leandro Zheng DPM [address] [place], [address] , [facility] 6 15:19:04 Allergic rhinitis caused by pollen 42973223 Active 2002 Leandro Zheng DPM [address] [place], [address] , [facility] 6 15:19:03 Exercise-i nduced asthma 45481773 Completed 12/31/2012 Leandro Zheng DPM [address] [place], [address] , [facility] 6 15:19:03 White blood cell disorder 14818603 Completed 200302/04/2015 Leandro Zheng DPM [address] [place], [address] , [facility] 6 15:19:03 Anemia 529383780 Completed 200202/04/2015 Leandro Zheng DPM [address] [place], [address] , [facility] 6 15:19:03 Acute conjunctiv itis 28439374 Completed 200212/31/2012 Leandro Zheng DPM [address] [place], [address] , [facility] 6 15:19:03 Abnormal weight gain 881813466 Completed 200812/31/2012 Leandro Zheng DPM [address] [place], [address] , [facility] 6 15:19:04 Acute upper respirator y infection of multiple sites Completed 200712/31/2012 Leandro Zheng DPM [address] [place], [address] , [facility] 6 15:19:03 Acne 21570958 Completed 200102/04/2015 Leandro Zheng DPM [address] [place], [address] , [facility] 6 15:19:03 Acute bronchitis 28279117 Completed 200312/31/2012 Leandro Zheng DPM [address] [place], [address] , [facility] 6 15:19:03 Primary fibromyalg ia syndrome 28680589 Completed 200102/04/2015 Leandro Zheng DPM [address] [place], [address] , [facility] 6 15:19:04 Asthma 476042757 Completed 200012/31/2012 Leandro Zheng DPM [address] [place], [address] , [facility] 6 15:19:03 Neck sprain 869228837 Completed 200012/31/2012 Leandro Zheng DPM [address] [place], [address] , [facility] 6 15:19:04 Malaise and fatigue 743308680 Completed 200212/31/2012 Leandro Zheng DPM [address] [place], [address] , [facility] 6 15:19:04 Problem Notes None recorded. Procedures Surgical History Date Name Laterality Status Provider Name and Address Organization Details Recorded Time 09/20/19 72787: Therapeutic Exercise completed Larissa Estrada, PT [address] [place], [address], [facility] 09/19/2021 17:28:32 09/20/19 Treatment and Advice completed Larissa Estrada, PT [address] [place], [address], [facility] 09/19/2021 17:28:32 08/30/19 96222: Therapeutic Exercise completed Larissa Estrada, PT [address] [place], [address], [facility] 08/29/2021 17:35:35 08/30/19 Treatment and Advice completed Larissa Estrada, PT [address] [place], [address], [facility] 08/29/2021 18:00:56 08/23/19 88558: Therapeutic Exercise completed Larissa Estrada, PT [address] [place], [address], [facility] 08/22/2021 18:03:21 08/23/19 Treatment and Advice completed Larissa Estrada, PT [address] [place], [address], [facility] 08/22/2021 18:05:32 08/16/19 22 79997: Therapeutic Exercise completed Larissa Estrada, PT [address] [place], [address], [facility] 08/15/2021 19:47:05 08/16/19 Treatment and Advice completed Larissa Estrada, PT [address] [place], [address], [facility] 08/15/2021 19:46:19 08/11/19 Physical Activity Counselling completed Larissa Estrada, PT [address] [place], [address], [facility] 08/10/2021 07:42:47 08/11/19 22 77702: PT Eval Low Complexity completed Larissa Estrada, PT [address] [place], [address], [facility] 08/10/2021 07:42:44 08/11/19 22 Treatment and Advice completed Larissa Estrada, PT [address] [place], [address], [facility] 08/10/2021 08:02:43 06/27/19 22 Asthma Control Test (12 + years old) completed Katelin Chao [facility] 06/26/2021 15:59:49 12/08/19 21 Asthma Control Test (12 + years old) completed Melissa Dunn [facility] 12/07/2020 14:38:53 05/03/19 21 prevention-card iovascular risk reduction counseling completed Melissa Dunn [facility] 05/02/2020 15:19:26 05/03/19 21 prevention-lynda al alcohol misuse screening completed Melissa Dunn [facility] 05/02/2020 15:19:26 04/27/19 20 Trigger Finger Injection RB completed Luydmila Yanes MD [address] [place] [address], [address], [facility] 04/27/2019 15:25:34 09/27/19 19 Generic Procedure Template completed Lyudmila Yanes MD [address] [place] [address], [address], [facility] 09/28/2018 11:36:46 07/11/19 19 Physical Activity Counselling completed Georgina Solares, OT [address] [place], [address], [facility] 07/10/2018 20:39:55 07/11/19 19 88031: OT Eulalio, Moderate Complexity completed Georgina Solares, OT [address] [place], [address], [facility] 07/10/2018 20:39:59 09/28/19 18 81985: Therapeutic Exercise completed Leandro Pike, PT [address] [place], [address], [facility] 09/27/2017 14:40:27 09/28/19 18 Treatment and Advice completed Leandro Pike, PT [address] [place], [address], [facility] 09/27/2017 14:56:47 08/31/19 18 02019: Therapeutic Exercise completed Leadnro Pike, PT [address] [place], [address], [facility] 08/30/2017 10:37:08 08/31/19 18 50743: Ultrasound (1:1) completed Leandro Pike, PT [address] [place], [address], [facility] 08/30/2017 10:37:39 08/31/19 18 Treatment and Advice completed Leandro Pike, PT [address] [place], [address], [facility] 08/30/2017 10:34:51 08/24/19 18 06480: Therapeutic Exercise completed Leandro Pike, PT [address] [place], [address], [facility] 08/23/2017 11:28:22 08/24/19 18 Treatment and Advice completed Leandro Pike, PT [address] [place], [address], [facility] 08/23/2017 11:28:04 08/17/19 18 Physical Activity Counselling completed Leandro Pike, PT [address] [place], [address], [facility] 08/16/2017 16:36:13 08/17/19 18 17304: PT Eval Low Complexity completed Leandro Pike, PT [address] [place], [address], [facility] 08/16/2017 16:36:13 08/14/19 18 Nebulizer Tx completed Eliane Rodgers [facility] 08/13/2017 10:51:42 08/12/19 16 88942: Therapeutic Exercise completed Leandro Pike, PT [address] [place], [address], [facility] 08/12/2015 17:00:08 08/12/19 16 Treatment and Advice completed Leandro Pike, PT [address] [place], [address], [facility] 08/12/2015 17:00:08 07/29/19 16 35836: Therapeutic Exercise completed Leandro Pike, PT [address] [place], [address], [facility] 07/30/2015 07:14:21 07/29/19 16 Treatment and Advice completed Leandro Pike, PT [address] [place], [address], [facility] 07/29/2015 16:58:00 07/26/19 16 Trigger Finger Injection RB completed Lyudmila Yanes MD [address] [place], [address], [facility] 07/26/2015 19:03:32 07/15/19 16 27770: PT Evaluation completed Leandro Pike, PT [address] [place], [address], [facility] 07/15/2015 17:30:08 04/29/19 16 87420: Therapeutic Exercise completed Leandro Pike, PT [address] [place], [address], [facility] 05/01/2015 11:32:49 04/08/19 16 34596: Therapeutic Exercise completed Leandro Pike, PT [address] [place], [address], [facility] 04/08/2015 17:14:33 03/18/19 16 74418: Therapeutic Exercise completed Leandro Pike, PT [address] [place], [address], [facility] 03/18/2015 18:20:59 03/11/19 16 Yelitza - Colonoscopy completed Bhavin Torre MD [address] [place], [address], [facility] 03/11/2015 07:53:39 02/19/20 15 20888: PT Evaluation completed Leandro Pike, PT [address] [place], [address], [facility] 02/18/2015 16:14:24 01/01/20 13 Asthma Control Test (12 + years old) completed Genesis Lyons [facility] 12/31/2012 15:56:03 12/31/19 10 Treatment and Advice completed Leandro Pike, PT [address] [place], [address], [facility] 12/30/2009 13:38:40 12/24/19 10 Treatment and Advice completed Leandro Pike, PT [address] [place], [address], [facility] 12/23/2009 13:36:51 11/29/19 10 Treatment and Advice completed Leandro Pike, PT [address] [place], [address], [facility] 11/28/2009 12:30:58 Imaging Results None recorded. Procedure Notes None recorded. Medical Equipment None Reported. Allergies Allergen ID Allergen Name Allergen Category Reaction Reaction Severity Criticality Documentation Date Start Date Code Code System Note Provider Name and Address Organization Details Recorded Time 18790709 diphenhyd ramine medicatio n edema Not available Not available 05/05/2015 3498 RxNorm RICK Johnson, [facility] 6 16:42:55 373535 adhesive environme nt,medica tion rash mild low 08/22/20212021 Larissa henao, PT [address] [facility] [place], [address], [facility] 2 17:37:01 6504 Benadryl medicatio n Not available Not available Not available 05/24/2008 7 RxNorm swell ing & eyes water ing Not Available [facility] 06:05:20 Medications Name Sig Start Date [...] Available Vitals Date Recorded Body height Body temperature Heart rate Oxygen saturation Oxygen saturation in Arterial blood by Pulse oximetry Systolic blood pressure Diastolic blood pressure Provider Name and Address Organization Details Last Updated DateTime 4 149.23 cm 98.3 [degF] 83 /min 97 % 97 % 96 mm[Hg] 64 mm[Hg] Nafisa Lo [facility] 4 13:42:14 Social History Question Answer Notes LastModified by [...] Consumption? Occasional 1 Iced Mocha A Week [email or web address] Information not available 06/28/2023 How Much Tobacco [...] Or The Highest Degree You Have Received? 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 No Information not available 12/31/2012 Does The Patient Have Difficulty Reading Luxembourgish? No Information not available 12/31/2012 Patient Has Health Care Proxy Signed And In Chart No Hattie Rosenbaum () [email or web address] Information not available 02/21/2018 Marital Status API-251 Informatio n not available 02/07/2022 Mosquito Repellent Used Routinely Yes [email or web address]-251 Information not available 02/07/2022 What Was The Date Of Your Most Recent Tobacco Screening? 01/03/2024 [email or web address] Information not available 01/03/2024 How Many Children [...] Other Forms Of Tobacco Or Nicotine? No [email or web address] Information not available 06/28/2023 Sex: Female Functional [...] influenza, unspecified formulation 3 completed Not Available [facility] 01/17/2011 05:21:07 Influenza, split virus, trivalent, preservative 1 completed Not Available [facility] 03/21/2019 02:31:48 pneumococcal polysaccharide PPV23 1 completed Not Available [facility] 03/21/2019 02:14:31 influenza, unspecified formulation 4 completed Not Available [facility] 01/17/2011 05:21:07 Td(adult) unspecified formulation 3 completed Not Available [facility] 01/17/2011 05:21:07 influenza, unspecified formulation 5 completed Not Available [facility] 01/17/2011 05:21:29 influenza, unspecified formulation 7 completed Not Available [facility] 01/17/2011 05:21:55 influenza, unspecified formulation 8 completed Not Available [facility] 01/17/2011 05:21:55 Influenza, split virus, trivalent, PF 3 completed Not Available [facility] 03/21/2019 02:18:59 Tdap 3 completed Not Available [facility] 03/21/2019 02:34:58 Influenza, split virus, trivalent, preservative 2 completed Not Available [email or web address] 02/07/2022 15:35:28 Influenza, split virus, quadrivalent, PF 8 completed Not Available [facility] 03/21/2019 02:34:54 Influenza, split virus, trivalent, preservative 0 completed Not Available [facility] 03/21/2019 02:37:14 Pneumococcal conjugate PCV 13 0 completed Suad Pineda RN null, [facility] 11/06/2019 11:27:05 Influenza, split virus, quadrivalent, preservative 0 completed Not Available [email or web address] 02/07/2022 15:35:28 Influenza, split virus, quadrivalent, PF 2 completed Ria Keith MD [address] [place] [address], [phone], [facility] 12/03/2021 20:19:22 Td (adult), 2 Lf tetanus toxoid, preservative free, adsorbed 3 completed Ria Keith MD [address] [place] [address], [phone], [facility] 06/24/2022 19:16:30 Influenza, split virus, quadrivalent, PF 3 completed Alanna Brice LPN [facility] 12/16/2022 10:18:58 COVID-19, mRNA, LNP-S, PF, 30 mcg/0.3 mL dose 1 completed Gisela Adams MA [facility] 11/22/2023 12:18:23 COVID-19, mRNA, LNP-S, PF, 30 mcg/0.3 mL dose 1 completed Melissa Dunn MA null, [facility] 12/07/2020 14:33:59 Influenza, split virus, quadrivalent, preservative 1 completed Gisela Adams MA [facility] 11/22/2023 12:18:23 COVID-19, mRNA, LNP-S, bivalent, PF, 30 mcg/0.3 mL dose 2 completed [facility] 12:18:23 zoster recombinant 2 [facility] 12:18:23 zoster recombinant 2 [facility]22[facility]23 12:18:23 COVID-19, mRNA, LNP-S, PF, 30 mcg/0.3 mL dose 1 [facility]/22/2023 12:18:23 COVID-19, mRNA, LNP-S, PF, 30 mcg/0.3 mL dose 1 [facility]22/[facility]23 12:18:23 COVID-19, mRNA, LNP-S, PF, 30 mcg/0.3 mL dose 1 [facility]22/[facility]23 12:18:23 COVID-19, mRNA, LNP-S, PF, 30 mcg/0.3 mL dose, lara-sucrose 2 [facility] 11/22/2023 12:18:23 COVID-19, mRNA, LNP-S, PF, lara-sucrose, 30 mcg/0.3 mL 3 [facility] 11/22/2023 12:18:23 COVID-19, mRNA, LNP-S, PF, 50 mcg/0.5 mL 4 [facility] 11/22/2023 12:18:23 Influenza, split virus, trivalent, preservative 9 [facility]/22/2023 12:18:23 Influenza, split virus, quadrivalent, PF 1 [facility]/22/2023 12:18:23 Influenza, MDCK, trivalent, PF completed RICK Guillory, [facility] 11/22/2023 12:18:23 Past Encounters Encounter ID Performer Location Encounter Start Date Encounter Closed Date Diagnosis/Indication Diagnosis SNOMED-CT Code Diagnosis ICD10 Code [id number] Ria Keith MD , [facility], [address] [place] [address] 11/22/2023 11:57:33 11/25/2023 19:53:19 Asthma 539698899 J45.909 Intrinsic asthma 3616712 08 J45.909 Allergic a sthma without status asthmaticus 81575278 J45.909 [id number] DO LULA VILLA, [facility], [address] [place] [address] 12/03/2023 13:29:05 12/05/2023 12:28:39 Upper respiratory infection 25524712 J06.9 Intrinsic asthma 3801353 08 J45.909 Health Concerns Section Related Observation LastModified by Organization Detai ls LastModified Time None Recorded Concern Status LastModified by Organization Details LastModified Time None Recorded Payers Encounter Date Sequence Insurance Name Policy Number Policy Manzanares Covered Member ID Manzanares Member ID Guarantor Name 12/03/2023 1 [place]: [facility] [id number] [facility] [id number] [facility] Notes Date Note Type Note Provider Name and Address Organization Details Recorded Time 12/03/2023 text/html URI ongoing x 3 weeks Fatigued, cough, fevers. Negative covid test today. Some s.o.b. Got flu and covid shots at the same time 3 weeks agoTook prednisone for ten days, ending SaturdayPrednisone improves sxs but did not resolveStill has no energy, cough, muscle achesSubjective fever last nightTaking Motrin (took before visit at about 10:30am)Using Arnuity and albuterolAlbuterol every two hoursReports wheezingAsthma previously well controlledWas taking honey cough syrup VALENTINO HASSAN DO [address] [place] [address], [phone], [facility] 12/04/2023 10:20:39 OBGyn Episode Ob Episode Information Episode Created Date Number of Fetuses Patient Bloodtype Patient rh Status Prepregnancy Weight lbs Domestic Partner Domestic Partner Phone Father Name 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 Status 02/24/20 CLOSED Fetus Data First Name Last Name Admitted to NICU Weight (g) Sex Living Outcome Pediatric Complications Fetus ID Race Codes Race Delivery Type 7 Problems Problem Notes Problem Name Start Date End Date Resolution Snomed Code Not e Tenosynovitis of fingers 43641 6003 Knee pain 14451753 Anterior knee pain 054705935 Metatarsalgia 39518507 Pronation of foot 63439995 Rheumatoid arthritis 49893253 Mixed hyperlipidemia 12/23/2008 [id number] 3 Exercise-induced asthma 412933 02 Intrinsic asthma 019956974 Asthma 991588390 Allergic asthma without stat us asthmaticus 01/21/2003 [id number] Osiel Calculation OSIEL Calculation Method Initial Osiel [...] Type Weight in lbs Pre/Post Dialysis Refused 132.685781946581 BP Diastolic BP Location Tested BP Systolic BP Type 54 R arm 116 sitting Fetus Heart Rate Present Fetus Movement Comments Flowsheet Date 06/02/2008 Brizuela Score Blood Edema Fundus Height Fundus Units Glucose Ketones Leukocytes Nitrite Labor Signs Protein Cervic Dilation Cervic Effacement Cervic Station Type Weight in lbs Pre/Post Dialysis Refused 126.31283241494 BP Diastolic BP Location Tested BP Systolic [...] Type Weight in lbs Pre/Post Dialysis Refused 134.315220452070 BP Diastolic BP Location Tested BP Systolic [...] Type Weight in lbs Pre/Post Dialysis Refused 136.647356986762 BP Diastolic BP Location Tested BP Systolic BP Type 74 L arm 118 sitting Fetus Heart Rate Present Fetus Movement Comments Flowsheet Date 10/12/2009 Brizuela Score Blood Edema Fundus Height Fundus Units Glucose Ketones Leukocytes Nitrite Labor Signs Protein Cervic Dilation Cervic Effacement Cervic Station Type Weight in lbs Pre/Post Dialysis Refused 135.470098832597 BP Diastolic BP Location Tested BP Systolic [...] Type Weight in lbs Pre/Post Dialysis Refused 139.877610988287 BP Diastolic BP Location Tested BP Systolic BP Type 72 L arm 98 sitting Fetus Heart Rate Present Fetus Movement Comments Flowsheet Date 11/25/2009 Brizuela Score Blood Edema Fundus Height Fundus Units Glucose Ketones Leukocytes Nitrite Labor Signs Protein Cervic Dilation Cervic Effacement Cervic Station Type Weight in lbs Pre/Post Dialysis Refused 140.867703520776 BP Diastolic BP Location Tested BP Systolic [...] Type Weight in lbs Pre/Post Dialysis Refused 138.066401713870 BP Diastolic BP Location Tested BP Systolic BP Type 78 R arm 104 sitting Fetus Heart Rate Present Fetus Movement Comments Flowsheet Date 03/27/2010 Brizuela Score Blood Edema Fundus Height Fundus Units Glucose Ketones Leukocytes Nitrite Labor Signs Protein Cervic Dilation Cervic Effacement Cervic Station Type Weight in lbs Pre/Post Dialysis Refused 142.740549448273 BP Diastolic BP Location Tested BP Systolic [...] Type Weight in lbs Pre/Post Dialysis Refused 139.059914517703 BP Diastolic BP Location Tested BP Systolic BP Type 68 L arm 112 sitting Fetus Heart Rate Present Fetus Movement Comments Flowsheet Date 08/15/2010 Brizuela Score Blood Edema Fundus Height Fundus Units Glucose Ketones Leukocytes Nitrite Labor Signs Protein Cervic Dilation Cervic Effacement Cervic Station Type Weight in lbs Pre/Post Dialysis Refused 137.219763422147 BP Diastolic BP Location Tested BP Systolic BP Type 68 R arm 108 sitting Fetus Heart Rate Present Fetus Movement Comments Flowsheet Date 08/28/2010 Brizuela Score Blood Edema Fundus Height Fundus Units Glucose Ketones Leukocytes Nitrite Labor Signs Protein Cervic Dilation Cervic Effacement Cervic Station Type Weight in lbs Pre/Post Dialysis Refused 133.313209710504 BP Diastolic BP Location Tested BP Systolic [...] Type Weight in lbs Pre/Post Dialysis Refused 133.169325868490 BP Diastolic BP Location Tested BP Systolic BP Type 68 L arm 114 sitting Fetus Heart Rate Present Fetus Movement Comments Flowsheet Date 10/22/2011 Brizuela Score Blood Edema Fundus Height Fundus Units Glucose Ketones Leukocytes Nitrite Labor Signs Protein Cervic Dilation Cervic Effacement Cervic Station Type Weight in lbs Pre/Post Dialysis Refused 134.417106426047 BP Diastolic BP Location Tested BP Systolic [...] Type Weight in lbs Pre/Post Dialysis Refused 131.391719033997 BP Diastolic BP Location Tested BP Systolic [...] Type Weight in lbs Pre/Post Dialysis Refused 128.825208447452 BP Diastolic BP Location Tested BP Systolic BP Type 76 L arm 102 sitting Fetus Heart Rate Present Fetus Movement Comments Flowsheet Date 05/26/2013 Brizuela Score Blood Edema Fundus Height Fundus Units Glucose Ketones Leukocytes Nitrite Labor Signs Protein Cervic Dilation Cervic Effacement Cervic Station Type Weight in lbs Pre/Post Dialysis Refused 129.440602251124 BP Diastolic BP Location Tested BP Systolic BP Type 72 L arm 110 sitting Fetus Heart Rate Present Fetus Movement Comments Flowsheet Date 02/04/2015 Brizuela Score Blood Edema Fundus Height Fundus Units Glucose Ketones Leukocytes Nitrite Labor Signs Protein Cervic Dilation Cervic Effacement Cervic Station Type Weight in lbs Pre/Post Dialysis Refused 140.0916837183 BP Diastolic BP Location Tested BP Systolic [...] Type Weight in lbs Pre/Post Dialysis Refused 140.3782850912 BP Diastolic BP Location Tested BP Systolic [...] Type Weight in lbs Pre/Post Dialysis Refused 139.106917346414 BP Diastolic BP Location Tested BP Systolic [...] Type Weight in lbs Pre/Post Dialysis Refused 140.657656948260 BP Diastolic BP Location Tested BP Systolic BP Type 66 R arm 112 sitting Fetus Heart Rate Present Fetus Movement Comments Flowsheet Date 05/12/2015 Brizuela Score Blood Edema Fundus Height Fundus Units Glucose Ketones Leukocytes Nitrite Labor Signs Protein Cervic Dilation Cervic Effacement Cervic Station Type Weight in lbs Pre/Post Dialysis Refused 140.175266016144 BP Diastolic BP Location Tested BP Systolic [...] Type Weight in lbs Pre/Post Dialysis Refused 140.245845550856 BP Diastolic BP Location Tested BP Systolic BP Type 62 L arm 102 sitting Fetus Heart Rate Present Fetus Movement Comments Flowsheet Date 06/17/2015 Brizuela Score Blood Edema Fundus Height Fundus Units Glucose Ketones Leukocytes Nitrite Labor Signs Protein Cervic Dilation Cervic Effacement Cervic Station Type Weight in lbs Pre/Post Dialysis Refused 139.016028920281 BP Diastolic BP Location Tested BP Systolic BP Type 70 L arm 116 sitting Fetus Heart Rate Present Fetus Movement Comments Flowsheet Date 06/30/2015 Brizuela Score Blood Edema Fundus Height Fundus Units Glucose Ketones Leukocytes Nitrite Labor Signs Protein Cervic Dilation Cervic Effacement Cervic Station Type Weight in lbs Pre/Post Dialysis Refused 141.981298172062 BP Diastolic BP Location Tested BP Systolic [...] Type Weight in lbs Pre/Post Dialysis Refused 141.166605129916 BP Diastolic BP Location Tested BP Systolic [...] Type Weight in lbs Pre/Post Dialysis Refused 140.58733734559 BP Diastolic BP Location Tested BP Systolic [...] Type Weight in lbs Pre/Post Dialysis Refused 141.599367640289 BP Diastolic BP Location Tested BP Systolic BP Type 66 L arm 116 sitting Fetus Heart Rate Present Fetus Movement Comments Flowsheet Date 11/28/2015 Brizuela Score Blood Edema Fundus Height Fundus Units Glucose Ketones Leukocytes Nitrite Labor Signs Protein Cervic Dilation Cervic Effacement Cervic Station Type Weight in lbs Pre/Post Dialysis Refused 141.930612999309 BP Diastolic BP Location Tested BP Systolic BP Type 64 L arm 118 sitting Fetus Heart Rate Present Fetus Movement Comments Flowsheet Date 02/13/2016 Brizuela Score Blood Edema Fundus Height Fundus Units Glucose Ketones Leukocytes Nitrite Labor Signs Protein Cervic Dilation Cervic Effacement Cervic Station Type Weight in lbs Pre/Post Dialysis Refused 141.784731465054 BP Diastolic BP Location Tested BP Systolic BP Type 68 L arm 104 sitting Fetus Heart Rate Present Fetus Movement Comments Flowsheet Date 02/28/2016 Brizuela Score Blood Edema Fundus Height Fundus Units Glucose Ketones Leukocytes Nitrite Labor Signs Protein Cervic Dilation Cervic Effacement Cervic Station Type Weight in lbs Pre/Post Dialysis Refused 137.462174865889 BP Diastolic BP Location Tested BP Systolic BP Type 70 L arm 124 sitting Fetus Heart Rate Present Fetus Movement Comments Flowsheet Date 05/25/2016 Brizuela Score Blood Edema Fundus Height Fundus Units Glucose Ketones Leukocytes Nitrite Labor Signs Protein Cervic Dilation Cervic Effacement Cervic Station Type Weight in lbs Pre/Post Dialysis Refused 139.181309906199 BP Diastolic BP Location Tested BP Systolic BP Type 64 R arm 116 sitting Fetus Heart Rate Present Fetus Movement Comments Flowsheet Date 08/24/2016 Brizuela Score Blood Edema Fundus Height Fundus Units Glucose Ketones Leukocytes Nitrite Labor Signs Protein Cervic Dilation Cervic Effacement Cervic Station Type Weight in lbs Pre/Post Dialysis Refused 135.312313308819 BP Diastolic BP Location Tested BP Systolic BP Type 66 R arm 122 sitting Fetus Heart Rate Present Fetus Movement Comments Flowsheet Date 09/20/2016 Brizuela Score Blood Edema Fundus Height Fundus Units Glucose Ketones Leukocytes Nitrite Labor Signs Protein Cervic Dilation Cervic Effacement Cervic Station Type Weight in lbs Pre/Post Dialysis Refused 134.25174456644 BP Diastolic BP Location Tested BP Systolic BP Type 60 L arm 112 sitting Fetus Heart Rate Present Fetus Movement Comments Flowsheet Date 11/16/2016 Brizuela Score Blood Edema Fundus Height Fundus Units Glucose Ketones Leukocytes Nitrite Labor Signs Protein Cervic Dilation Cervic Effacement Cervic Station Type Weight in lbs Pre/Post Dialysis Refused 140.100663085738 BP Diastolic BP Location Tested BP Systolic BP Type 68 L arm 114 sitting Fetus Heart Rate Present Fetus Movement Comments Flowsheet Date 03/15/2017 Brizuela Score Blood Edema Fundus Height Fundus Units Glucose Ketones Leukocytes Nitrite Labor Signs Protein Cervic Dilation Cervic Effacement Cervic Station Type Weight in lbs Pre/Post Dialysis Refused 142.658610011844 BP Diastolic BP Location Tested BP Systolic BP Type 68 104 Fetus Heart Rate Present Fetus Movement Comments Flowsheet Date 06/27/2017 Brizuela Score Blood Edema Fundus Height Fundus Units Glucose Ketones Leukocytes Nitrite Labor Signs Protein Cervic Dilation Cervic Effacement Cervic Station Type Weight in lbs Pre/Post Dialysis Refused 136.872720297892 BP Diastolic BP Location Tested BP Systolic BP Type 80 L arm 120 sitting Fetus Heart Rate Present Fetus Movement Comments Flowsheet Date 07/31/2017 Brizuela Score Blood Edema Fundus Height Fundus Units Glucose Ketones Leukocytes Nitrite Labor Signs Protein Cervic Dilation Cervic Effacement Cervic Station Type Weight in lbs Pre/Post Dialysis Refused 138.205258060372 BP Diastolic BP Location Tested BP Systolic BP Type 62 R arm 104 sitting Fetus Heart Rate Present Fetus Movement Comments Flowsheet Date 08/13/2017 Brizuela Score Blood Edema Fundus Height Fundus Units Glucose Ketones Leukocytes Nitrite Labor Signs Protein Cervic Dilation Cervic Effacement Cervic Station Type Weight in lbs Pre/Post Dialysis Refused 136.998206245701 BP Diastolic BP Location Tested BP Systolic [...] Type Weight in lbs Pre/Post Dialysis Refused 136.557830101037 BP Diastolic BP Location Tested BP Systolic [...] Type Weight in lbs Pre/Post Dialysis Refused 139.50518186384 BP Diastolic BP Location Tested BP Systolic BP Type 71 R arm 112 sitting Fetus Heart Rate Present Fetus Movement Comments Flowsheet Date 03/14/2018 Brizuela Score Blood Edema Fundus Height Fundus Units Glucose Ketones Leukocytes Nitrite Labor Signs Protein Cervic Dilation Cervic Effacement Cervic Station Type Weight in lbs Pre/Post Dialysis Refused Weight 142.236111154555 BP Diastolic BP Location Tested BP Systolic BP Type 68 L arm 100 sitting Fetus Heart Rate Present Fetus Movement Comments Flowsheet Date 06/30/2018 Brizuela Score Blood Edema Fundus Height Fundus Units Glucose Ketones Leukocytes Nitrite Labor Signs Protein Cervic Dilation Cervic Effacement Cervic Station Type Weight in lbs Pre/Post Dialysis Refused Weight 139.433006190345 BP Diastolic BP Location Tested BP Systolic [...] Weight in lbs Pre/Post Dialysis Refused Weight 140.114848819951 BP Diastolic BP Location Tested BP Systolic [...] Weight in lbs Pre/Post Dialysis Refused Weight 137.805671801409 BP Diastolic BP Location Tested BP Systolic [...] Weight in lbs Pre/Post Dialysis Refused Stated 140.274810865169 BP Diastolic BP Location Tested BP Systolic [...] in lbs Pre/Post Dialysis Refused With clothes 140.439865857272 BP Diastolic BP Location Tested BP Systolic [...] Weight in lbs Pre/Post Dialysis Refused Weight 139.151403024108 BP Diastolic BP Location Tested BP Systolic BP Type 72 L arm 110 sitting Fetus Heart Rate Present Fetus Movement Comments Flowsheet Date 12/07/2020 Brizuela Score Blood Edema Fundus Height Fundus Units Glucose Ketones Leukocytes Nitrite Labor Signs Protein Cervic Dilation Cervic Effacement Cervic Station Type Weight in lbs Pre/Post Dialysis Refused With clothes 139.574540563947 BP Diastolic BP Location Tested BP Systolic [...] Weight in lbs Pre/Post Dialysis Refused Weight 140.775592155885 BP Diastolic BP Location Tested BP Systolic BP Type 58 102 Fetus Heart Rate Present Fetus Movement Comments Flowsheet Date 07/20/2021 Brizuela Score Blood Edema Fundus Height Fundus Units Glucose Ketones Leukocytes Nitrite Labor Signs Protein Cervic Dilation Cervic Effacement Cervic Station Type Weight in lbs Pre/Post Dialysis Refused With clothes 141.999865461124 BP Diastolic BP Location Tested BP Systolic [...] Weight in lbs Pre/Post Dialysis Refused Weight 137.693733949151 BP Diastolic BP Location Tested BP Systolic BP Type 60 R arm 102 sitting Fetus Heart Rate Present Fetus Movement Comments Flowsheet Date 02/07/2022 Brizuela Score Blood Edema Fundus Height Fundus Units Glucose Ketones Leukocytes Nitrite Labor Signs Protein Cervic Dilation Cervic Effacement Cervic Station Type Weight in lbs Pre/Post Dialysis Refused Weight 140.093812401380 BP Diastolic BP Location Tested BP Systolic BP Type 62 L arm 100 sitting Fetus Heart Rate Present Fetus Movement Comments Flowsheet Date 06/22/2022 Brizuela Score Blood Edema Fundus Height Fundus Units Glucose Ketones Leukocytes Nitrite Labor Signs Protein Cervic Dilation Cervic Effacement Cervic Station Type Weight in lbs Pre/Post Dialysis Refused With clothes 136.698943862510 BP Diastolic BP Location Tested BP Systolic [...] in lbs Pre/Post Dialysis Refused With clothes 139.217631659227 BP Diastolic BP Location Tested BP Systolic BP Type 60 R arm 90 sitting Fetus Heart Rate Present Fetus Movement Comments Flowsheet Date 03/18/2023 Brizuela Score Blood Edema Fundus Height Fundus Units Glucose Ketones Leukocytes Nitrite Labor Signs Protein Cervic Dilation Cervic Effacement Cervic Station Type Weight in lbs Pre/Post Dialysis Refused With clothes 139.210218566838 BP Diastolic BP Location Tested BP Systolic BP Type 62 R arm 92 sitting Fetus Heart Rate Present Fetus Movement Comments Flowsheet Date 03/29/2023 Brizuela Score Blood Edema Fundus Height Fundus Units Glucose Ketones Leukocytes Nitrite Labor Signs Protein Cervic Dilation Cervic Effacement Cervic Station Type Weight in lbs Pre/Post Dialysis Refused With clothes 139.419505882082 BP Diastolic BP Location Tested BP Systolic [...] in lbs Pre/Post Dialysis Refused With clothes 138.756783851056 BP Diastolic BP Location Tested BP Systolic [...] in lbs Pre/Post Dialysis Refused With clothes 138.604803478718 BP Diastolic BP Location Tested BP Systolic [...]
[2024-02-24 15:47] VITALS: BP 110/62; PULSE 74; O2SAT 98; BMI 28.0
--- NOTE | 2024-02-24 15:47 | MHC.OFFVIS ---
Vital Signs 02/24/24 15:47 Height 4 ft 10 in Weight 134 lb BMI 28.0 BP 110/62 Blood Pressure Location Lt brachial Position Sitting Pulse 74 Pulse Source Pulse Oximeter Pulse Oximetry (%) 98 Oxygen Delivery Method Room Air Intake Visit Reasons: RA Intake Note: Patient last seen by Doctor Jose Luis Brown on 08/26/23. Patient presents for RA follow up. Allergies diphenhydramine [From Benadryl] Allergy (Intermediate, Verified 02/24/24 15:49) Swelling adhesive tape Allergy (Mild, Verified 02/24/24 15:49) Rash Medication List - Last Reconciled 02/24/24 by Jose Luis Brown MD 5-hydroxytryptophan (5-HTP) (5-HTP) 100 mg PO DAILY apple cider vinegar mg PO calcium carbonate-vitamin D3 600 mg-10 mcg (400 unit) (Calcium 600 + D(3)) 1 tab PO BID digestive enzymes 1 cap PO DAILY fluticasone propionate 110 mcg/actuation (Flovent HFA) 2 puffs inhalation BID PRN folic acid 3 mg (3 x 1 mg) PO DAILY L.parac,rhamn-B.animalis-vit C 11 billion cell -15 mg (Daily Probiotic (4 Strains)) caps PO magnesium 250 mg PO DAILY methotrexate sodium 7.5 mg (3 x 2.5 mg) PO QWEEK multivitamin 1 tab PO DAILY turmeric root extract 500 mg PO BID HPI Comments Details: 58-year-old female with RA returns for follow-up. Doing well overall with no joint pain or swelling. She has no complaints today. Compliant with methotrexate 3 tabs once weekly and folic acid 3 mg daily. She mentions that she received both COVID and flu vaccine in November, soon after she started to have flu-like symptoms, she was prescribed prednisone by her PCP, it did not help much then she started having a cough, she was prescribed cough syrup, it did not help her much. She was told that there may have been an interaction with these medications and her methotrexate, she was then prescribed antibiotics. Symptoms eventually resolved after a few weeks. Initial history : This is a 56-year-old female with a past medical history of rheumatoid arthritis presents for evaluation of RA. Her previous blade boner left the practice. Patient stated she started having bilateral feet swelling about 3 years ago, then it progressed to involve her hands wrists and fingers. She was evaluated by Dr. Yanes and started on methotrexate 7 tabs weekly with significant improvement. After doing well for some time patient took herself off methotrexate however she would have recurrent pain swelling and stiffness so she would take Motrin daily. She was re-evaluated by Dr. Vasquez who advised patient to restart her methotrexate. Patient was found to have some transaminitis and the methotrexate dose was tapered down. Currently patient is taking methotrexate 3 tabs weekly with no recurrence of her inflammatory arthritis. Today patient is doing well overall with no complaints [facility] Medical History Rheumatoid arthritis Intrinsic asthma Allergic rhinitis Mixed hyperlipidemia Uterine leiomyoma Surgical History No history of previous surgery Family History Mother Hypertension Father Medical history unknown Social History Household Members: Spouse Household Members Other:: Mother Alcohol intake: current Alcohol intake frequency: does not drink Patient Tobacco Use Status: Never used Tobacco Current occupational status: employed Current occupation: [employer] Review of Systems [facility] [place] no additional complaints, Denies arthralgias and Denies stiffness Physical Exam Vital Signs: Last Vital Signs Pulse 74 02/24/24 15:47 BP 110/62 02/24/24 15:47 Pulse Ox 98 02/24/24 15:47 Oxygen Delivery Method Room Air 02/24/24 15:47 BMI result Body Mass Index 28.0 Const General: cooperative, healthy appearing, comfortable and no acute distress Nutritional Appearance: overweight Orientation/consciousness: patient oriented x3 Limitations: no limitations HEENT Head: Yes normocephalic and Yes atraumatic Mouth: moist mucous membranes Resp Effort & Inspection: normal respiratory effort and able to speak in complete sentences Auscultation: clear to auscultation bilaterally Cardio Rate: regular rate Rhythm: regular rhythm Heart sounds: S1 normal heart sound present and S2 normal heart sound present Neuro General: patient oriented x3 Extrem Other: no active synovitis some osteoarthritic changes of both hands Normal nailfold capillaroscopy Assessment & Plan Assessment & Plan (1) Rheumatoid arthritis: Comment: +RF+CCP dx 2016 MTX effective Code(s): M06.9 - Rheumatoid arthritis, unspecified Category: Medical Qualifiers: Rheumatoid arthritis location: multiple sites Rheumatoid factor presence: unspecified presence Qualified Code(s): M06.9 - Rheumatoid arthritis, unspecified Plan: This is a 58-year-old female with seropositive rheumatoid who returns for follow-up. Her RA was diagnosed around 2015 with bilateral foot and hands swelling. Symptoms were controlled with methotrexate. Patient self discontinued methotrexate and took Motrin daily for some time. She was restarted on methotrexate by Dr. Vasquez and MTX dose was lowered as patient had transaminitis without RA exacerbation. Patient is currently on methotrexate 7.5 mg once weekly. No synovitis on exam Continue methotrexate 7.5 mg once weekly & folic acid 3 mg daily Labs before next visit in 6 months (2) Osteopenia: Code(s): M85.80 - Other specified disorders of bone density and structure, unspecified site Category: Medical Qualifiers: Osteopenia location: unspecified Qualified Code(s): M85.80 - Other specified disorders of bone density and structure, unspecified site Plan: DEXA [id number] showed osteopenia with a low FRAX score. Continue calcium and vitamin-D supplementation. Check vitamin-D level before next visit. 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
== END 2024-02-24 16:13 | disposition home or self-care (01) ==
PROVIDERS: PCP Family Medicine; Visit Provider Student in an Organized Health Care Education/Training Program
DX: M06.9 Rheumatoid arthritis, unspecified (principal); M85.80 Other specified disorders of bone density and structure, unspecified site; Z79.631 Long term (current) use of antimetabolite agent
CPT/HCPCS: 99214

== ENCOUNTER 2024-09-23 14:03 | Outpatient (AMB) | payer BC, SELFPAY ==
--- NOTE | 2024-09-23 14:05 | A.OFFVIS_ITS ---
Vital Signs 09/23/24 14:09 Height 4 ft 10 in Weight 134 lb BMI 28.0 BP 110/72 Blood Pressure Location Lt brachial Position Sitting Pulse 66 Pulse Source Pulse Oximeter Pulse Oximetry (%) 98 Oxygen Delivery Method Room Air Intake Visit Reasons: RA Intake Note: Patient presents for follow up on RA and lab review. Allergies diphenhydramine (From Benadryl) Allergy (Intermediate, Verified 02/24/24 15:49) Swelling adhesive tape Allergy (Mild, Verified 02/24/24 15:49) Rash Medication List - Last Reconciled 09/23/24 by Rama Rodgers MD 5-hydroxytryptophan (5-HTP) (5-HTP) 100 mg PO DAILY apple cider vinegar mg PO calcium carbonate-vitamin D3 600 mg-10 mcg (400 unit) (Calcium 600 + D(3)) 1 tab PO BID digestive enzymes 1 cap PO DAILY fluticasone propionate 110 mcg/actuation (Flovent HFA) 2 puffs inhalation BID PRN folic acid 3 mg (3 x 1 mg) PO DAILY L.parac,rhamn-B.animalis-vit C 11 billion cell -15 mg (Daily Probiotic (4 Strains)) caps PO magnesium 250 mg PO DAILY methotrexate sodium 7.5 mg (3 x 2.5 mg) PO QWEEK multivitamin 1 tab PO DAILY turmeric root extract 500 mg PO BID HPI Comments Details: Patient is a 59-year-old female with HLD, rheumatoid arthritis and osteopenia here today for follow up Interval History: Patient last seen 02/24/[address] Brown - Doing well with no joint pain or swelling - Mtx 3 tabs weekly and folic acid Today, - No complaints - Joints doing well Rheumatologic History: +RF+CCP dx 2015 MTX effective Patient self discontinued methotrexate and took Motrin daily for some time. She was restarted on methotrexate by Dr. Vasquez and MTX dose was lowered as patient had transaminitis without RA exacerbation Initial history : This is a 56-year-old female with a past medical history of rheumatoid arthritis presents for evaluation of RA. 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 Patient stated she started having bilateral feet swelling about 3 years ago, then it progressed to involve her hands wrists and fingers. She was evaluated by Dr. Yanes and started on methotrexate 7 tabs weekly with significant improvement. After doing well for some time patient took herself off methotrexate however she would have recurrent pain swelling and stiffness so she would take Motrin daily. She was re-evaluated by Dr. Vasquez who advised patient to restart her methotrexate. Patient was found to have some transaminitis and the methotrexate dose was tapered down. Currently patient is taking methotrexate 3 tabs weekly with no recurrence of her inflammatory arthritis. Today patient is doing well overall with no complaints Current Rheumatology Medication(s): Methotrexate 7.5mg weekly PO Folic acid 1 mg daily PFSH Medical History Rheumatoid arthritis Intrinsic asthma Allergic rhinitis Mixed hyperlipidemia Uterine leiomyoma Surgical History No history of previous surgery Family History Mother Hypertension Father Medical history unknown Social History Household Members: Spouse Household Members Other:: Mother Alcohol intake: current Alcohol intake frequency: does not drink Patient Tobacco Use Status: Never used Tobacco Current occupational status: employed Current occupation: [employer] Review of Systems Const Details: Review of Systems Constitutional: Denies fever, chills, weight loss ENT: Denies vision changes, eye pain or eye redness, dental caries, dry mouth GI: Denies nausea, vomiting, diarrhea, abdominal pain, change in BM Pulm: Denies SOB, [place], hemoptysis, wheezing Cards: Denies chest pain, palpitations Skin: Denies Raynaud's, rash, nail changes, photosensitivity, CAFETERIA DIRECTOR: Denies headaches, weakness, paresthesias, recurrent falls MSK: as per HPI All other systems reviewed and are unremarkable except noted above Physical Exam Exam Exam: Vital signs reviewed Physical Examination CONSTITUITIONAL Patient alert and cooperative. Well appearing and in no apparent painful distress MSK Hands * Right Hand: Able to make a fist. No swelling or tenderness to palpation of these joints. No deformities noted. * Left Hand: Able to make a fist. No swelling or tenderness to palpation of these joints. No deformities noted. Wrists * Right Wrist: Full ROM. 70 degrees of wrist flexion, 80 degrees of wrist extension. No swelling or TTP * Left Wrist: Full ROM. 70 degrees of wrist flexion, 80 degrees of wrist extension. No swelling or TTP Elbows * Right Elbow: Full ROM. No swelling or TTP. No TTP of the medial and lateral epicondyles * Left Elbow: Full ROM. No swelling or TTP. No TTP of the medial and lateral epicondyles Shoulders * Right shoulder: Full ROM. No swelling noted. No TTP of the AC joint, subacromial bursa or posterior shoulder * Left shoulder: Full ROM. No swelling noted. No TTP of the AC joint, subacromial bursa or posterior shoulder Knees * Right knee: Full ROM. No swelling noted. No TTP of the knee joint lie or pes anserine bursa * Left knee: Full ROM. No swelling noted. No TTP of the knee joint lie or pes anserine bursa. Ankles * Right ankle: Good ankle dorsiflexion and plantar flexion. No swelling. No TTP of the ankle joint * Left ankle: Good ankle dorsiflexion and plantar flexion. No swelling. No TTP of the ankle joint Feet * Right foot: Negative squeeze test * Left foot: Negative squeeze test Tender points? * No tenderness to palpation of the bilateral trapezius, supraspinatus, anterior costochondral junctions, bilateral suboccipital muscle insertions SKIN No rashes Vital Signs: Last Vital Signs Pulse 66 09/23/24 14:09 BP 110/72 09/23/24 14:09 Pulse Ox 98 09/23/24 14:09 Oxygen Delivery Method Room Air 09/23/24 14:09 BMI result Body Mass Index 28.0 Results Reviewed Results Reviewed: 09/07/24 VMG WBC 3.71 Hb 14.0 Plt 209 BUN 12 Cr 0.8 eGFR >60 AST 26 ALT 40 ESR 2.0 CRP 1.3 Assessment & Plan Assessment & Plan (1) Rheumatoid arthritis: Comment: +RF+CCP dx 2016 MTX effective Code(s): M06.9 - Rheumatoid arthritis, unspecified Category: Medical Qualifiers: Rheumatoid arthritis location: multiple sites Rheumatoid factor presence: unspecified presence Qualified Code(s): M06.9 - Rheumatoid arthritis, unspecified Plan: #Seropositive RA Patient is a 59-year-old female with seropositive rheumatoid arthritis here today for follow up. Currently in remission on methotrexate monotherapy Plan - Methotrexate 7.5mg PO weekly - Folic acid 3mg daily - RTC 6 months - Labs before visit: CBC, CMP, ESR, CRP (2) Osteopenia: Code(s): M85.80 - Other specified disorders of bone density and structure, unspecified site Category: Medical Qualifiers: Osteopenia location: unspecified Qualified Code(s): M85.80 - Other specified disorders of bone density and structure, unspecified site Plan: #Osteopenia DEXA [id number] showed osteopenia with a low FRAX score. Continue calcium and vitamin-D supplementation. 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 Limit alcohol and avoid Bactrim ? Monitoring: CBC, BMP, LFTs every 3-4 months and hepatitis serologies as needed Plan I spent 20 minutes reviewing the record and labs, taking a history, examining the patient, discussing the treatment plan, ordering diagnostic work up and documenting in the medical record Medications: Refilled calcium carbonate-vitamin D3 600 mg-10 mcg (400 unit) (Calcium 600 + D(3)) 1 tab PO BID 180 tabs 1RF methotrexate sodium 7.5 mg (3 x 2.5 mg) PO QWEEK 36 tabs 1RF M06.9 - Rheumatoid arthritis, unspecified folic acid 3 mg (3 x 1 mg) PO DAILY 270 tabs 1RF Coding Level of Care Code Est Pt Level 3 (20840) Complex EM visit Add On G2211 Diagnoses Rheumatoid arthritis involving multiple sites, unspecified whether rheumatoid factor present M06.9 Rheumatoid arthritis location: multiple sites Rheumatoid factor presence: unspecified presence Osteopenia, unspecified location M85.80 Osteopenia location: unspecified 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
[2024-09-23 14:09] VITALS: BP 110/72; PULSE 66; O2SAT 98; BMI 28.0
--- OUTSIDE RECORDS SUMMARY | 2024-09-23 14:47 | XMS_ITS | Clinical Summary ---
Author Organization [facility] Address [address] [place] [phone] Phone Care Team Providers Care Cheese Tester Name Role Phone Khang Keith MD Primary Care Provider [phone] Allergies Active Allergy Reactions Criticality Noted Date Comments Diphenhydramine Hcl Swelling 03/18/2017 Medications apple cider vinegar 500 mg Tab Active biotin (CYTO B7) 5 mg/mL Liqd oral suspension Active folic acid (FOLVITE) 1 MG tablet 1 tablet Active turmeric-turmer ic root extract 450-50 mg Cap Active multivitamin-Ca -iron-minerals (ONE DAILY WOMEN'S) 27-0.4 mg Tab Active VITAMIN K2 ORAL Take by mouth. Active Medication-Free TextIndications :Black Cumin oil, Collagen,Magnes ium 500 mg, Gotu Tomás, Essential Enzymes, Hemp oil and raw Zinc Indications: Black Cumin oil, Collagen,Magnes ium 500 mg, Gotu Tomás, Essential Enzymes, Hemp oil and raw Zinc Active albuterol 90 mcg/actuation inhaler 1 Active FLOVENT HFA 110 mcg/actuation inhaler 1 Active methotrexate 2.5 MG Oral tablet 1 Active tamsulosin (FLOMAX) 0.4 mg Cap 1 Active calcium carb/vit D3/minerals (CALCIUM-VITAMI N D ORAL) Take by mouth. Activ e MAGNESIUM ORAL Take 500 mg by mouth. Active prochlorperazin e (COMPAZINE) 10 MG tablet Active fluticasone furoate 100 mcg/actuation DsDv Inhale 2 puffs every day by inhalation route for 30 days. Active Active Problems Problem Noted Date Diagnosed Date Hyperlipidemia 05/29/2024 Asthma 05/29/2024 Headache 05/29/2024 Postmenopausal bleeding 05/04/2024 Thickened endometrium 05/04/2024 Overview (05/04/2024): 8 mm endometrium on outside US Assessment & Plan (05/04/2024 8:14 AM EST): After discussion of pros and cons, prefers to have endometrial sampling under sedation in OR rather than office sampling- Surgical risks infection, bleeding, pain, organ injury, recovery all discussed in detail Family History Medical History Relation Comments Hypertension Mother Breast cancer Neg Hx Colon cancer Neg Hx Ovarian cancer Neg Hx Uterine cancer Neg Hx Relation Status Comments Father Mother Alive Social History Tobacco Use Types Packs/Day Years Used Date Smoking Tobacco: Never Smokeless Tobacco: Never Alcohol Use Standard Drinks/Week Comments No 0 (1 standard drink = 0.6 oz pur e alcohol) Education Answer Date Recorded Are you interested in more education? Not on bruno e 06/29/2022 Are you concerned about learning? Not on file 06/29/2022 No 06/29/2022 No 06/29/2022 Digital Access Answer Date Recorded No 07/28/2022 No 07/28/2022 Reliable internet access at home? Not on file 07/28/2022 Device with a working camera? Not on file Intimate Partner Violence Answer Date R ecorded Are you denied basic needs s uch as food, clothing, or medical care? No 06/01/2024 In the past 12 months have y ou been in a relationship with a person who hurts, threatens, or tries to control you? No 06/01/2024 Are you denied basic needs s uch as food, clothing, or medical care? No 06/01/2024 In the past 12 months have y ou been in a relationship with a person who hurts, threatens, or tries to control you? No 06/01/2024 Comments No Sex and Gender Information Value Date Recorded Sex Assigned at Male 05/07/2024 10:37 AM EST Legal Sex Female 9:41 PM EDT Gender Identity Female 05/07/2024 10:37 AM EST Sexual Orientation Choose not to disclose 2024 10:37 AM EST Occupation Industry Job Start Date Job End Date working full-time Not on file Not on file Not on bruno e Last Filed Vital Signs Vital Sign Reading Time Taken Comments Blood Pressure 109/67 06/01/2024 5:18 PM EDT Pulse 67 06/01/2024 5:18 PM EDT Temperature 36.5 C (97.7 F) 06/01/2024 5:18 PM EDT Respiratory Rate 12 06/01/2024 5:18 PM EDT Oxygen Saturation 100% 06/01/2024 5:18 PM EDT Inhaled Oxygen Concentration - - Weight 61.7 kg (136 lb) 06/01/2024 12:05 PM EDT Height 149.9 cm (4' 11 ) 06/01/2024 12:05 PM EDT Body Mass Index 27.47 06/01/2024 12:05 PM EDT Plan of Treatment Health Maintenance Due Date Last Done Comments DEPRESSION SCREENING 1976 HEPATITIS C SCREENING 1982 HIV ONE-TIME SCREENING (18-65 YEARS) 1982 HEPATITIS A VACCINES (1 of 2 - Risk 2-dose series) 08/08/1983 SCREENING FOR DIABETES 08/08/1999 MAMMOGRAM 06/03/2009 06/04/2007, 04/13/2006 COLOGUARD 2009 COLONOSCOPY 2009 COLORECTAL CANCER SCREENING 2009 FIT TEST 2009 FOBT 2009 SIGMOIDOSCOPY 2009 VIRTUAL COLONOSCOPY 2009 LIPID PANEL 12/15/2013 12/15/2008, 04/15/2002 PNEUMOCOCCAL VACCINES (50+ years) (3 of 3 - PPSV23, PCV20 or PCV21) 01/01/2020 11/06/2019, 11/10/2010 COVID-19 VACCINE (9 - Pfizer risk 2023- season) 2024 11/16/2023, 02/02/2023, 11/23/2021, Additional history exists RSV VACCINE (1 - Risk 60-74 years 1-dose series) 2024 PAP SMEAR 07/21/2025 07/21/2020, 02/21/2016 Adult Td,Tdap Booster 06/22/2032 06/22/2022 , 12/31/2012, 03/24/2002 ZOSTER VACCINES Completed 05/27/2021, 03/24/2021 SMOKING STATUS SCREENING (Once After 26 Yrs) Completed 06/01/2024 HIB VACCINES Aged Out No longer eligi ble based on patient's age to complete this topic MENINGOCOCCAL VACCINES (ACWY) Aged Out No longer eligible based on patient's age to complete this topic MENINGOCOCCAL VACCINES (B) Aged Out N o longer eligible based on patient's age to complete this topic Medical Devices Not on file Procedures Procedure Name Priority Date/Time Associated Diagnosis Comments PAP TEST Routine 07/21/2020 12:00 AM EDT from Last 3 Months or Most Recently Relevant to Health Maintenance Results * Pap Smear (07/21/2020 12:00 AM EDT) 07/21/2020 07/22/2020 8:3 3 AM EDT Narrative SEE NARRATIVE - 07/28/2020 3:48 PM EDT [address] [address] Pattern Weaver: Nae Renteria MD HALL WORKER Cytology Report FINAL DIAGNOSIS A. PAP SMEAR (SUREPATH) CE: SPECIMEN ADEQUACY: Satisfactory for evaluation; transformation zone present. INTERPRETATION: NEGATIVE FOR INTRAEPITHELIAL LESION OR MALIGNANCY. Electronically Signed Out By: DESHAWN Flores(ASCP) The Pap test is a screening test primarily for squamous cancers and precursors and has associated false-negative and false-positive results. New technologies such as liquid-based preparations may decrease but will not eliminate all false-negative results. Regular sampling and follow-up of unexplained clinical signs and symptoms are recommended to minimize false negative results. PROCEDURES/ADDENDA HPV Testing (Requested) Ordered Date: 07/22/2020 A. PAP SMEAR (SUREPATH) CE: Human Papilloma Virus Test Negative for high-risk human papillomavirus types 16, 18, 45 and the Other high risk probe set (Includes 31, 33, 35, 39, 51, 52, 56, 58, 59, 66, 68) by Mark Chewse Onclarity HR-HPV analysis. Clinical correlation is advised. This HPV test was performed at [facility], [address] [place] [address]. This test has been FDA approved for SurePath cervical cytology specimens. The accuracy and precision of this test for all other specimen sources has been verified in the Cytopathology Laboratory of the [facility] and has not been cleared or approved by the U.S. Food and Drug Administration. Clinical correlation is advised. CLINICAL HISTORY Date of Last Menstrual Period: Not Provided Menstrual History: Post Menopausal Other Clinical Conditions: Screening Pap SPECIMEN SOURCE A: PAP SMEAR (SUREPATH) CE Patient Name: FELISHA ROSENBAUM : 1965 (Age: 54) Sex: F Institution: [facility] Location: [facility] Date of Collection: 07/21/2020 Date of Reported: 07/28/2020 15:48 Results to: Augusta Hernandez MD Augusta Hernandez MD CYTOLOGY ORDERABLES Final Res ult SEE NARRATIVE from Last 3 Months or Most Recently Relevant to Health Maintenance Insurance [facility] [address] [facility] [place] [address] [place] [address] [place] [address] [place] [address] [place] [address] Advance Directives For more information, please contact: [phone] (9AM - 5PM [facility], Saturday-Saturday) Documents on File Type Date Recorded 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 It is not the complete legal health record.[facility]
--- OUTSIDE RECORDS SUMMARY | 2024-09-23 14:48 | XMS_ITS | Data Portability ---
Author Organization [facility], FORMERLY [facility] Address [address] [place] [address] Care Team Providers Care Classification Analyst Name Role Phone CARON LEON Whiskey Regauger LYUDMILA BRADLEY Wet Plant Operator JOSHUA NARAYAN Activities Aide LOUISE HARP Sports Medicine RIA KEITH Primary Care Provider [phone] Assessment Encounter Date Assessment Date Assessment LastModified by Organization Details LastModified Time 12/19/2023 12/19/2023 General Health Maintenance Recent administration of COVID-19 and flu vaccines. -Advise to space out vaccines in the future due to immunosuppressive medications. [email or web address] Not available 12/20/2023 09:15:55 01/03/2024 01/03/2024 1. Hyperlipidemi a. Her cholesterol levels are elevated, with an [...] Organization Details Last Modified Time Details Appointments Mammog carlos, Screen ing 2024 02:30P M [facility] Access Manager Not available Not available Not available Medica l Manage ment 15 2024 01:30P M Ria Keith MD Not available Not available Not available Billtn ss Visit 30 2025 11:45A M Ria Keith MD Not available Not available Not available Lab lipid panel, serum 2024 025 [facility], [address] [place] [address], [id number], 09/08/2024 11:40:40 CBC 2024 025 [facility], [address] [place] [address], [address], 09/07/2024 10:38:58 C-reac tive protei n, quanti tative , serum or plasma 2024 025 [facility], [address] [place] [address], [id number], 09/08/2024 11:40:41 CMP, serum or plasma 2024 025 [facility], [address] [place] [address], [address], 09/08/2024 11:40:39 ESR (eryth rocyte sedime ntatio n rate), blood 2024 025 [facility], [address] [place] [address], [address], 09/07/2024 11:35:10 vitami n B12, serum 2024 025 [facility], [address] [place] [address], [address], 09/08/2024 14:07:19 cultur e, urine 2024 025 [facility], [address] [place] [address], [address], 04/21/2024 15:57:52 urinal ysis, dipsti ck 2024 025 [facility], [address] [place] [address], [address], 04/20/2024 11:39:09 CBC 2023 024 [facility], [address] [place] [address], [address], 01/17/2024 10:38:13 homocy steine , QN, serum or plasma 2023 024 [facility], [address] [place] [address], [address], 01/23/2024 14:08:15 CRP, high sensit ivity, serum or plasma 2023 024 [facility], [address] [place] [address], [address], 01/23/2024 14:08:16 apolip oprote in B, QN, serum or plasma 2023 024 [facility], [address] [place] [address], 56[address], 01/23/2024 14:08:17 rapid strep group A, throat [email or web address] [facility], [address] [place] [address], [address], 12/20/2023 09:28:15 cultur e, throat 2023 024 [facility], [address] [place] [address], [address], 12/22/2023 12:23:51 CBC 2023 024 [facility], [address] [place] [address], [id number], 12/24/2023 09:29:55 C-reac tive protei n, quanti tative , serum or plasma 2023 024 [facility], [address] [place] [address], [address], 12/25/2023 10:58:00 ESR (eryth rocyte sedime ntatio n rate), blood 2023 024 [facility], [address] [place] [address], [id number], 12/24/2023 10:05:05 cultur e, blood 2023 024 [facility], [address] [place] [address], [address], 12/29/2023 05:58:57 cultur e, blood 2023 024 [facility], [address] [place] [address], [address], 12/29/2023 05:58:59 Referral gyneco logist referr banadr walkeredadrián ng [address], [address], [place], [address], 04/20/2024 15:27:33 Procedures None record ed. Surgeries None record ed. Imaging US, pelvis , transa bdomin al + transv aginal - post menopa usal spotti ng 2024 025 [facility] (Imaging), [address], [place], [address], 04/20/2024 16:47:34 Medication Orders Augmen tin 875 mg-125 mg tablet 2023 024 STEVEN Marinelli ([facility]), [address], [place], [id number], 01/03/2024 11:09:33 benzon atate 200 mg capsul e 2023 025 STEVEN Marinelli ([facility]), [address], [place], [id number], 04/20/2024 09:29:17 Patient TargetsNo targets recorded. Patient Instructions Encounter Date Encounter Id Patient Instructions Last Modified By Organization Details Last Modified Time 08/19/2024 [id number] Patient care benjamin n: Dear Felisha Rosenbaum, It was great to see you today! Below is a summary of the plan we decided upon together: Rheumatoid arthritis - Continue your weekly methotrexate as prescribed. - Have the ordered blood tests (CBC, CRP, metabolic panel) done before your rheumatology visit later this month at the convenient local lab. - Follow up with your new chili pepper grinder at the end of August and return here in six months unless symptoms change sooner. Hyperlipidemia - Keep up your excellent exercise routine and heart-healthy diet. - Get a fasting cholesterol test with your other lab work; we will talk about results and whether any medicine is needed. Wellness and prevention - Schedule your next mammogram for October 2024. - Plan on a colonoscopy in 2025. - Your Pap smear is current until 2025. - Arrange an annual eye exam to check vision and eye pressure. - You are due for a COVID-19 booster now because of methotrexate; flu shot again this fall. - Tetanus is covered until 2032, and shingles and pneumonia vaccines are complete. Asthma - Continue using your Arnuity Ellipta inhaler every day. - No need for rescue inhaler use reported; contact us if breathing symptoms worsen. Anemia monitoring - A repeat CBC will be done with your upcoming labs to recheck your blood counts. If you have any questions or experience any new symptoms, please do not hesitate to reach out to our office. Sincerely, Ria Keith MD and your [facility] [email or web address] Not available 08/19/2024 12:04:33 Reason for Referral Powder Line Repairer Referral for Ab normal uterine bleeding postmenopausal bleeding Referring Physician: Lorrie Mckeon, Family Medicine, Encounter Date: 04/20/2024 Results Created Date Observation Date Name Description Value Unit Range Abnormal Flag Note LastModifiedBy Organization Detail LastModifiedTime 12/19/1912/19/2023 POCST REP strep A POC NEGATI VE Not Available [facility] [address] [place] [address], [address], 12/19/2023 16:24:10 12/19/19 24 12/22/2023 CULTU RE, THROA T culture, throat CULTU RE, THROA T Micro Numbe r: [id number] Test Statu s: Final Speci men Sourc e: Throa t Speci men Quali ty: Adequ ate Resul t: No oroph aryng eal patho gens recov ered. [facility] cano ed. Refer ence range s may have been cheikh ed. Sex,S pec updat ed to: F [facility] ed on: 12/21 Not Available [facility] [address], [address], 12/22/2023 12:23:51 12/23/19 24 12/24/2023 EMMA LAWTON AL segs 44 % 34-71 Not Available [address], [address], 12/24/2023 09:28:45 12/23/19 24 12/24/2023 MANUA Avel RUTHERFORDE RENTI AL lymph 36 % 19-53 Not Available [address], [address], 12/24/2023 09:28:45 12/23/19 24 12/24/2023 MANUA L DIFFE RENTI AL mono 8 % 4-12 Not Available [address], [address], 12/24/2023 09:28:45 12/23/19 24 12/24/2023 MANUA L DIFFE RENTI AL eosin 8 % 0-7 high Not Available [address], [address], 12/24/2023 09:28:45 12/23/19 24 12/24/2023 EMMA MAHARAJ reactive lymph 4 % 0-10 Not Available [address], [address], 12/24/2023 09:28:45 12/23/19 24 12/24/2023 EMMA MAHARAJ platelet estimate Adequa te Not Available [address], [address], 12/24/2023 09:28:45 12/23/19 24 12/24/2023 CBC WBC 5.58 K/ L 3.98-1 0.04 Pleas e see emma lawton al - YAHIR Not Available [address], [address], 12/24/2023 09:29:55 12/23/19 24 12/24/2023 CBC RBC 3.82 M/ L 3.93-5 .22 low Not Available [address], [address], 12/24/2023 09:29:55 12/23/19 24 12/24/2023 CBC HGB 12.1 g/dL 11.2-1 5.7 Not Available [address], [address], 12/24/2023 09:29:55 12/23/19 24 12/24/2023 CBC HCT 36.8 % 34.1-4 4.9 Not Available [address], [address], 12/24/2023 09:29:55 12/23/19 24 12/24/2023 CBC MCV 96.3 fL 79.4-9 4.8 high Not Available [address], [address], 12/24/2023 09:29:55 12/23/19 24 12/24/2023 CBC MCH 31.7 pg 25.6-3 2.2 Not Available [address], [address], 12/24/2023 09:29:55 12/23/19 24 12/24/2023 CBC MCHC 32.9 g/dL 32.2-3 5.5 Not Available [address], [address], 12/24/2023 09:29:55 12/23/1912/24/2023 CBC plt 278 K/ L 182-36 9 Not Available [address], [address], 12/24/2023 09:29:55 12/23/19 24 12/24/2023 CBC MPV 9.6 fL 9.4-12 .3 Not Available [address], [address]16, 12/24/2023 09:29:55 12/23/1912/24/2023 CBC neut% 50.6 % 34.0-7 1.1 Not Available [address], [address], 12/24/2023 09:29:55 12/23/1912/24/2023 CBC neut# 2.83 1.56-6 .13 Not Available [address], [address], 12/24/2023 09:29:55 12/23/19 24 12/24/2023 CBC lymph % 37.8 % 19.3-5 1.7 Not Available [address], [address], 12/24/2023 09:29:55 12/23/19 24 12/24/2023 CBC lymph # 2.11 K/ L 1.18-3 .74 Not Available [address] [place], [address], 12/24/2023 09:29:55 12/23/1912/24/2023 CBC mono% 4.7 % 4.7-12 .5 Not Available [address], [address], 12/24/2023 09:29:55 12/23/1912/24/2023 CBC mono# 0.26 0.24-0 .56 Not Available [address], [address], 12/24/2023 09:29:55 12/23/1912/24/2023 CBC eo% 6.1 % 0.7-5. 8 high Not Available [address], 67[address], 12/24/2023 09:29:55 12/23/1912/24/2023 CBC eo# 0.34 0.04-0 .36 Not Available [address], 94[address], 12/24/2023 09:29:55 12/23/1912/24/2023 CBC baso% 0.4 % 0.1-1. 2 Not Available [address], [address], 12/24/2023 09:29:55 12/23/1912/24/2023 CBC baso# 0.02 0.00-0 .08 Not Available [address], [address], 12/24/2023 09:29:55 12/23/1912/24/2023 CBC RDW-CV 12.9 % 11.7-1 4.4 Not Available [address], [address], 12/24/2023 09:29:55 12/23/1912/24/2023 CBC Ig% 0.400 % 0.000- 1.500 Ig % >0.5 Indic ates possi ble Left Shift Not Available [address], [address], 12/24/2023 09:29:55 12/23/19 24 12/24/2023 CBC Ig# 0.020 0.000- 0.093 Not Available [address], [address], 12/24/2023 09:29:55 12/23/19 24 12/24/2023 CBC NRBC% 0.0 % 0.0-0. 2 Not Available [address], [address], 12/24/2023 09:29:55 12/23/19 24 12/24/2023 CBC NRBC# 0.000 0.000- 0.012 Not Available [address], [address], 12/24/2023 09:29:55 12/23/1912/24/2023 ESR sed rate 51.0 0.0-15 .0 high Not Available [address], [address], 12/24/2023 10:05:05 12/23/1912/25/2023 C-ANDREI CTIVE PROTE IN (RCRP ) C-reactive protein (rcrp) 23.8 mg/dL 0.5-9. 0 high Not Available [address], [address], 12/25/2023 10:58:00 12/23/1912/25/2023 LIPID PANEL cholesterol 260 mg/dL <200 mg/dl Indu able 200-2 39 mg/dl Borde rline High >240 mg/dl High Not Available [address], [address], 12/25/2023 12:02:25 12/23/1912/25/2023 LIPID PANEL triglyceride s 130 mg/dL <150 mg/dL Piper l 150-1 99 mg/dL Borde rline High 200-4 99 mg/dL High >500 mg/dL Very High Not Available [address], [address], 12/25/2023 12:02:25 12/23/19 24 12/25/2023 LIPID PANEL direct HDL 48 mg/dL <40 mg/dl - Major Risk for CHD >60 mg/dl - Negat memo Risk for CHD Not Available [address], [address], 12/25/2023 12:02:25 12/23/19 24 12/25/2023 DIREC T LDL direct LDL 191 mg/dL RISK CATEG ORY LDL GOAL _ CHD or CHD Risk Equiv alent s <100 mg/dl (10-y ear risk >20%) 2+ Risk Facto rs <130 mg/dl (10-y ear risk <= 20%) 0-1 Risk Facto r <160 mg/dl Almo st all peopl e with 0-1 risk facto r have a 10 year risk <10%, thus 10 year risk asses ment in peopl e with 0-1 risk facto r is not neces vikram. Not Available [address], [address], 12/25/2023 12:02:26 12/23/19 24 12/25/2023 LDL - CALCU LATED LDL - calculated 186 RISK CATEG ORY LDL GOAL _ CHD or CHD Risk Equiv alent s <100 mg/dl (10-y ear risk >20%) 2+ Risk Facto rs <130 mg/dl (10-y ear risk <= 20%) 0-1 Risk Facto r <160 mg/dl Almo st all peopl e with 0-1 risk facto r have a 10 year risk <10%, thus 10 year risk asses ment in peopl e with 0-1 risk facto r is not isatu sue. Not Available [address], [address], 12/25/2023 12:02:27 12/23/19 24 12/29/2023 CULTU RE, BLOOD culture, blood CULTU RE, BLOOD Micro Numbe r: [id number] Test Statu s: Final Speci men Sourc e: Blood , right arm Speci men Quali ty: Subop timal Resul t: No growt h after 5 days TRANS PORT MEDIA : Aerob ic and anaer obic bottl e recei diamond. Not Available [facility] [address], [address], 12/29/2023 05:58:57 12/23/19 24 12/29/2023 CULTU RE, BLOOD culture, blood CULTU RE, BLOOD Micro Numbe r: [id number] Test Statu s: Final Speci men Sourc e: Blood , left arm Speci men Quali ty: Subop timal Resul t: No growt h after 5 days TRANS PORT MEDIA : Aerob ic and anaer obic bottl e recei diamond. Not Available [facility] [address], [address], 12/29/2023 05:58:59 01/17/20 24 01/17/2024 CBC WBC 3.97 K/ L 3.98-1 0.04 low Not Available [address], [address], 01/17/2024 10:38:13 01/17/20 24 01/17/2024 CBC RBC 4.10 M/ L 3.93-5 .22 Not Available [address], [address], 01/17/2024 10:38:13 01/17/20 24 01/17/2024 CBC HGB 13.2 g/dL 11.2-1 5.7 Not Available [address], [address], 01/17/2024 10:38:13 01/17/20 24 01/17/2024 CBC HCT 38.9 % 34.1-4 4.9 Not Available [address], [address], 01/17/2024 10:38:13 01/17/20 24 01/17/2024 CBC MCV 94.9 fL 79.4-9 4.8 high Not Available [address], [address], 01/17/2024 10:38:13 01/17/20 24 01/17/2024 CBC MCH 32.2 pg 25.6-3 2.2 Not Available [address], [address], 01/17/2024 10:38:13 01/17/20 24 01/17/2024 CBC MCHC 33.9 g/dL 32.2-3 5.5 Not Available [address], [address], 01/17/2024 10:38:13 01/17/20 24 01/17/2024 CBC plt 228 K/ L 182-36 9 Not Available [address], [address], 01/17/2024 10:38:13 01/17/20 24 01/17/2024 CBC MPV 9.7 fL 9.4-12 .3 Not Available [address], [address], 01/17/2024 10:38:13 01/17/20 24 01/17/2024 CBC neut% 44.1 % 34.0-7 1.1 Not Available [address], [address], 01/17/2024 10:38:13 01/17/20 24 01/17/2024 CBC neut# 1.75 1.56-6 .13 Not Available [address], [address], 01/17/2024 10:38:13 01/17/20 24 01/17/2024 CBC lymph % 42.3 % 19.3-5 1.7 Not Available [address], [address], 01/17/2024 10:38:13 01/17/20 24 01/17/2024 CBC lymph # 1.68 K/ L 1.18-3 .74 Not Available [address], [address], 01/17/2024 10:38:13 01/17/20 24 01/17/2024 CBC mono% 7.6 % 4.7-12 .5 Not Available [address], [address], 01/17/2024 10:38:13 01/17/20 24 01/17/2024 CBC mono# 0.30 0.24-0 .56 Not Available [address], [address], 01/17/2024 10:38:13 01/17/20 24 01/17/2024 CBC eo% 5.0 % 0.7-5. 8 Not Available [address], [address], 01/17/2024 10:38:13 01/17/20 24 01/17/2024 CBC eo# 0.20 0.04-0 .36 Not Available [address], [address], 01/17/2024 10:38:13 01/17/20 24 01/17/2024 CBC baso% 1.0 % 0.1-1. 2 Not Available [address], [address], 01/17/2024 10:38:13 01/17/20 24 01/17/2024 CBC baso# 0.04 0.00-0 .08 Not Available [address], [address], 01/17/2024 10:38:13 01/17/20 24 01/17/2024 CBC RDW-CV 13.7 % 11.7-1 4.4 Not Available [address], [address], 01/17/2024 10:38:13 01/17/20 24 01/17/2024 CBC Ig% 0.000 % 0.000- 1.500 Ig % >0.5 Indic ates possi ble Left Shift Not Available [address], [address], 01/17/2024 10:38:13 01/17/20 24 01/17/2024 CBC Ig# 0.000 0.000- 0.093 Not Available [address], [address], 01/17/2024 10:38:13 01/17/20 24 01/17/2024 CBC NRBC% 0.0 % 0.0-0. 2 Not Available [address], [address], 01/17/2024 10:38:13 01/17/20 24 01/17/2024 CBC NRBC# 0.000 0.000- 0.012 Not Available [address], [address], 01/17/2024 10:38:13 01/17/20 24 01/23/2024 HOMOC YSTEI NE homocysteine 10.2 umol/ L <10.4 normal Homoc ystei ne is incre ased by funct ional defic iency of folat e or vitam in B12. Testi ng for methy lmalo kenyatta acid diffe renti ates betwe en these defic ienci es. Other cause s of incre ased homoc ystei ne inclu de renal failu re, folat e antag onist s such as metho trexa te and pheny toin, and expos ure to nitro us oxide . Rory Singh, et al., Alanna Inter n Med. 1998; 131(5 ):331 -9. Not Available [facility] [address], [place], [address], 01/23/2024 14:08:15 01/17/20 24 01/23/2024 HS CRP hs CRP 0.6 mg/L normal Refer ence Range Optim al <1.0 Ciera GUILLORY et al. Endoc r Pract .2017 ;23(S uppl 2):1- 87. For ages >17 Years : hs-CR P mg/L Risk Accor ding to AHA/C DC Guide lines <1.0 Lower relat memo cardi ovasc ular risk. 1.0-3 .0 [place] ge relat memo cardi ovasc ular risk. 3.1-1 0.0 Highe r relat memo cardi ovasc ular risk. Consi dominic retes ting in 1 to 2 weeks to exclu de a benig n trans ient eleva tion in the basel ine CRP value secon giovani to infec tion or infla mmati on. >10.0 Persi stent eleva tion, upon retes ting, may be assoc iated with infec tion and infla mmati on. Pears on TA, Mensa h [place], Angelica milian RW, et al. Marke rs of infla mmati on and cardi ovasc ular disea se: appli catio n to clini lorenza and publi c healt h pract ice: A state ment for taiwot henok amin from the [facility] rs for Disea se Contr ol and Preve ntion and the Ameri can Heart Assoc iatio n. Circu latio n 2002; 107(3 ): 499-5 11. Not Available [facility] [address], [place], [address], 01/23/2024 14:08:16 01/17/20 24 01/23/2024 CARDI O IQ(R) APOLI POPRO TEIN B apolipoprote in B 160 mg/dL <90 high Risk: Optim al <90 mg/dL ; Moder ate 90-11 9 mg/dL ; High >= 120 mg/dL ; Cardi ovasc ular event risk categ ory cut point s (opti mal, moder ate, high) are based on Natio nal Lipid Assoc iatio n recom menda tiwagner - Rai wright TA et al. J of Clin Lipid . 2015; 9: 129-1 69 and Ciera GUILLORY et al. Endoc r Pract . 2017; 23(Cooper ppl 2):1- 87. Not Available [facility] [address] Prashant Carly, [place], [address], 01/23/2024 14:08:17 02/27/20 24 02/27/2024 CBC WBC 4.84 K/ L 3.98-1 0.04 Not Available [address], [address], 02/27/2024 16:56:12 02/27/20 24 02/27/2024 CBC RBC 4.14 M/ L 3.93-5 .22 Not Available [address], [address], 02/27/2024 16:56:12 02/27/20 24 02/27/2024 CBC HGB 13.5 g/dL 11.2-1 5.7 Not Available [address], [address], 02/27/2024 16:56:12 02/27/20 24 02/27/2024 CBC HCT 40.3 % 34.1-4 4.9 Not Available [address], [address], 02/27/2024 16:56:12 02/27/20 24 02/27/2024 CBC MCV 97.3 fL 79.4-9 4.8 high Not Available [address], [address], 02/27/2024 16:56:12 02/27/20 24 02/27/2024 CBC MCH 32.6 pg 25.6-3 2.2 high Not Available [address], [address], 02/27/2024 16:56:12 02/27/20 24 02/27/2024 CBC MCHC 33.5 g/dL 32.2-3 5.5 Not Available [address], [address], 02/27/2024 16:56:12 02/27/20 24 02/27/2024 CBC plt 242 K/ L 182-36 9 Not Available [address], [address], 02/27/2024 16:56:12 02/27/20 24 02/27/2024 CBC MPV 9.7 fL 9.4-12 .3 Not Available [address], [address], 02/27/2024 16:56:12 02/27/20 24 02/27/2024 CBC neut% 52.1 % 34.0-7 1.1 Not Available [address], [address], 02/27/2024 16:56:12 02/27/20 24 02/27/2024 CBC neut# 2.52 1.56-6 .13 Not Available [address], [address], 02/27/2024 16:56:12 02/27/20 24 02/27/2024 CBC lymph % 38.0 % 19.3-5 1.7 Not Available [address], [address], 02/27/2024 16:56:12 02/27/20 24 02/27/2024 CBC lymph # 1.84 K/ L 1.18-3 .74 Not Available [address], [address], 02/27/2024 16:56:12 02/27/20 24 02/27/2024 CBC mono% 6.4 % 4.7-12 .5 Not Available [address], [address], 02/27/2024 16:56:12 02/27/20 24 02/27/2024 CBC mono# 0.31 0.24-0 .56 Not Available [address], [address], 02/27/2024 16:56:12 02/27/20 24 02/27/2024 CBC eo% 2.3 % 0.7-5. 8 Not Available [address], [address], 02/27/2024 16:56:12 02/27/20 24 02/27/2024 CBC eo# 0.11 0.04-0 .36 Not Available [address], [address], 02/27/2024 16:56:12 02/27/20 24 02/27/2024 CBC baso% 1.0 % 0.1-1. 2 Not Available [address], [address], 02/27/2024 16:56:12 02/27/20 24 02/27/2024 CBC baso# 0.05 0.00-0 .08 Not Available [address], [address], 02/27/2024 16:56:12 02/27/20 24 02/27/2024 CBC RDW-CV 13.4 % 11.7-1 4.4 Not Available [address], [address], 02/27/2024 16:56:12 02/27/20 24 02/27/2024 CBC Ig% 0.200 % 0.000- 1.500 Ig % >0.5 Indic ates possi ble Left Shift Not Available [address], [address], 02/27/2024 16:56:12 02/27/20 24 02/27/2024 CBC Ig# 0.010 0.000- 0.093 Not Available [address], [address], 02/27/2024 16:56:12 02/27/20 24 02/27/2024 CBC NRBC% 0.0 % 0.0-0. 2 Not Available [address], [address], 02/27/2024 16:56:12 02/27/20 24 02/27/2024 CBC NRBC# 0.000 0.000- 0.012 Not Available [address], [address], 02/27/2024 16:56:12 02/27/20 24 02/28/2024 COMP. METAB OLIC PANEL glucose 89 mg/dL 70-100 Not Available [address], [address], 02/28/2024 09:56:25 02/27/20 24 02/28/2024 COMP. METAB OLIC PANEL BUN 12 mg/dL 7-18 Not Available [address], [address], 02/28/2024 09:56:25 02/27/20 24 02/28/2024 COMP. METAB OLIC PANEL creatinine 0.8 mg/dL 0.8-1. 3 Not Available [address], [address], 02/28/2024 09:56:25 02/27/20 24 02/28/2024 COMP. METAB OLIC PANEL B/C 15.0 ratio Not Available [address], [address], 02/28/2024 09:56:25 02/27/20 24 02/28/2024 COMP. METAB OLIC PANEL GFR >=60ML /MIN mL/mi n normal >=60m L/min - Piper l or midly reduc ed <60mL /min- Decre ased kidne y funct ion <15mL /min - Kidne y failu re Verdin y Medic al Group calcu lates estim ated Glome rular Filtr ation Rate (eGFR ) using the Chron ic Kidne y Disea se Epide miolo gy Colla borat ion (CKD- EPI) Equat ion (Mariela r et. al 2020) as recom carmina d by the Natio nal Kidne y Found ation . eGFR is based on age, serum creat inine , and sex. CKD-E PI does not calcu late eGFR by race, does not apply to child antonella (age <18 years ), and shoul d not be used in pregn chanelle. Not Available [address], [address], 02/28/2024 09:56:25 02/27/20 24 02/28/2024 COMP. METAB OLIC PANEL sodium 143 mmol/ L 136-14 5 Not Available [address], [address], 02/28/2024 09:56:25 02/27/20 24 02/28/2024 COMP. METAB OLIC PANEL potassium 4.6 mmol/ L 3.5-5. 1 Not Available [address], [address], 02/28/2024 09:56:25 02/27/20 24 02/28/2024 COMP. METAB OLIC PANEL chloride 104 mmol/ L 96-107 Not Available [address], [address], 02/28/2024 09:56:25 02/27/20 24 02/28/2024 COMP. METAB OLIC PANEL anion gap 12.2 5.0-15 .0 Not Available [address], [address], 02/28/2024 09:56:25 02/27/20 24 02/28/2024 COMP. METAB OLIC PANEL CO2 27 mmol/ L 21-32 Not Available [address], [address], 02/28/2024 09:56:25 02/27/20 24 02/28/2024 COMP. METAB OLIC PANEL calcium 9.1 mg/dL 8.5-10 .3 Not Available [address], [address], 02/28/2024 09:56:25 02/27/20 24 02/28/2024 COMP. METAB OLIC PANEL total protein 7.7 g/dL 6.4-8. 2 Not Available [address], [address], 02/28/2024 09:56:25 02/27/20 24 02/28/2024 COMP. METAB OLIC PANEL albumin 4.3 g/dL 3.4-5. 0 Not Available [address], [address], 02/28/2024 09:56:25 02/27/20 24 02/28/2024 COMP. METAB OLIC PANEL globulin 3.4 g/dL Not Available [address], [address], 02/28/2024 09:56:25 02/27/20 24 02/28/2024 COMP. METAB OLIC PANEL A/G 1.3 ratio 0.8-2. 0 Not Available [address], [address], 02/28/2024 09:56:25 02/27/20 24 02/28/2024 COMP. METAB OLIC PANEL total bilirubin 0.50 mg/dL 0.00-1 .00 Not Available [address], [address], 02/28/2024 09:56:25 02/27/20 24 02/28/2024 COMP. METAB OLIC PANEL AST 20 U/L 0-37 Not Available [address], [address], 02/28/2024 09:56:25 02/27/20 24 02/28/2024 COMP. METAB OLIC PANEL ALT 22 U/L 6-63 Not Available [address], [address], 02/28/2024 09:56:25 02/27/20 24 02/28/2024 COMP. METAB OLIC PANEL alk. phos. 87 U/L 50-136 Not Available [address], [address], 02/28/2024 09:56:25 02/27/20 24 02/28/2024 C-ANDREI CTIVE PROTE IN (RCRP ) C-reactive protein (rcrp) 1.2 mg/dL 0.5-9. 0 Not Available 17 [address], [address], 02/28/2024 09:56:26 02/27/20 24 02/28/2024 ESR sed rate 4.0 0.0-15 .0 Not Available [address], [address], 02/28/2024 10:07:30 02/27/20 24 02/28/2024 VITAM IN D 25-HY DROXY TOTAL vitamin D 25-hydroxy EIA 27.0 NG/mL 20.0-9 9.9 Thera py is based on measu remen t of total 25-OH D, with level s less than 20 ng/mL indic ative of Vitam in D defic iency . Level s betwe en 20ng/ mL and 30 ng/mL sugge st insuf ficie ncy. Optim al Level s are great er than 30 ng/mL . Not Available [address], [address], 02/28/2024 11:08:19 04/20/1904/20/2024 POC UA glu UA NEGATI VE Not Available [facility] [address] [place] [address], [address], 04/20/2024 09:44:13 04/20/1904/20/2024 POC UA clarity UA CLEAR Not Available [facility] [address] [place] [address], [address], 04/20/2024 09:44:13 04/20/1904/20/2024 POC UA uro UA 0.2000 Not Available [facility] [address] [place] [address], [address], 04/20/2024 09:44:13 04/20/1904/20/2024 POC UA ket UA NEGATI VE Not Available [facility] [address] [place] [address], [address], 04/20/2024 09:44:13 04/20/1904/20/2024 POC UA pro UA NEGATI VE Not Available [facility] [address] [place] [address], [address], 04/20/2024 09:44:13 04/20/1904/20/2024 POC UA nit UA NEGATI VE Not Available [facility] [address] [place] [address], [address], 04/20/2024 09:44:13 04/20/19 25 04/20/2024 POC UA calli UA NEGATI VE Not Available [facility] [address] [place] [address], [address], 04/20/2024 09:44:13 04/20/19 25 04/20/2024 POC UA pH UA 5.5000 Not Available [facility] [address] [place] [address], [address], 04/20/2024 09:44:13 04/20/1904/20/2024 POC UA SG UA >=1.03 00 Not Available [facility] [address] [place] [address], [address], 04/20/2024 09:44:13 04/20/1904/20/2024 POC UA color UA HARSH Not Available [facility] [address] [place] [address], [address], 04/20/2024 09:44:13 04/20/1904/20/2024 POC UA blo UA NEGATI VE Not Available [facility] [address] [place] [address], [address], 04/20/2024 09:44:13 04/20/1904/20/2024 POC UA ger UA NEGATI VE Not Available [facility] [address] [place] [address], [address], 04/20/2024 09:44:13 04/20/1904/21/2024 CULTU RE, URINE , ROUTI NE culture, urine, routine CULTU RE, URINE , ROUTI NE Micro Numbe r: [id number] Test Statu s: Final Speci men Sourc e: Urine Speci men Quali ty: Adequ ate Resul t: No Growt h Not Available [facility] [address], [place], [address], 04/21/2024 15:57:52 06/02/1906/03/2024 ANATO AUNG PATHO LOGY path report [facility] [address] [place] [address] Lab Direc tor: Michel alonzo MD Surgi lorenza Patho logy Repor t Acces lindsay #: [id number] FINAL PATHO LOGIC DIAGN OSIS: ENDOM ETRIA L CURET TINGS : Scant benig n endom etria l tissu e, squam ous epith elium and blood . Mavis ctron icall y Tamie d Out By Nae islas MD By his/h er signa princee above , the patho logis t liste d as dianesilvano davonte the Final Diagn osis certi fies that he/sh e has perso samira revie wed this case and confi rmed or corre cted the diagn osis. CLINI LORENZA HISTO RY Thick ened endom etriu m, postm enopa usal bleed ing. SPECI MENS SUBMI TTED: A: ENDOM ETRIA L CURET TINGS GROSS DESCR IPTIO N ENDOM ETRIA L CURET TINGS : Recei diamond in forma taylor is a 0.4 x 0.4 x 0.2 cm aggre gate of dark red-b rown clot admix ed with irreg ular wilson-p ink soft tissu e fragm ents which is submi tted in toto in a singl e casse tte label ed A1. Gross ed by: Hernando castillo, MHS, PA( CP) LT 025 Gross ing Staff : [id number] Melody nt Name: FELISHA MCBRIDE : 965 (Age: 58) Sex: F 2 Insti tutio n: [facility] Locat ion: [facility]OP Date of Opera tion: 2024 Date of Acces lindsay: 025 Repor rohan: 025 15:14 Resul ts To: Claudia webb MD, BS Not Available [facility] (Out[facility] [address] [place], [address], 06/03/2024 17:29:48 09/08/19 25 09/07/2024 ESR sed rate 2.0 0.0-15 .0 Not Available [address], [address], 09/07/2024 11:35:10 09/08/19 25 09/08/2024 COMP. METAB OLIC PANEL glucose 99 mg/dL 70-100 Not Available [address], [address], 09/08/2024 11:40:39 09/08/19 25 09/08/2024 COMP. METAB OLIC PANEL BUN 12 mg/dL 7-18 Not Available [address], [address], 09/08/2024 11:40:39 09/08/1909/08/2024 COMP. METAB OLIC PANEL creatinine 0.8 mg/dL 0.8-1. 3 Not Available [address], [address], 09/08/2024 11:40:39 09/08/19 25 09/08/2024 COMP. METAB OLIC PANEL B/C 15.0 ratio Not Available [address], [address], 09/08/2024 11:40:39 09/08/19 25 09/08/2024 COMP. METAB OLIC PANEL GFR >=60ML /MIN mL/mi n normal >=60m L/min - Piper l or midly reduc ed <60mL /min- Decre ased kidne y funct ion <15mL /min - Kidne y failu re [facility] y [facility] calcu lates estim ated Glome rular Filtr ation Rate (eGFR ) using the Chron ic Kidne y Disea se Epide miolo gy Colla borat ion (CKD- EPI) Equat ion (Mariela r et. al 2020) as recom carmina d by the Natio nal Kidne y Found ation . eGFR is based on age, serum creat inine , and sex. CKD-E PI does not calcu late eGFR by race, does not apply to child antonella (age <18 years ), and shoul d not be used in pregn chanelle. Not Available [address], [address], 09/08/2024 11:40:39 09/08/19 25 09/08/2024 COMP. METAB OLIC PANEL sodium 140 mmol/ L 136-14 5 Not Available [address], [address], 09/08/2024 11:40:39 09/08/19 25 09/08/2024 COMP. METAB OLIC PANEL potassium 4.5 mmol/ L 3.5-5. 1 Not Available [address], [address], 09/08/2024 11:40:39 09/08/19 25 09/08/2024 COMP. METAB OLIC PANEL chloride 103 mmol/ L 96-107 Not Available [address], [address], 09/08/2024 11:40:39 09/08/19 25 09/08/2024 COMP. METAB OLIC PANEL anion gap 13.0 5.0-15 .0 Not Available [address], [address], 09/08/2024 11:40:39 09/08/19 25 09/08/2024 COMP. METAB OLIC PANEL CO2 24 mmol/ L 21-32 Not Available [address], [address], 09/08/2024 11:40:39 09/08/19 25 09/08/2024 COMP. METAB OLIC PANEL calcium 8.8 mg/dL 8.5-10 .3 Not Available [address], [address], 09/08/2024 11:40:39 09/08/19 25 09/08/2024 COMP. METAB OLIC PANEL total protein 7.4 g/dL 6.4-8. 2 Not Available [address], [address], 09/08/2024 11:40:39 09/08/19 25 09/08/2024 COMP. METAB OLIC PANEL albumin 4.3 g/dL 3.4-5. 0 Not Available [address], [address], 09/08/2024 11:40:39 09/08/19 25 09/08/2024 COMP. METAB OLIC PANEL globulin 3.1 g/dL Not Available [address], [address], 09/08/2024 11:40:39 09/08/19 25 09/08/2024 COMP. METAB OLIC PANEL A/G 1.4 ratio 0.8-2. 0 Not Available [address], [address], 09/08/2024 11:40:39 09/08/19 25 09/08/2024 COMP. METAB OLIC PANEL total bilirubin 0.80 mg/dL 0.00-1 .00 Not Available [address], [address], 09/08/2024 11:40:39 09/08/19 25 09/08/2024 COMP. METAB OLIC PANEL AST 26 U/L 0-37 Not Available [address], [address], 09/08/2024 11:40:39 09/08/19 25 09/08/2024 COMP. METAB OLIC PANEL ALT 40 U/L 6-63 Not Available [address], [address], 09/08/2024 11:40:39 09/08/19 25 09/08/2024 COMP. METAB OLIC PANEL alk. phos. 96 U/L 50-136 Not Available [address], [address], 09/08/2024 11:40:39 09/08/1909/08/2024 LDL - CALCU LATED LDL - calculated 219 RISK CATEG ORY LDL GOAL _ CHD or CHD Risk Equiv alent s <100 mg/dl (10-y ear risk >20%) 2+ Risk Facto rs <130 mg/dl (10-y ear risk <= 20%) 0-1 Risk Facto r <160 mg/dl [facility] all peopl e with 0-1 risk facto r have a 10 year risk <10%, thus 10 year risk asses ment in peopl e with 0-1 risk facto r is not isatu sue. Not Available [address], [address], 09/08/2024 11:40:42 09/08/19 25 09/08/2024 VITAM IN B12 vitamin B12 606 pg/mL 230-10 50 Not Available [address], [address], 09/08/2024 14:07:18 12/19/19 24 12/19/2023 XR, chest CLINIC AL HISTOR Y: Cough, fever for 5 weeks. TECHNI QUE: Fronta l view and latera l view of the chest obtain ed. COMPAR POPPY: 06/09/19 16 FINDIN GS: The heart is normal in size and config uratio n.Ther e is no hilar or medias tinal enlarg ement. There is no focal lung consol idatio n or infilt rate. The bony thorax is intact . IMPRES LINDSAY: No acute diseas e. Readin g Physic azra: Emmanuel Fuller ms [email or web address] [facility] ([facility]) [address] , [place], [address], 12/20/2023 09:18:35 12/19/19 24 12/19/2023 XR, chest CLINIC AL HISTOR Y: Cough, fever for 5 weeks. TECHNI QUE: Fronta l view and latera l view of the chest obtain ed. COMPAR POPPY: 06/09/19 16 FINDIN GS: The heart is normal in size and config uratio n.Ther e is no hilar or medias tinal enlarg ement. There is no focal lung consol idatio n or infilt rate. The bony thorax is intact . IMPRES LINDSAY: No acute diseas e. Readin g Physic azra: Emmanuel Fuller ms [email or web address] [facility]) [address], [place], [address], 12/20/2023 09:18:35 04/20/19 25 04/20/2024 US, pelvi s, trans abdom inal + trans vagin al CLINIC AL HISTOR Y: Postme nopaus al spotti ng for years. TECHNI QUE: Transa bdomin al and endova ginal sonogr aphy of the pelvis perfor med. COMPAR POPPY: None. FINDIN GS: Uterus 3.6 x 2.0 x 5.8 cm. The uterus is anteve rted. The uterus is hetero geneou s. There is a 4.6 x 5.4 x 5.3 cm cook specialty ior fibroi d. There is a 2.1 x 2.4 x 2.3 cm fundal fibroi d. There is a 2.1 x 2.2 x 2.3 cm cook specialty ior lower uterin e segmen t fibroi d. Endome trium 8 mm. There is no focal endome trial abnorm ality. The right and left ovarie s are not visual ized. There is no abnorm al free fluid. IMPRES LINDSAY: 1. Fibroi d uterus . 2. Thicke madison endome trium for a postme nopaus al patien t. Jesse arauz Physic azra: [facility] ms [facility] [address], [place], [address], 04/20/2024 17:39:06 Result Notes Documentation Provider Name and Address Organization Details Recorded Time Xr, Chest : CLINICAL HISTORY: Cough, fever for 5 weeks. TECHNIQUE: Frontal view and lateral view of the chest obtained. COMPARISON: 06/09/2015 FINDINGS: The heart is normal in size and configuration.There is no hilar or mediastinal enlargement. There is no focal lung consolidation or infiltrate. The bony thorax is intact. IMPRESSION: No acute disease. Reading Physician: Brayden HASSAN, [address], [place], [address], [facility] 12/20/2023 09:18:35 Xr, Chest : CLINICAL HISTORY: Cough, fever for 5 weeks. TECHNIQUE: Frontal view and lateral view of the chest obtained. COMPARISON: 06/09/2015 FINDINGS: The heart is normal in size and configuration.There is no hilar or mediastinal enlargement. There is no focal lung consolidation or infiltrate. The bony thorax is intact. IMPRESSION: No acute disease. Reading Physician: Brayden HASSAN DO [address] [place] [address], [phone], [facility] 12/20/2023 09:18:35 Problems Name Problem SNOMED Code Status Onset Date Resolution Date Notes Provider Name and Address Organization Details Recorded Time Common cold 98925234 Completed 01/21/2013 Not Available [facility] 3 02:00:30 Pneumonia 741224838 Completed 01/21/2013 Not Available [facility] 3 02:02:26 Knee pain Completed 01/21/2013 Not Available [facility] 3 02:00:43 Exercise-i nduced asthma 23398914 Completed Not Available [facility] 3 03:15:46 Paronychia of finger 068122884 Completed 01/21/2013 Not Available [facility] 3 02:04:05 Intrinsic asthma 565756506 Completed Leandro Zheng DPM [address] [place] [address], [address] , [facility] 6 15:19:03 Asthma 885975950 Completed NADYA Frederick [address] [place] [address], [address] , [facility] 4 17:08:16 Adult health examinatio n Completed 09/28/2016 Ria Keith MD [address] [place] [address], [phone] , [facility] 7 19:52:37 Counseling Completed 09/28/2016 Ria Keith MD [address] [place] [address], [address] , [facility] 7 19:52:43 Knee pain Active LUCERO Be [address] [place] [address], [address] , [facility] 6 18:01:29 Uterine leiomyoma 80457531 Active Leandro Zheng DPM [address] [place] [address], , [facility] 6 15:19:03 Anterior knee pain 152388652 Completed 08/01/2017 Luanne Lozada NP [address] [place] [address], , [facility] 8 05:53:05 Metatarsal mike 64006023 Completed Leandro Zheng, ROSSY [address] [place] [address], , [facility] 6 15:22:15 Pronation of foot 03951338 Completed Leandro Zheng DPM [address] [place] [address], , [facility] 6 15:22:15 Rheumatoid arthritis 48127199 Active Lyudmila Bradley MD [address] [place] [address], , [facility] 6 19:04:13 Rheumatoid arthritis 04058221 Completed Lyudmila Bradley MD [address] [place] [address], , [facility] 6 19:04:13 Knee pain Completed LUCERO Be [address] [place] [address], , [facility] 6 18:01:29 Anterior knee pain 543513627 Completed Lyudmila Bradley MD [address] [place] [address], , [facility] 6 19:04:13 Tenosynovi tis of fingers 561569108 Active Lyudmila Bradley MD [address] [place] [address], , [facility] 6 19:04:13 Tenosynovi tis of fingers 005568407 Completed Lyudmila Bradley MD [address] [place] [address], , [facility] 6 19:04:13 Intrinsic asthma 631214780 Active Leandro Zheng DPM [address] [place] [address], , [facility] 6 15:19:03 Exercise-i nduced asthma 29965287 Completed 12/31/2012 Leandro Zheng DPM [address] [place], [address] , [facility] 6 15:19:03 Neck pain 20798082 Completed 200012/31/2012 Leandro Zheng DPM [address] [place], [address] , [facility] 6 15:19:04 Asthma 642773567 Completed 200012/31/2012 Leandro Zheng DPM [address] [place], [address] , [facility] 6 15:19:03 Neck sprain 527611192 Completed 200012/31/2012 Leandro Zheng DPM [address] [place], [address] , [facility] 6 15:19:04 Common cold 43171347 Completed 200012/31/2012 Leandro Zheng DPM [address] [place], [address] , [facility] 6 15:19:03 Extrinsic asthma with asthma attack Completed 200012/31/2012 Leandro Zheng DPM [address] [place], [address] , [facility] 6 15:19:03 Sprain of shoulder and upper arm Completed 200012/31/2012 Leandro Zheng DPM [address] [place], [address] , [facility] 6 15:19:04 Joint stiffness 82166331 Completed 200012/31/2012 Leandro Zheng DPM [address] [place], [address] , [facility] 6 15:19:04 On examinatio n - a rash Completed 200012/31/2012 Leandro Zheng DPM [address] [place], [address] , [facility] 6 15:19:04 Skin sensation disturbanc e 34118916 Completed 200112/31/2012 Leandro Zheng DPM [address] [place], [place], , [facility] 6 15:19:04 Atopic dermatitis 52159451 Completed 200102/04/2015 Leandro Zheng DPM [address] [place] [address], [address] , [facility] 6 15:19:03 Primary fibromyalg ia syndrome 65862287 Completed 200102/04/2015 Leandro Zheng DPM [address] [place] [address], [address] , [facility] 6 15:19:04 Acne 59642824 Completed 200102/04/2015 Leandro Zheng DPM [address] [place] [address], , [facility] 6 15:19:03 Malaise and fatigue 791675758 Completed 200212/31/2012 Leandro Zheng DPM [address] [place] [address], [address] , [facility] 6 15:19:04 Anemia 938479932 Completed 200202/04/2015 Leandro Zheng DPM [address] [place] [address], [address] , [facility] 6 15:19:03 Allergic rhinitis caused by pollen 12866092 Active 2002 Leandro Zheng DPM [address] [place], [address] , [facility] 6 15:19:03 Acute conjunctiv itis 81187024 Completed 200212/31/2012 Leandro Zheng DPM [address] [place], [address] , [facility] 6 15:19:03 Cough 54547446 Completed 200212/31/2012 Leandro Zheng DPM [address] [place], [address] , [facility] 6 15:19:04 Allergic asthma without status asthmaticu s 08563577 Completed 2002 Leandro Zheng DPM [address] [place], [address] , [facility] 6 15:19:03 Allergic asthma without status asthmaticu s 99813973 Completed 200208/01/2017 Luanne Lozada NP [address] [place], [address] , [facility] 8 05:53:25 Pain of shoulder region 46186383 Completed 200312/31/2012 Leandro Zheng DPM [address] [place], [address] , [facility] 6 15:19:04 Knee pain Completed 200301/21/2013 Leandro Zheng DPM [address] [place], [address] , [facility] 6 15:19:04 Acute bronchitis 01694841 Completed 200312/31/2012 Leandro Zheng DPM [address] [place], [address] , [facility] 6 15:19:03 Urticaria 435305252 Completed 200312/31/2012 Leandro Zheng DPM [address] [place], [address] , [facility] 6 15:19:04 White blood cell disorder 13701710 Completed 200302/04/2015 Leandro Zheng DPM [address] [place], [address] , [facility] 6 15:19:03 Myopia 00762253 Completed 200408/01/2017 Luanne Lozada NP [address] [place], [address] , [facility] 8 05:53:18 Acute upper respirator y infection of multiple sites Completed 200712/31/2012 Leandro Zheng DPM [address] [place], [address] , [facility] 6 15:19:03 Fever 945924184 Completed 200712/31/2012 Leandro Zheng DPM [address] [place], [address] , [facility] 6 15:19:04 Abnormal weight gain 058251392 Completed 200812/31/2012 Leandro Zheng DPM [address] [place], [address] , [facility] 6 15:19:04 Mixed hyperlipid emia 425952093 Completed 2008 Leandro Zheng DPM [address] [place], [address] , [facility] 6 15:19:03 Mixed hyperlipid emia 877744883 Active 2008 Leandro Zheng DPM [address] [place] [address], [address] , [facility] 6 15:19:03 Long-term drug therapy Completed 201508/01/2017 Luanne Lozada NP [address] [place], [address] , [facility] 8 05:53:11 Problem Notes None recorded. Procedures Surgical History Date Name Laterality Status Provider Name and Address Organization Details Recorded Time 08/23/19 94692: Therapeutic Exercise completed Soniya Rivera, PT [address] [place], [address], [facility] 08/23/2023 12:02:57 08/12/19 17049: Therapeutic Exercise completed Soniya Rivera, PT [address] [place], [address], [facility] 08/12/2023 14:51:36 07/22/19 36445: Therapeutic Exercise completed Soniya Rivera, PT [address] [place], [address], [facility] 07/22/2023 10:05:47 05/13/20 24 74147: Therapeutic Exercise completed Soniya Rivera, PT [address] [place], [address], [facility] 07/15/2023 13:05:56 05/31/19 24 15791: Therapeutic Exercise completed Soniya Rivera, PT [address] [place], [address], [facility] 05/31/2023 12:06:45 05/24/19 24 00049: Therapeutic Exercise completed Soniya Rivera, PT [address] [place], [address], [facility] 05/24/2023 12:05:54 05/17/19 24 13888: Therapeutic Exercise completed Soniya Rivera, PT [address] [place], [address], [facility] 05/18/2023 15:50:32 05/10/19 24 08237: Therapeutic Exercise completed Soniya Rivera, PT [address] [place], [address], [facility] 05/12/2023 10:43:07 05/10/19 24 Physical Activity Counselling completed Soniya Rivera, PT [address] [place], [address], [facility] 05/09/2023 17:25:12 05/10/19 24 58474: PT Eval Low Complexity completed Soniya Rivera, PT [address] [place], [address], [facility] 05/09/2023 17:25:12 05/10/19 24 Treatment and Advice completed Soniya Rivera, PT [address] [place], [address], [facility] 05/12/2023 10:37:21 03/29/19 24 Knee (Right) Injection completed Ria Keith MD [address] [place] [address], [address], [facility] 03/30/2023 22:38:46 03/18/19 24 Knee (Left) Injection completed Ria Keith MD [address] [place] [address], [address], [facility] 03/21/2023 09:34:02 06/23/19 23 Asthma Control Test (12 + years old) completed Bhavin Blair CMA [facility] 06/22/2022 11:47:10 11/28/19 22 Asthma Control Test (12 + years old) completed Bea De Los Santos LPN [facility] 11/27/2021 16:36:57 10/19/19 17082: Therapeutic Exercise completed Larissa Estrada, PT [address] [place], [address], [facility] 10/18/2021 14:29:52 10/19/19 22 95368: Manual Therapy completed Larissa Estrada, PT [address] [place], [address], [facility] 10/18/2021 14:29:56 10/19/19 Treatment and Advice completed Larissa Estrada, PT [address] [place], [address], [facility] 10/18/2021 14:01:40 09/20/19 73321: Therapeutic Exercise completed Larissa Estrada, PT [address] [place], [address], [facility] 09/19/2021 17:28:32 09/20/19 Treatment and Advice completed Larissa Estrada, PT [address] [place], [address], [facility] 09/19/2021 17:28:32 08/30/19 22 91478: Therapeutic Exercise completed Larissa Estrada, PT [address] [place], [address], [facility] 08/29/2021 17:35:35 08/30/19 22 Treatment and Advice completed Larissa Estrada, PT [address] [place], [address], [facility] 08/29/2021 18:00:56 08/23/19 22 55498: Therapeutic Exercise completed Larissa Estrada, PT [address] [place], [address], [facility] 08/22/2021 18:03:21 08/23/19 22 Treatment and Advice completed Larissa Estrada, PT [address] [place], [address], [facility] 08/22/2021 18:05:32 08/16/19 22 20084: Therapeutic Exercise completed Larissa Estrada, PT [address] [place], [address], [facility] 08/15/2021 19:47:05 08/16/19 22 Treatment and Advice completed Larissa Estrada, PT [address] [place], [address], [facility] 08/15/2021 19:46:19 08/11/19 22 Physical Activity Counselling completed Larissa Estrada, PT [address] [place], [address], [facility] 08/10/2021 07:42:47 08/11/19 22 98048: PT Eval Low Complexity completed Larissa Estrada, PT [address] [place], [address], [facility] 08/10/2021 07:42:44 08/11/19 22 Treatment and Advice completed Larissa Estrada, PT [address] [place], [address], [facility] 08/10/2021 08:02:43 06/27/19 22 Asthma Control Test (12 + years old) completed Katelin Chao [facility] 06/26/2021 15:59:49 12/08/19 21 Asthma Control Test (12 + years old) completed Melissa Dunn [facility] 12/07/2020 14:38:53 05/03/19 21 prevention-card iovascular risk reduction counseling completed Melissa Dunn [facility] 05/02/2020 15:19:26 05/03/19 21 prevention-lynda al alcohol misuse screening completed Melissa Dunn [facility] 05/02/2020 15:19:26 04/27/19 20 Trigger Finger Injection RB completed Lyudmila Bradley MD [address] [place], [address], [facility] 04/27/2019 15:25:34 09/27/19 19 Generic Procedure Template completed Lyudmila Bradley MD [address] [place] [address], [address], [facility] 09/28/2018 11:36:46 07/11/19 19 Physical Activity Counselling completed Georgina Solares, OT [address] [place], [address], [facility] 07/10/2018 20:39:55 07/11/19 19 39685: OT Eval, Moderate Complexity completed Georgina Solares, OT [address] [place], [address], [facility] 07/10/2018 20:39:59 09/28/19 18 17216: Therapeutic Exercise completed Leandro Pike, PT [address] [place], [address], [facility] 09/27/2017 14:40:27 09/28/19 18 Treatment and Advice completed Leandro Pike, PT [address] [place], [address], [facility] 09/27/2017 14:56:47 08/31/19 18 64261: Therapeutic Exercise completed Leandro Pike, PT [address] [place], [address], [facility] 08/30/2017 10:37:08 08/31/19 18 16464: Ultrasound (1:1) completed Leandro Pike, PT [address] [place], [address], [facility] 08/30/2017 10:37:39 08/31/19 18 Treatment and Advice completed Leandro Pike, PT [address] [place], [address], [facility] 08/30/2017 10:34:51 08/24/19 18 03166: Therapeutic Exercise completed Leandro Pike, PT [address] [place], [address], [facility] 08/23/2017 11:28:22 08/24/19 18 Treatment and Advice completed Leandro Pike, PT [address] [place], [address], [facility] 08/23/2017 11:28:04 08/17/19 18 Physical Activity Counselling completed Leandro Pike, PT [address] [place], [address], [facility] 08/16/2017 16:36:13 08/17/19 18 98708: PT Eval Low Complexity completed Leandro Pike, PT [address] [place], [address], [facility] 08/16/2017 16:36:13 08/14/19 18 Nebulizer Tx completed Eliane Rodgers [facility] 08/13/2017 10:51:42 08/12/19 16 92885: Therapeutic Exercise completed Leandro Pike, PT [address] [place], [address], [facility] 08/12/2015 17:00:08 08/12/19 16 Treatment and Advice completed Leandro Pike, PT [address] [place], [address], [facility] 08/12/2015 17:00:08 07/29/19 16 76956: Therapeutic Exercise completed Leandro Pike, PT [address] [place], [address], [facility] 07/30/2015 07:14:21 07/29/19 16 Treatment and Advice completed Leandro Pike, PT [address] [place], [address], [facility] 07/29/2015 16:58:00 07/26/19 16 Trigger Finger Injection RB completed Lyudmila Bradley MD [address] [place], [address], [facility] 07/26/2015 19:03:32 07/15/19 16 61780: PT Evaluation completed Leandro Pike, PT [address] [place], [address], [facility] 07/15/2015 17:30:08 04/29/19 16 88578: Therapeutic Exercise completed Leandro Pike, PT [address] [place], [address], [facility] 05/01/2015 11:32:49 04/08/19 16 17865: Therapeutic Exercise completed Leandro Pike, PT [address] [place], [address], [facility] 04/08/2015 17:14:33 03/18/19 16 25292: Therapeutic Exercise completed Leandro Pike, PT [address] [place], [address], [facility] 03/18/2015 18:20:59 03/11/19 16 Yelitza - Colonoscopy completed Bhavin Torre MD [address] [place], [address], [facility] 03/11/2015 07:53:39 03/11/19 16 Colonoscopy completed Mery He [facility] 10/25/2021 15:04:06 02/19/20 15 71211: PT Evaluation completed Leandro Pike, PT [address] [place], [address], [facility] 02/18/2015 16:14:24 01/01/20 13 Asthma Control Test (12 + years old) completed Genesis Lyons [facility] 12/31/2012 15:56:03 12/31/19 10 Treatment and Advice completed Leandro Pike, PT [address] [place], [address], [facility] 12/30/2009 13:38:40 12/24/19 10 Treatment and Advice completed Leandro Pike, PT [address] [place], [address], [facility] 12/23/2009 13:36:51 11/29/19 10 Treatment and Advice completed Leandro Pike, PT [address] [place], [address], [facility] 11/28/2009 12:30:58 Imaging Results None recorded. Procedure Notes None recorded. Medical Equipment None Reported. Allergies Allergen ID Allergen Name Allergen Category Reaction Reaction Severity Criticality Documentation Date Start Date Code Code System Note Provider Name and Address Organization Details Recorded Time 18790709 diphenhyd ramine medicatio n edema Not available Not available 05/05/2015 3498 RxNorm RICK Johnson, [facility] 6 16:42:55 224244 adhesive environme nt,medica tion rash mild low 08/22/20212021 87248 UNK Larissaignacio henao, PT [address] [facility], [place], [address] [place] [address] 2 17:37:01 6504 Benadryl medicatio n Not available Not available Not available 05/24/200838112 7 RxNorm swell ing & eyes water ing Not Available [facility] 1 06:05:20 Medications Name Sig Start Date Stop Date Status Note LastModified by Organization Details LastModified Time leucovori n calcium 5 mg tabs 06/30 completed Not Available Not Available Not Available flovent hfa 110 mcg/act aero 09/26 completed Not Available Not Available Not Available amoxicill in 875 mg tabs 06/30 completed Not Available Not Available Not Available calcium/v itamin d3 600-10 mg-mcg tabs active Not Available Not Available Not Available methotrex [...] oral route as needed for 14 days. 04/20 completed finsihed 01/03/24 DS Not Available Not Available Not Available Keflex 500 mg capsule Take 1 capsule 3 times a day by oral route for 7 days. 08/22 completed Not Available Not Available Not Available prednison e 20 mg tablet 3 tabs po daily for 5 days 01/02 completed Finished 12/03/23 Not Available Not [...] sulfate HFA 90 mcg/actua tion aerosol inhaler INHALE 2 PUFFS BY MOUTH EVERY 4 HOURS NEEDED 2024 active Not Available Not Available Not Avai lable fluticaso ne propionat e 110 mcg/actua tion HFA aerosol inhaler INHALE 2 PUFFS BY MOUTH TWICE DAILY NEEDED 12/02 completed Not Available Not Available Not Available naproxen 500 mg tablet Take 1 tablet twice a day by oral route. active Not Available Not Available No t Available amoxicill in 875 mg-potass ium clavulana te 125 mg tablet Take 1 tablet every 12 hours by oral route for 7 days. 01/02 completed not using 01/03/24 DS Not [...] 200 mcg/actua tion powder for inhalatio n 08/19 completed Not Available Not Available Not Available Arnuity Ellipta 100 mcg/actua tion powder for inhalatio n Inhale 2 puffs every day by inhalati on route for 30 days. active Not Available Not Available No t Available Vitals Date Recorded Body height Body mass index (BMI) Body weight Oxygen saturation Oxygen saturation in Arterial blood by Pulse oximetry Heart rate Body temperature Systolic And Diastolic Provider Name and Address Organization Details Last Updated DateTime 5 149.23 cm 27.9 kg/m2 26399.8 5 g 100 % 100 % 64 /min 98.1 [degF] 112/68 mm[Hg] Kimber Christopher MA [facility] 5 09:35:21 Date Recorded Body height Body mass index (BMI) Body weight Oxygen saturation Oxygen saturation in Arterial blood by Pulse oximetry Heart rate Systolic And Diastolic Provider Name and Address Organization Details Last Updated DateTime 5 149.23 cm 27.5 kg/m2 53107.3 2 g 97 % 97 % 55 /min 98/60 mm[Hg] Gisela Adams , [facility] 5 11:44:01 Date Recorded Body height Body temperature Heart rate Oxygen saturation Oxygen saturation in Arterial blood by Pulse oximetry Systolic And Diastolic Provider Name and Address Organization Details Last Updated DateTime 4 149.23 cm 98.3 [degF] 83 /min 97 % 97 % 96/64 mm[Hg] Nafisa YESICA Lo [facility] 4 13:42:14 Date Recorded Body height Body mass index (BMI) Body weight Oxygen saturation Oxygen saturation in Arterial blood by Pulse oximetry Heart rate Body temperature Systolic And Diastolic Provider Name and Address Organization Details Last Updated DateTime 4 149.23 cm 28.1 kg/m2 95230.7 5 g 99 % 99 % 64 /min 100.4 [degF] 120/80 mm[Hg] Vicki Balaji [facility] 4 16:08:49 Date Recorded Body height Oxygen saturation Oxygen saturation in Arterial blood by Pulse oximetry Heart rate Body mass index (BMI) Body weight Systolic And Diastolic Provider Name and Address Organization Details Last Updated DateTime 4 149.23 cm 97 % 97 % 69 /min 27.3 kg/m2 47637.0 8 g 112/64 mm[Hg] Gisela Adams [facility] 4 11:06:29 Social History Question Answer Notes LastModified by Organizat ion Details LastModified Time Tobacco Smoking Status Never Smoker Not Available [facility] 01/18/2011 04:53:49 Do You Have An Advance Directive? Yes [email or web address] Information not available 02/07/2022 Do You Wear A Helmet When Biking? Yes [email or web address] Information not available 02/07/2022 What Is Your Level Of Caffeine Consumption? Occasional 1 Iced Mocha A Week [email or web address] Information not available 06/28/2023 How Much Tobacco Do You Chew? None Information not available 12/31/2012 What Type Of Diet Are You Following? VEGETARIAN [employer]ational [employer] [email or web address] Information not available 02/07/2022 Which Illicit Or Recreational Drugs Have You Used? None Information not available 05/02/2020 Education 4 Year College [email or web address] Information not available 02/07/2022 What Is The Highest Grade Or Level Of School You Have Completed Or The Highest Degree You Have Received? [id number] [email or web address] Information not available 06/26/2021 How Many Days Of Moderate To Strenuous [...] With Others [email or web address] Information not available 02/07/2022 Patient Has Health Care Proxy Signed And In Chart Yes [email or web address] Information not available 08/24/2024 Marital Status [email or web address] Informatio n not available 02/07/2022 Mosquito Repellent Used Routinely Yes [email or web address] Information not available 02/07/2022 What Was The Date Of Your Most Recent Tobacco Screening? 08/19/2024 [email or web address] Information not available 08/19/2024 How Many Children Do You Have? 1 [...] Smoke? No [email or web address] Information not available 02/07/2022 How Much Tobacco Do You Smoke? No [email or web address] Information not available 02/07/2022 General Stress Level Low [email or web address] Information not available 02/07/2022 Do You Use Sunscreen Routinely? Yes [email or web address] Information not available 02/07/2022 How Many Years Have You Smoked Tobacco? 0 Information not available 05/02/2020 Sex: Female Functional Status Question Answer Note LastModified by Organizat ion Details LastModified Time Do you use any illicit or recreational drugs? No [email or web address] Information not available 02/07/2022 Do you or have you ever used any other forms of tobacco or nicotine? No [email or web address] Information not available 06/28/2023 What is your level of alcohol consumption? None [email or web address] Information not available 09/20/2017 Do you or have you ever used smokeless tobacco? Never used smokeless tobacco [email or web address] Information not available 02/07/2022 Are you currently employed? 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 Never used electronic cigarettes [email or web address] Information not available 02/07/2022 What is your exercise level? Heavy Information [...] influenza, unspecified formulation 3 completed Not Available [facility] 01/17/2011 05:21:07 Influenza, split virus, trivalent, preservative 1 completed Not Available [facility] 03/21/2019 02:31:48 pneumococcal polysaccharide PPV23 1 completed Not Available [facility] 03/21/2019 02:14:31 influenza, unspecified formulation 4 completed Not Available [facility] 01/17/2011 05:21:07 Td(adult) unspecified formulation 3 completed Not Available [facility] 01/17/2011 05:21:07 influenza, unspecified formulation 5 completed Not Available [facility] 01/17/2011 05:21:29 influenza, unspecified formulation 7 completed Not Available [facility] 01/17/2011 05:21:55 influenza, unspecified formulation 8 completed Not Available [facility] 01/17/2011 05:21:55 Influenza, split virus, trivalent, PF 3 completed Not Available [facility] 03/21/2019 02:18:59 Tdap 3 completed Not Available [facility] 03/21/2019 02:34:58 Influenza, split virus, trivalent, preservative 2 completed Not Available [email or web address] 02/07/2022 15:35:28 Influenza, split virus, quadrivalent, PF 8 completed Not Available [facility] 03/21/2019 02:34:54 Influenza, split virus, trivalent, preservative 0 completed Not Available [facility] 03/21/2019 02:37:14 Pneumococcal conjugate PCV 13 0 completed Suad Pineda RN [facility], [facility] 11/06/2019 11:27:05 Influenza, split virus, quadrivalent, preservative 0 completed Not Available [email or web address] 02/07/2022 15:35:28 Influenza, split virus, quadrivalent, PF 2 completed Ria Keith MD [address] [place] [address], [address], [facility] 12/03/2021 20:19:22 Td (adult), 2 Lf tetanus toxoid, preservative free, adsorbed 3 completed Ria Keith MD [address] [place] [address], [address], [facility] 06/24/2022 19:16:30 Influenza, split virus, quadrivalent, PF 3 completed Alanna Brice LPN [facility], [facility] 12/16/2022 10:18:58 COVID-19, mRNA, LNP-S, PF, 30 mcg/0.3 mL dose 1 completed [facility] 11/22/2023 12:18:23 COVID-19, mRNA, LNP-S, PF, 30 mcg/0.3 mL dose 1 completed Melissa Dunn [facility] 12/07/2020 14:33:59 Influenza, split virus, quadrivalent, preservative 1 completed [facility]isela Adams [facility] 11/22/2023 12:18:23 COVID-19, mRNA, LNP-S, bivalent, PF, 30 mcg/0.3 mL dose 2 completed [facility]isela Adams [facility] 11/22/2023 12:18:23 zoster recombinant 2 completed Gisela Adams [facility] 11/22/2023 12:18:23 zoster recombinant 2 completed [facility]isela Adams [facility] 11/22/2023 12:18:23 COVID-19, mRNA, LNP-S, PF, 30 mcg/0.3 mL dose 1 completed [facility]isela Adams [facility] 11/22/2023 12:18:23 COVID-19, mRNA, LNP-S, PF, 30 mcg/0.3 mL dose 1 completed [facility]isela Adams [facility] 11/22/2023 12:18:23 COVID-19, mRNA, LNP-S, PF, 30 mcg/0.3 mL dose 1 completed Gisela Adams [facility] 11/22/2023 12:18:23 COVID-19, mRNA, LNP-S, PF, 30 mcg/0.3 mL dose, lara-sucrose 2 completed Gisela Adams [facility] 11/22/2023 12:18:23 COVID-19, mRNA, LNP-S, PF, lara-sucrose, 30 mcg/0.3 mL 3 completed [facility] 11/22/2023 12:18:23 COVID-19, mRNA, LNP-S, PF, 50 mcg/0.5 mL 4 completed [facility] 11/22/2023 12:18:23 Influenza, split virus, trivalent, preservative 9 completed [facility] 11/22/2023 12:18:23 Influenza, split virus, quadrivalent, PF 1 completed [facility] 11/22/2023 12:18:23 Influenza, MDCK, trivalent, PF 4 completed [facility] 11/22/2023 12:18:23 Past Encounters Encounter ID Performer Location Encounter Start Date Encounter Closed Date Diagnosis/Indication Diagnosis SNOMED-CT Code Diagnosis ICD10 Code Diagnosis Note [id number] Ria Keith MD , [facility], OFFICE [address] [place] [address] 03/06/2000 16:45:00 03/24/2008 02:02:29 [id number] Leandro Rosario i, PT Physical Therapy, [address] [address] 03/21/2000 16:30:00 03/24/2008 02:02:29 [id number] Leandro Rosario i, PT Physical Therapy, [address] [address] 04/01/2000 17:30:00 03/24/2008 02:02:29 [id number] Leandro Rosario i, PT Physical Therapy, [address] [address] 04/24/2000 17:00:00 03/24/2008 02:02:29 [id number] Leandro Rosario i, PT Physical Therapy, [address] [address] 05/01/2000 17:00:00 03/24/2008 02:02:29 [id number] Ria Keith MD , [facility], [address]ICE [address] [place] [address] 05/08/2000 16:45:00 03/24/2008 02:02:29 [id number] Leandro Rosario i, PT Physical Therapy, [facility] [address] 05/22/2000 16:30:00 03/24/2008 02:02:29 [id number] Leandro Rosario i, PT Physical Therapy, [facility] [address] [facility] [place] [address] 05/30/2000 17:00:00 03/24/2008 02:02:29 [id number] Leandro Rosario i, PT Physical Therapy, [facility] [address] 04/10/2000 17:00:00 03/24/2008 02:02:29 [id number] Bruce Araujo MD , [facility] [address] 05/20/2000 14:00:00 03/24/2008 02:02:29 [id number] Ria Keith MD , [facility], OFFICE [address] [facility] [place] [address] 08/19/2000 16:45:00 03/24/2008 02:02:29 [id number] Leandro Rosario i, PT [address], [address] [address] 06/13/2000 17:00:00 03/24/2008 02:02:29 [id number] Leandro Guerral i, PT Physical Therapy, [address] [address] 09/18/2000 16:30:00 03/24/2008 02:02:29 [id number] Leandro Blantonvall i, PT Physical Therapy, [address] [address] 09/30/2000 16:30:00 03/24/2008 02:02:29 [id number] Leandro Guerral i, PT Physical Therapy, [address] [address] 10/07/2000 16:30:00 03/24/2008 02:02:29 [id number] Ria Keith MD , [facility] [address] [facility] [address] 10/09/2000 16:15:00 03/24/2008 02:02:29 [id number] Leandro Rosario i, PT Physical Therapy, [facility] [address] [place] [address] 11/14/2000 17:30:00 03/24/2008 02:02:29 [id number] Niru Ventura NP , [facility], [address] [place] [address] 11/27/2000 13:30:00 03/24/2008 02:02:29 [id number] Leandro Rosario i, PT Physical Therapy, [facility] [address] [place] [address] 12/05/2000 17:30:00 03/24/2008 02:02:29 [id number] Leandro Rosario i, PT Physical Therapy, [address] [address] 12/26/2000 17:00:00 03/24/2008 02:02:29 [id number] Ria Keith MD , [facility], [address] [place] [address] 12/30/2000 16:45:00 03/24/2008 02:02:29 [id number] Ria Keith MD , [facility], [address] [place] [address] 01/13/2001 16:45:00 03/24/2008 02:02:29 [id number] [facility] RADIOLOGY [facility] , [facility] [address] [place] [address] 01/07/2001 16:45:00 03/24/2008 02:02:29 [id number] Ria Keith MD , [facility], [address] [place] [address] 01/29/2001 16:45:00 03/24/2008 02:02:29 [id number] Ria Keith MD , [facility], [address] [place] [address] 02/19/2001 16:45:00 03/24/2008 02:02:29 [id number] Ria Keith MD , [facility], [address] [place] [address] 03/14/2001 16:45:00 03/24/2008 02:02:29 [id number] Ria Keith MD , [facility], [address] [place] [address] 04/11/2001 16:45:00 03/24/2008 02:02:29 [id number] Ria Keith MD , [facility], [address] [place] [address] 05/16/2001 16:45:00 03/24/2008 02:02:29 [id number] Ria Keith MD , [facility], [address] [place] [address] 06/26/2001 16:45:00 03/24/2008 02:02:29 [id number] Leandro Rosario i, PT Physical Therapy, [facility] [address] [place] [address] 07/03/2001 15:30:00 03/24/2008 02:02:29 [id number] Ria Keith MD , [facility], [address] [place] [address] 07/29/2001 16:23:54 03/24/2008 02:02:29 [id number] Ria Keith MD , [facility], [address] [place] [address] 08/13/2001 14:46:16 03/24/2008 02:02:29 [id number] Ria Keith MD , [facility], [address] [place] [address] 08/29/2001 16:22:24 03/24/2008 02:02:29 [id number] Ria Keith MD , [facility], [address] [place] [address] 10/08/2001 16:20:00 03/24/2008 02:02:29 [id number] Ria Keith MD , [facility], [address] [place] [address] 12/10/2001 16:47:55 03/24/2008 02:02:29 [id number] Ria Keith MD , [facility], [address] [place] [address] 01/22/2002 08:03:24 03/24/2008 02:02:29 [id number] Sarah Burt NP FP, [facility], [address] [place] [address] 02/23/2002 07:47:32 03/24/2008 02:02:29 [id number] Ria Ketih MD FP, [facility], [address] [place] [address] 03/24/2002 11:22:54 03/24/2008 02:02:29 [id number] [facility] - [facility] [address] [place] [address] 04/15/2002 08:08:21 03/24/2008 02:02:29 [id number] Ria Keith MD , [facility], [address] [place] [address] 05/05/2002 16:45:11 03/24/2008 02:02:29 [id number] [facility] - [address] [address] 06/02/2002 16:34:56 03/24/2008 02:02:29 [id number] Rai Keith MD , [facility], [address] [place] [address] 06/09/2002 16:51:27 03/24/2008 02:02:29 [id number] Ria Keith MD , [facility], [address] [place] [address] 08/04/2002 16:21:15 03/24/2008 02:02:29 [id number] Sarah Burt NP , [facility], [address] [place] [address] 08/10/2002 10:26:53 03/24/2008 02:02:29 [id number] Ria Keith MD , [facility], [address] [place] [address] 08/26/2002 15:22:18 03/24/2008 02:02:29 [id number] Ria Keith MD , [facility], [address] [place] [address] 10/26/2002 09:33:30 03/24/2008 02:02:29 [id number] Ria Keith MD , [facility], [address] [place] [address] 12/03/2002 08:02:47 12/04/2002 14:49:25 [id number] [facility] , [facility], [address] [place] [address] 12/13/2002 11:41:43 12/17/2002 13:06:56 [id number] Ria Keith MD , [facility], [address] [place] [address] 01/21/2003 12:05:53 01/22/2003 13:32:08 [id number] Ria Keith MD , [facility], [address] [place] [address] 04/07/2003 12:16:18 03/24/2008 02:02:29 [id number] Ria Keith MD , [facility], [address] [place] [address] 07/01/2003 15:59:42 07/02/2003 09:29:13 [id number] Ria Keith MD , [facility], [address] [place] [address] 09/08/2003 09:39:59 09/08/2003 15:12:26 [id number] Niru Ventura NP , [facility], [address] [place] [address] 11/18/2003 14:56:17 11/19/2003 09:06:08 [id number] Ria Keith MD , [facility], [address] [place] [address] 11/25/2003 08:26:48 11/26/2003 11:13:58 [id number] Ria Keith MD , [facility], [address] [place] [address] 01/10/2004 09:31:11 01/10/2004 17:15:41 [id number] Ria Keith MD , [facility], [address] [place] [address] 01/24/2004 12:45:28 01/25/2004 14:15:55 [id number] LUCERO Be , [facility], [address] [place] [address] 02/03/2004 09:29:27 02/03/2004 16:50:16 [id number] [facility] - [facility] [address] [place] [address] 02/03/2004 10:26:42 02/03/2004 10:26:58 [id number] Ria Keith MD , [facility], [address] [place] [address] 02/29/2004 12:13:15 02/29/2004 17:20:22 [id number] [facility] - [address] [address] 02/29/2004 13:15:11 02/29/2004 13:15:53 [id number] Ria Keith MD FP, [facility], [address] [place] [address] 04/11/2004 15:53:06 04/12/2004 08:52:04 [id number] Leandro Pike , PT Physical Therapy, [address] [address] 04/19/2004 16:55:35 04/24/2004 08:40:19 [id number] Leandro Pike , PT Physical Therapy, [address] [address] 04/26/2004 07:23:55 04/27/2004 10:48:53 [id number] Leandro Pike PT Physical Therapy, [address] [address] 05/03/2004 08:01:08 05/03/2004 16:23:31 [id number] Leandro Pike , PT Physical Therapy, [address] [address] 05/05/2004 15:23:07 05/05/2004 16:10:15 [id number] Leandro Pike , PT Physical Therapy, [address] [address] 05/10/2004 07:41:55 05/11/2004 08:57:45 [id number] Leandro Pike PT Physical Therapy, [address] [address] [address] 05/15/2004 07:58:11 05/15/2004 15:14:52 [id number] Leandro Pike , PT Physical Therapy, [address] [address] 05/19/2004 08:20:29 05/19/2004 14:47:57 [id number] Ria Keith MD , [facility], [address] [place] [address] 6 10/12/2004 16:38:16 03/24/2008 02:02:29 [id number] Nayeli Covarrubias OD Eye Care, [facility] [address] [place] [address] 6 12/28/2004 08:42:19 03/24/2008 02:02:29 [id number] [facility] FLU CLINIC FP, [facility], [address] [place] [address] 01/17/2005 09:57:05 01/17/2005 09:57:11 [id number] [facility] Radiology , [facility] [address] [place] [address] 04/05/2005 16:24:23 04/06/2005 09:24:54 [id number] Ria Keith MD , [facility], [address] [place] [address] 6 08/17/2005 11:20:29 03/24/2008 02:02:29 [id number] [facility] , [facility] [address] [place] [address] 04/13/2006 10:56:38 04/15/2006 09:07:57 [id number] [facility] FLU [facility]IC , [facility], [address] [place] [address] 6 12/25/2006 15:38:52 12/25/2006 15:38:55 [id number] LUCERO Jerome , [facility], [address] [place] [address] 6 03/20/2007 08:51:22 03/24/2008 02:02:29 [id number] Ria Keith MD , [facility], [address] [place] [address] 6 04/02/2007 11:13:22 03/24/2008 02:02:29 [id number] [facility] RADIOLOGY Technologi st Radiology , [facility] [address] [place] [address] 05/05/2007 14:25:21 05/06/2007 08:32:18 [id number] Tarah Fallon M.D . , [facility], [address] [place] [address] 05/05/2007 14:00:08 03/24/2008 02:02:29 [id number] [facility] Radiology , [facility] [address] [place] [address] 06/04/2007 10:55:33 06/05/2007 09:31:37 [id number] [facility] FLU [facility] FP, [facility], [address] [place] [address] 12/03/2007 11:59:56 12/03/2007 12:08:38 [id number] LUCERO Be , [facility], [address] [place] [address] 6 05/24/2008 12:12:20 05/26/2008 09:04:28 [id number] Ria Keith MD , [facility], [address] [place] [address] 6 06/02/2008 11:28:18 06/03/2008 12:18:48 [id number] [facility] Radiology , [facility] [address] [place] [address] 6 06/26/2008 10:26:01 06/29/2008 13:10:59 [id number] Ria Keith MD , [facility], [address] [place] [address] 6 12/23/2008 14:26:27 12/27/2008 09:35:16 [id number] [facility] GRP LAB LAB - [facility] [address] [place] [address] 12/15/2008 07:22:05 12/15/2008 07:22:36 [id number] [facility] FLU [facility] FP, [facility], [address] [place] [address] 02/06/2009 08:39:33 02/06/2009 13:08:59 [id number] Ria Keith MD , [facility], [address] [place] [address] 6 09/06/2009 16:24:11 09/09/2009 09:24:43 [id number] [facility] SPIROMETRY CLINIC FP, [facility], [address] [place] [address] 6 10/12/2009 08:41:57 10/14/2009 09:18:40 [id number] [facility] Radiology , [facility] [address] [place] [address] 6 10/17/2009 07:14:38 10/19/2009 14:06:46 [id number] Ria Keith MD , [facility], [address] [place] [address] 6 11/14/2009 16:05:58 11/16/2009 10:45:01 [id number] Ria Keith MD , [facility], [address] [place] [address] 6 11/25/2009 13:39:09 11/30/2009 10:42:49 [id number] Leandro Pike , PT Physical Therapy, [address] [address] 11/28/2009 11:56:03 11/30/2009 08:02:51 [id number] Leandro Pike , PT Physical Therapy, [address] [address] 12/16/2009 12:33:25 12/19/2009 07:58:20 [id number] Leandro Pike , PT Physical Therapy, [address] [address] 12/23/2009 13:04:39 12/23/2009 13:54:55 [id number] Leandro Pike PT Physical Therapy, [address] [address] 12/30/2009 12:58:54 12/30/2009 14:06:02 [id number] Leandro Pike , PT Physical Therapy, [address] [address] 01/13/2010 12:01:06 01/13/2010 15:46:42 [id number] Sarah Burt NP , [facility], [address] [place] [address] 03/23/2010 11:58:50 03/23/2010 12:38:18 [id number] Ria Keith MD , [facility], [address] [place] [address] 6 03/27/2010 15:37:59 03/30/2010 11:00:52 [id number] [facility] RADIOLOGY Technologi st Radiology , [address] [address] 6 03/27/2010 16:10:26 03/28/2010 14:29:08 [id number] Bruce Araujo MD , [facility], [address] [place] [address] 6 04/26/2010 14:50:29 05/01/2010 12:36:51 [id number] Bhavin Lombardo MD , [facility], [address] [place] [address] 08/15/2010 17:09:16 08/16/2010 12:26:14 [id number] Ria Keith MD , [facility], [address] [place] [address] 6 08/28/2010 11:52:03 08/30/2010 14:50:13 [id number] [facility] FLU CLINIC FP, [facility], [address] [place] [address] 6 11/10/2010 07:20:21 11/10/2010 17:31:37 [id number] [facility] Radiology , [facility] [address] [place] [address] 6 11/24/2010 07:18:33 11/27/2010 13:47:46 [id number] Ria Keith MD , [facility], [address] [place] [address] 08/16/2011 12:03:07 08/16/2011 12:42:17 [id number] Ria Keith MD , [facility], [address] [place] [address] 10/22/2011 15:41:34 10/22/2011 17:07:36 [id number] Ger Sethi MD Radiology , [facility] [address] [place] [address] 6 11/30/2011 07:28:36 12/03/2011 09:10:56 [id number] Miguel A Sierra MD , [facility], [address] [place] [address] 6 03/14/2012 16:45:38 03/17/2012 11:52:00 [id number] Miguel A Sierra MD , [facility], [address] [place] [address] 03/19/2012 16:28:06 03/20/2012 10:15:44 [id number] Luanne Lozada NP , [facility], [address] [place] [address] 12/16/2012 06:09:15 12/16/2012 12:10:59 Influenza vaccine needed [id number] Shantel Marsh MD , [facility], [address] [place] [address] 12/31/2012 15:23:19 12/31/2012 17:06:01 Adult health examination [id number] see Risk Assessment and Lifestyle Change Counseling section above Healthy woman TDAP booster today Received flu shot already Follows with [facility] for Paps Normal mammogram yesterday Continue excellent exercise routine, healthy lifestyle Recheck FLP, screen for DM Counseling [id number] Administra tion of diphtheria, pertussis, and tetanus vaccine [id number] Intrinsic asthma 112320059 INTERMITTE NT Asthma- Based on history, physical assessment and peak flow the patients asthma is in control. Used rescue inhaler three times total last 12 months Rec annual flu shots Received pneumovax 2010 Will continue the present medication s and follow-up in 6 months. The asthma action plan has been discussed. The patient verbalizes understand ing medication use.. The patient is in agreement with this plan. Anterior knee pain 131190449 By hx, c/w OA. Has tried a friend's lidoderm patch and this is helpful.. Obtain xrays, rx for lidoderm patch but unsure if insurance will pay for this Mixed hyperlipidemia [id number] Very slightly above goal last draw, recheck FLP [id number] NADYA Frederick, [facility], [address] [place] [address] 05/26/2013 16:16:06 05/27/2013 09:59:42 Acute upper respiratory infection 45367634 Educated patient that URI is a viral illness of the upper airways. It is not bacterial and does not benefit from antibiotic s. Average duration of URI is 7-10 days but in a recent trial, treatment at 7-10 days of illness with antibiotic s, intranasal steroids, or placebo did not alter natural history at 3 weeks. Recommende d symptomati c treatments including NSAIDS, semi-uprig ht sleep position, antihistam lizzy at HS, limited course of nasal sympathomi metics and/or cough syrups, and nasal saline rinses with soft squeeze bottle or Neti pot. Return for fevers > 101 for 3 days, worsening sinus pain, or failure to resolve in 2-4 weeks. Asthma [id number] meds refilled, advised to use Albuterol MDI asdirected every 4 h while w/cough & not feeling well. [id number] Angella Kurtz NP , [facility], [address] [place] [address] 02/04/2015 16:28:05 02/04/2015 17:37:14 Adult health examination 478623872 Z00.00 49 year old here for routine PHA. QM up to date. 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 see Risk Assessment and Lifestyle Change Counseling section above Counseling 438642078 Z71 .9 Screening for malignant neoplasm of colon 769033095 Z12.11 Referral for a DIRECT booked colonoscop y. This patient is a healthy ASA Class 1 or 2 patient (only mild systemic disease), or a STABLE, well controlled insulin dependent diabetic. They do not have serious cardiac disease ie LA/angiopl asty within 1 year, symptomati c CHF; renal failure with CKD 4 or 5; take Coumadin, Plavix, Aggrenox, etc; nor take chronic narcotics. [Patients who take chronic narcotics should be referred to [facility] for a propofol procedure due to possible inability to sedate adequately with conscious sedation.] Knee pain 05919669 M25.5 62 mild . Inst to stop using bike for a little while and do another exercise (since this is when it bothers her). Substitute another exercise. Use ice prn. Refuses meds. Anemia 667912818 D64.9 history. Will check cbc Diabetes m ellitus screening 419358736 Z13.1 Uterine leiomyoma 819100 05 D25.9 sees insurance sales professional [id number] Leandro Pike , PT Physical Therapy, [address] [address] 02/18/2015 15:24:32 02/21/2015 09:04:03 Anterior knee pain 526025070 M25.561 M25.400 [id number] Bhavin Torre MD [facility], [address] [address] 03/11/2015 06:39:16 03/11/2015 15:29:22 [id number] Leandro Pike , PT Physical Therapy, [address] [address] 03/18/2015 16:35:00 03/21/2015 08:53:59 Anterior knee pain 274774350 M25.561 M25.226 [id number] Bhavin Lombardo MD , [facility], [address] [place] [address] 04/01/2015 16:32:40 04/01/2015 17:52:48 Anterior knee pain 867413918 M25.569 Foot pain 89418647 M79.6 73 [id number] Leandro Pike , PT Physical Therapy, [facility] [address] [place] [address] 04/08/2015 16:25:19 04/11/2015 07:11:51 Anterior knee pain 941708271 M25.561 M25.095 [id number] Leandro Pike , PT Physical Therapy, [facility] [address] [place] [address] 04/08/2015 17:22:10 04/08/2015 17:22:48 [id number] LUCERO Be , [facility], [address] [place] [address] 04/25/2015 15:19:17 04/25/2015 15:57:23 Pain of multiple joints 10962903 M25.50 [id number] Leandro Pike , PT Physical Therapy, [address] [address] 04/29/2015 16:13:14 05/02/2015 07:06:46 Anterior knee pain 157558540 M25.561 M25.219 [id number] Luanne Lozada NP , [facility], [address] [place] [address] 05/05/2015 16:29:21 05/05/2015 17:16:17 Rheumatoid arthritis 01896245 M06.9 [id number] Ria Keith MD , [facility], [address] [place] [address] 05/12/2015 16:19:23 05/12/2015 17:06:59 Rheumatoid arthritis 21759539 M06.9 DSICUSSED RA, rheum referral [id number] Leandro Zheng DPM Podiatry, [facility] [address] [place] [address] 05/17/2015 14:46:24 06/15/2015 16:26:49 Metatarsalgia 59123276 M77.41 Pronation of foot 738430 03 M21.6X9 [id number] Lyudmila Bradley MD Rheumatol ogy, [address] [address] 05/20/2015 14:10:08 05/21/2015 10:12:28 Rheumatoid arthritis 61982780 M05.79 I am quite certain that the patient does have sero-posit memo rheumatoid arthritis. She has had symptoms for about 2 months. There is basically symmetrica l small joint involvemen t in the hands and feet. Rheumatoid factor was highly positive. We discussed this diagnosis at length. We discussed the course of the disease, we discussed prognosis. I particular ly stressed that she does appear to have rather active rheumatoid and it is vital to treat this aggressive ly before she gets permanent joint damage, erosions etc. I presented an overview of treatment. We discussed specific treatments . Diagnostic ally, I would like to get baseline x-rays of her hands and feet. We need to check CCP antibody. We also need to get baseline labs for treatment including a baseline chest x-ray and labs including hepatitis B antigen. Therapeuti mary, she may continue on the ibuprofen as she is tolerating this and it helps a little bit. We definitely need a DMARD agent at this point. Methotrexa te would be the drug of choice.Dis cussed therapeuti c options. Use of methotrexa te discussed in detail including potential side effects, possible adverse effects of alcohol (she does not drink), need for regular lab monitoring . Provided patient with literature . No known history of hepatitis B or hepatitis C. Baseline labs and chest x-ray will be checked.. Start MTX 12.5 mg/wk 3 weeks, the 17.5 mg/wk. Foleate, leucovorin . She has been using a number of nutritiona l supplement s including omega-3 fatty acids, several other treatments . We discussed these. We discussed anti-infl ammatory diet . She should avoid any supplement that is reputed to stimulate the immune system. I will want to see her again in 4 weeks, sooner if needed. Knee pain 32168139 M25.5 61 M25.562 This patient has had more than a year of knee pain. The knee symptoms preceded the current inflammato ry joint symptoms by many months. The knee pains have characteri stics suggesting patellofe moral pain syndrome. She is worse going down stairs. She has some nocturnal pain. There are no signs of inflammati on. I explained that this problem, I believe, is separate from the rheumatoid arthritis. It needs to be treated with physical therapy. She is working on this. Anti-infla mmatory medication s (ibuprofen ) could be helpful. Use cold packs after exercise. [id number] Lyudmila Bradley MD Rheumatol [facility] [place] [address] [facility] [place] [address] 06/17/2015 15:50:13 06/17/2015 16:31:06 Rheumatoid arthritis 78041563 M05.79 Recent diagnosis of seropositi ve, CCP positive rheumatoid arthritis. She has been on relatively low doses of methotrexa te for the past 4 weeks and there has been no improvemen t. There still is definite synovitis at MCP joints and she has flexor tenosynovi tis particular ly index fingers, left more than right. We discussed again treatment. We need to allow more time for the methotrexa te to be effective and we also need to push the dosage if possible. Plan will be to continue at 17.5 mg next 3 weeks, then increase to 20 mg just before next visit in 5 weeks. We discussed future options in a general way. I emphasized the importance of aggressive treatment in a patient with high titer rheumatoid factor, CCP. Update labs today. Return in 5 weeks for reevaluati on. 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 Reviewed recent labs. No signs or symptoms of toxicity. Tolerating well. Continue monitor labs. Continue folate/calli covorin supplement ation. Anterior knee pain 49457 3006 M25.569 There are no signs of any active inflammati on at the knees today. Symptoms and findings seem consistent with patellofe moral pain. Treatment should be physical therapy, but apparently she has exhausted the current limits on therapy. Ibuprofen is helpful and at 600 mg 3 times a day, not excessive. No GI upset. [id number] LUCERO Be , [facility], [address] [place] [address] 06/30/2015 16:25:37 06/30/2015 17:57:44 Knee pain 03966507 M25.561 Rheumatoid arthritis 698 44666 M06.9 [id number] Leandro Pike , PT Physical Therapy, [facility] [address] [place] [address] 07/15/2015 17:15:15 07/18/2015 07:15:39 Anterior knee pain 861959483 M25.561 M25.181 [id number] Lyudmila Bradley MD Rheumatol [facility], [facility] [address] [facility] [place] [address] 07/26/2015 14:38:58 07/27/2015 07:27:44 Rheumatoid arthritis 88549897 M06.9 Recent diagnosis of seropositi ve, CCP positive rheumatoid arthritis. There has been definite symptomati c and some objective improvemen t on MTX, now just increased to 20 mg weekly. However, still describing 1-2 hrs AM stiffness espec hands. I will have her continue MTX at current 20/wk and re-eval in another 6-8 weeks. If still active synovitis at that time, will need to add add'l meds. Discussedp ric. Long-term drug therapy 124609045 Z79.899 Patient is on long-term methotrexa te. Reviewed recent labs. No signs or symptoms of toxicity. Tolerating well. Continue monitor labs. Continue folate/calli covorin supplement ation. Tenosynovi tis of fingers 421383991 M65.849 Flexor tenosynovi tis both index fingers. Right is more limited than left. We had discussed this at last visit. At this point I would advise trial of local injection. We will do this on the more symptomati c right index finger today. Discussed risks and benefits. Anterior knee pain 31283 3006 M25.569 There are no signs of any active inflammati on at the knees today. Symptoms and findings seem consistent with patellofe moral pain. Doing PT. Sees some improvemen t. Continue. [id number] Leandro Pike , PT Physical Therapy, [facility] [address] [place] [address] 07/29/2015 16:28:50 08/02/2015 08:08:28 Anterior knee pain 025176078 M25.561 M25.391 [id number] Ria Keith MD , [facility], [address] [place] [address] 08/10/2015 15:24:38 08/10/2015 16:21:15 Rheumatoid arthritis 51366936 M06.9 improved on methotrexa te Allergic a sthma without status asthmaticus 36753359 J45.909 asthma stable Mixed hyperlipidemia 267 436678 E78.2 [id number] Leandro Pike , PT Physical Therapy, [facility] [address] [place] [address] 08/12/2015 16:52:41 08/15/2015 07:17:16 Anterior knee pain 787253606 M25.561 M25.950 [id number] Lyudmila Bradley MD Rheumatol [facility], [address] [address] 09/26/2015 15:50:33 10/10/2015 07:41:49 Rheumatoid arthritis 58016077 M06.9 Onset Sero+ RA, now doing much better on MTX 20/wk. Tolerating very well.Discu ssed need to follow labs. Check today and then when she returns in 2 mo. Tenosynovi tis of fingers 415999458 M65.849 Flexor tenosynovi tis both index fingers. Right responded well to injection. She wants to hold off for now on the L injection. Long-term drug therapy 045529960 Z79.899 Patient is on long-term methotrexa te. Reviewed recent labs. No signs or symptoms of toxicity. Tolerating well. Continue monitor labs. Continue folate/calli covorin supplement ation. [id number] Lyudmila Bradley MD Rheumatol [facility], [address] [address] 11/28/2015 16:03:20 11/28/2015 16:41:44 Rheumatoid arthritis 38918611 M06.9 Onset Sero+ RA, now doing much better on MTX 20/wk. Tolerating very well.Much improved, but there is mild but definite swelling and tenderness R foot MTP's. It could be that ongoing treatment with MTX will calm this down.Has been doing treadmill walking and perhaps this is contributi ng (previousl y exercising by walking). Discussed. Discussed need to follow labs. Check today and then when she returns in 3 mo. Long-term drug therapy 563048692 Z79.899 Patient is on long-term methotrexa te. Reviewed recent labs. No signs or symptoms of toxicity. Tolerating well. Continue monitor labs. Continue folate/calli covorin supplement ation. Foot pain 30928924 M79.6 71 Mild but definite synovitis R foot 2d, 3d MTP's. Discussed try metatarsal mounds. Perhaps emphasize biking rater than treadmill exercise. [id number] Ria Keith MD , [facility], [address] [place] [address] 02/13/2016 16:14:43 02/13/2016 16:54:38 Rheumatoid arthritis 56698356 M06.9 improved on methotrexa te Allergic a sthma without status asthmaticus 19446758 J45.603 [id number] Lyudmila Bradley MD Rheumatol [address] [address] 02/28/2016 10:50:00 02/29/2016 07:28:48 Rheumatoid arthritis 48478821 M06.9 Onset Sero+ RA, now doing much better on MTX 20/wk. Tolerating very well.Much improved. Further improvemen t since last visit with less sxs at R foot MTP's. Foot inserts helped. Can try reducing MTX to 17.5 mg/wk. Discussed need to follow labs. Check today and then when she returns in 3 mo. Long-term drug therapy 610565861 79.899 Patient is on long-term methotrexa te. Reviewed recent labs. No signs or symptoms of toxicity. Tolerating well. Continue monitor labs. Continue folate/calli covorin supplement ation. [id number] Lyudmila Bradley MD Rheumatol [address] [address] 05/25/2016 14:16:59 05/28/2016 07:25:12 Rheumatoid arthritis 90711050 M06.9 Onset Sero+ RA, doing very well on MTX 17.5/wk. Tolerating very well.sxs at R foot MTP's. Foot inserts helped. Can try further reducing MTX to 15 mg/wk. If still doing will in 2 mo, further reduce to 12.5 mg. Discussed need to follow labs. Check today and then when she returns in 3 mo. Long-term drug therapy 682939300 Z79.899 Patient is on long-term methotrexa te. Reviewed recent labs. No signs or symptoms of toxicity. Tolerating well. Continue monitor labs. Continue folate/calli covorin supplement ation. [id number] Lyudmila Bradley MD Rheumatol [address] [place] [address] 08/24/2016 13:08:50 08/24/2016 13:33:58 Rheumatoid arthritis 45167345 M06.9 Onset Sero+ RA, doing very well on MTX 15/wk. Virtual remission. Tolerating very well. Can try further reducing MTX to 12.5 mg/wk. If still doing will in 2 mo, further reduce to 10 mg. Discussed need to follow labs. Check today and then when she returns in 3 mo. Long-term drug therapy 086283510 Z79.899 Patient is on long-term methotrexa te. Reviewed recent labs. No signs or symptoms of toxicity. Tolerating well. Continue monitor labs. Continue folate/calli covorin supplement ation. [id number] Ria Keith MD , [facility], [address] [place] [address] 09/20/2016 09:33:35 09/20/2016 10:01:44 Mixed hyperlipidemia 456441431 E78.2 continues high but not candidate for statin will work to improve diet Rheumatoid arthritis 698 85396 M06.9 improved on methotrexa te Allergic a sthma without status asthmaticus 21743641 J45.909 less active this year has not needed inhaler [id number] Lyudmila Bradley MD Rheumatol [address] [address] 11/16/2016 13:18:51 11/16/2016 13:46:07 Rheumatoid arthritis 97041833 M06.9 Onset Sero+ RA, doing very well on MTX 10/wk. Virtual remission. Tolerating very well. In another couple of months, can try further reducing MTX to 7.5 mg/wk. Overdue for labs. Get today. Return 4 mo and perhaps further taper off MTX at that time. Long-term drug therapy 484347609 Z79.899 Patient is on long-term methotrexa te. Reviewed recent labs. No signs or symptoms of toxicity. Tolerating well. Continue monitor labs. Continue folate/calli covorin supplement ation. [id number] Lyudmila Bradley MD Rheumatol [address] [address] 03/15/2017 14:18:15 03/15/2017 15:59:15 Rheumatoid arthritis 97057565 M06.9 Onset Sero+ RA about 2 years ago. She has remained in remission on lower and lower doses of MTX. She is now only takeing 7.5 mg/wk. Discussed that it may be possible for her to taper off the MTX entirely. There is a risk that she may flare-up, but it seems as if she is in full remission. Try reducing MTX to 5 mg/wk for 2 mo, then 2.5 for 1 mo, than stop. Discussed what to watch for. She had prominent AM stiffness in hands, so if this begins to recur, contact me at once and we will re-institu te MTX, probably at her peak dose of 20 mg/wk. [id number] MD LULA Camarena, [facility], [address] [place] [address] 06/27/2017 16:36:01 06/28/2017 10:40:27 Adult health examination 122190235 Z00.00 see Risk Assessment and Lifestyle Change Counseling section above Counseling 142263109 Z71 .9 Depression screening 171 918298 Z13.89 depression screening tool administer ed, entered into emr, scored and discussed, time greater than 7.5 minutes Rheumatoid arthritis 698 62573 M06.9 improved in remission [id number] LEE ANN Pederson, [facility], [address] [place] [address] 07/31/2017 07:26:21 07/31/2017 07:59:27 Pain in left knee 3067477970 84015 M25.562 Rheumatoid arthritis 698 64236 M06.9 in remission - advised to notify Dr Bradley if finger pain and stiffness worsens. [id number] LEE ANN Pederson, [facility], [address] [place] [address] 08/13/2017 09:40:05 08/16/2017 16:27:50 Otitis media [id number] H66.91 suggest probiotics , work release note. Exacerbati on of intermittent asthma [id number] J45.21 REsume inhalers - advised re use and care. RTC if sx persist or increase - prednisone not indicate today but pt aware to call. Acute uppe r respiratory infection 94059184 J06.9 sx care reviewed. No work until 24hr afebrile. [id number] Leandro Pike , PT Physical Therapy, [address] [address] 08/16/2017 16:20:29 08/19/2017 09:39:51 Pain in left knee [id number] 72092 M25.562 52 year old female with findings most consistent with left knee pain with lateral joint line irritation . Patient has significan t functional limitation in their activities of daily living and exercise capacity. Skilled physical therapy is needed to safely and progressiv priscilla address impairment s and functional limitation s as outlined below. Patient Goals: Be able to exercise without knee pain and climb stairs without knee pain. Clinical Goals: 1. Demonstrat e symmetric pain free active, passive and resisted motions of the knee. 2. Demonstrat e sufficient muscular endurance to meet functional demands. Treatment Plan: Patient to return for 8 visits over 12 weeks. We expect significan t change in pain, impairment and function in this time frame. Treatment to Include: Therapeuti c exercise and manual therapy [id number] Leandro Pike , PT Physical Therapy, [address] [address] 08/23/2017 10:48:52 08/23/2017 13:11:39 Pain in left knee [id number] 00728 M25.562 Patient Goals: Be able to exercise without knee pain and climb stairs without knee pain. Clinical Goals: 1. Demonstrat e symmetric pain free active, passive and resisted motions of the knee. 2. Demonstrat e sufficient muscular endurance to meet functional demands. Treatment Plan: Patient to return for 8 visits over 12 weeks. We expect significan t change in pain, impairment and function in this time frame. Treatment to Include: Therapeuti c exercise and manual therapy [id number] Leandro Pike , PT Physical Therapy, [address] [address] 08/30/2017 10:00:26 08/30/2017 11:40:46 Pain in left knee [id number] 49223 M25.562 Patient Goals: Be able to exercise without knee pain and climb stairs without knee pain. Clinical Goals: 1. Demonstrat e symmetric pain free active, passive and resisted motions of the knee. 2. Demonstrat e sufficient muscular endurance to meet functional demands. Treatment Plan: Patient to return for 8 visits over 12 weeks. We expect significan t change in pain, impairment and function in this time frame. Treatment to Include: Therapeuti c exercise and manual therapy [id number] Lyudmila Bradley MD Rheumatol ogy, [facility] [address] [facility] [place] [address] 09/20/2017 10:55:53 09/20/2017 15:36:15 Flexor tenosynovitis of finger 904233045 M65.841 Mild flexor tenosynovi tis R ring finger. No associated trigger phenom.Thi s could be sign of RA recurrence , but sxs and findings quite mild.No specific treatment today. I will need to re-eval if progresses or new sxs.Local steroid injection would be Tx of choice, but she is needle phobic and unlikely to consent. Rheumatoid arthritis 698 49557 M06.9 Onset Sero+ RA about 2 years ago. She has remained in remission on lower and lower doses of MTX. Tapered off MTX entirely 4 mo ago. Possibly, RA starting to recur with mild tendinitis R ring finger. Discussed what to watch for. She had prominent AM stiffness in hands, so if this begins to recur, contact me at once and we will re-institu te MTX, probably at her dose of 15 mg/wk (peak dose was 20mg). [id number] Leandro Pike , PT Physical Therapy, [address] [address] 09/27/2017 14:22:29 09/30/2017 09:56:16 Pain in left knee [id number] 91085 M25.562 Patient Goals: Be able to exercise without knee pain and climb stairs without knee pain. Clinical Goals: 1. Demonstrat e symmetric pain free active, passive and resisted motions of the knee. 2. Demonstrat e sufficient muscular endurance to meet functional demands. Treatment Plan: Patient to return for 8 visits over 12 weeks. We expect significan t change in pain, impairment and function in this time frame. Treatment to Include: Therapeuti c exercise and manual therapy [id number] Louise Harp MD Sports Medicine, [address] [address] 10/17/2017 09:50:51 10/17/2017 10:35:31 Knee pain [id number] M25.562 Felisha is a 52-year-ol d female with left knee pain that I feel is due to either distal IT band friction syndrome versus lateral meniscal patholog The discomfort is localized to the lateral joint line as well as distal IT band on exam. She does not have a joint effusion or mechanical symptoms concerning for a larger or unstable meniscal tear. I reviewed all this with her today in the office as well as discussing treatment options. We discussed continued conservati ve management with physical therapy and the use of NSAIDs as well as considerat ion of injection therapy. She has declined a corticoste roid injection today and this is not something she wishes to pursue at this time. She has been using NSAIDs but states she only takes 200-400 mg of ibuprofen at a time and I did advise that she can take up to 600 mg 3 times a day. I did advise taking this with food to avoid stomach upset. At this point she will return to physical therapy for continued treatment and I advised that she concentrat e on IT band stretching to see if this helps with her symptoms. I did ask that she obtain weightbear ing x-rays after the office visit to evaluate for any bony pathology contributi ng to her discomfort . She will follow-up with me in 8 weeks for reevaluati on if she is having persistent pain. [id number] Ria Keith MD , [facility], [address] [place] [address] 12/02/2017 08:12:21 12/06/2017 15:19:15 Active or passive immunization [id number] Z23 [id number] Ria Keith MD , [facility], [address] [place] [address] 12/26/2017 15:28:21 01/22/2018 14:30:32 Mixed hyperlipidemia 367563323 E78.2 continues high but not candidate for statin will work to improve diet [id number] Lyudmila Bradley MD Rheumatol jonathan, [facility] [address] [place] [address] 03/14/2018 14:00:04 03/14/2018 14:26:14 Rheumatoid arthritis 48383651 M06.9 Onset Sero+ RA about 3 years ago. She has remained in remission off all meds. Today, very mild carpal tunnel sxs R wrist, but this could well be related to keyboardin g, and it has improved since changing keyboard height etc. For now, looks to be in remission. Follow up 1 year, or sooner should any sxs begin to recur. Carpal jagdeep karlene syndrome 22049489 G56.01 Today, very mild carpal tunnel sxs R wrist, but this could well be related to keyboardin g, and it has improved since changing keyboard height etc.No signs of synovitis at the wrist. No treatment. Splint if needed. [id number] Ria Keith MD , [facility], [address] [place] [address] 06/30/2018 09:01:33 06/30/2018 10:01:26 Adult health examination 989446266 Z00.00 see Risk Assessment and Lifestyle Change Counseling section above Counseling 530844980 Z71 .9 Depression screening 171 072874 Z13.89 depression screening tool administer ed, entered into emr, scored and discussed, time greater than 7.5 minutes Hand pain 97750672 M79.6 41 [id number] Georgina Solares, OT Physical Therapy, [address] [address] 07/10/2018 16:18:39 07/11/2018 15:58:18 Hand pain 61869259 M79.641 M79.280 [id number] Georgina Solares, OT Physical Therapy, [address] [address] 07/31/2018 08:29:36 07/31/2018 16:11:45 Hand pain 97852161 M79.641 M79.404 [id number] Georgina Solares, OT Physical Therapy, [address] [address] 08/28/2018 11:13:24 08/28/2018 13:44:05 Hand pain 07220954 M79.641 M79.004 [id number] Georgina Solares, OT Physical Therapy, [address] [address] 09/11/2018 10:28:03 09/12/2018 09:46:17 Hand pain 33117996 M79.641 M79.635 [id number] Georgina Solares, OT Physical Therapy, [address] [address] 09/18/2018 10:21:59 09/18/2018 13:07:23 Hand pain 84998450 M79.641 M79.116 [id number] Lyudmila Bradley MD Rheumatol [address] [address] 09/26/2018 13:26:14 09/29/2018 11:23:11 Rheumatoid arthritis 53379357 M06.9 Onset Sero+ RA about 3 years ago. She has remained in remission off all meds. Today, flexor tendinitis R 3d and 4th fingers. This does not necessaril y relate to RA. (She spends 2 hrs/d gripping handlebar of exercise bike.) For RA, seems to be in remission. Follow up 6-12 month, or sooner if needed. Flexor ten osynovitis of finger 810131541 M65.841 Flexor tenosynovi tis R middle andring finger. No associated trigger phenom.Thi s does not necessaril y relate to RA. (She spends 2 hrs/d gripping handlebar of exercise bike.) She has been seen in Hand Therapy with some mild improvemen t but has lingering sxs. Consented to trial local injection. Also discussed padding handlebars and gripping less tightly. [id number] Georgina Solares, OT Physical Therapy, [address] [address] 10/09/2018 10:08:43 10/09/2018 11:10:19 Hand pain 35600887 M79.641 M79.831 [id number] Lyudmila Bradley MD Rheumatol [address] [address] 04/27/2019 12:55:34 04/27/2019 13:49:46 Rheumatoid arthritis 33804119 M06.9 Onset Sero+ RA about 4 years ago. She has remained in remission off all meds. Today, flexor tendinitis R 3d and 4th fingers. This does not necessaril y relate to RA. (She spends 2 hrs/d gripping handlebar of exercise bike.) For RA, seems to be in remission. Follow up 6-12 month, or sooner if needed. Will update labs (to be done in June). Will also update x ray to be sure no erosive disease. Menopausal and postmenopausal disorders 737282088 N95.9 post menopausal .Never has had BMD scan. Order. Synovitis/ tenosynovit is - hand 697755623 M65.842 L middle finger flexor tendinitis (no triggering ).For local injection today. [id number] Miranda Vasquez MD Rheumatol [address] [address] 10/26/2019 09:25:41 10/27/2019 07:42:12 Rheumatoid arthritis 31079268 M06.9 With mild activity in her left 4th mcp or flexor tendon. Patient is also on motrin every night 600 mg. I will check labs. Restart methotrexa te at 10 mg/week, daily folic acid. Patient to decrease motrin to 400 mg daily, and after 4-6 weeks, try to wean it down. Side effects of motrin discussed with patient. 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 Side effects of methotrexa te discussed with the patient, including but not limited to: allergic reaction, cytopenias , elevated liver enzymes, gastrointe stinal discomfort , lung disease, malignanci es, oral ulcers, hair loss. Patient counselled that she will need regular blood testing to monitor for the side effects. Patient verbalized understand ing. Patient to have the flu shot in the fall. Patient to get PCV 13. [id number] Ria Keith MD , [facility], [address] [place] [address] 11/06/2019 11:03:22 11/06/2019 14:49:30 Active or passive immunization 640745569 Z23 [id number] Miranda Vasquez MD Rheumatol [address] [address] 01/25/2020 08:03:38 01/25/2020 10:02:04 Rheumatoid arthritis 72872412 M06.9 Did much better after she restarted methotrexa te, continue current dose of 10 mg/week, she is off motrin. Patient got the flu and the pneumonia shot. RTC in 3 months. Monitor labs for disease activity and medication toxicity. Osteopenia 905488610 M85 .80 FRAX score not elevated.C alcium and vitamin D.Weight bearing exercises. She is doing zulma 5 times a week, 1-1.5 hours.Coun selled to be careful and avoid falls. [id number] Miranda Vasquez MD Rheumatol [facility], [address] [address] 04/25/2020 07:50:29 04/25/2020 10:46:39 Rheumatoid arthritis 01751066 M06.9 Doing well. Continue methotrexa te 10 mg/week. Increase folic acid to 2 mf daily because of macrocytos is. Patient is off motrin. Patient got the flu and the pneumonia shot. COVID vaccine discussed. RTC in 3 months. Monitor labs for disease activity and medication toxicity. Osteopenia 691718350 M85 .80 FRAX score not elevated. Calcium and vitamin D. Weight bearing exercises. She is doing zulma 5 times a week, 1-1.5 hours. Counselled to be careful and avoid falls. [id number] Ria Keith MD FP, [facility], [address] [place] [address] 05/02/2020 15:21:36 05/13/2020 16:20:41 Adult health examination 924869939 Z00.00 see Risk Assessment and Lifestyle Change Counseling section above Counseling 089997903 Z71 .9 including cardiovasc ular risk reduction counseling Depression screening 171 924725 Z13.89 depression screening tool administer ed, entered into emr, scored and discussed, time greater than 7.5 minutes Screening for alcohol abuse 062817073 Z13.39 Mixed hyperlipidemia 267 795429 E78.2 Cholestero l is at goal Continue to work on diet and exercise as discussed Rheumatoid arthritis 698 14073 M06.9 improved in remission [id number] Ria Keith MD , [facility], [address] [place] [address] 06/27/2020 13:28:44 06/27/2020 14:06:49 Urinary tract infectious disease 27631208 N39.0 Patient instructed to push fluids, to follow up for persistent or worsening symptoms or fever or back pain. Urinary symptoms 3790208 08 R39.9 Sensation of incomplete voiding x 4 days. UA WNL. Denies dysuria. Suspect kidney stone. Does have left low back and abominal pain. Denies fever/chil ls. Will treat presumptiv priscilla w/ flomax. Will order KUB and ultrasound of kidneys. STAT referral to urology. Will send culture to r/o infection. F/u in 1 week or sooner if sxs worsen. If pain worsens seek care at ED. Push fluids. Pt. agrees to plan. [id number] Ria Keith MD , [facility], [address] [place] [address] 06/30/2020 10:24:18 07/01/2020 12:45:29 Increased frequency of urination 014734663 R35.0 Suspect overactive bladder. Improving Now feels urge to urinate every 3-4 hours. Still denies dysuria and incontinen ce. UA, culture WNL. Post void residual WNL KUB WNL - no stones Here today for pelvic exam to r/o prolapse. Urology visit next week. [facility] visit 07/21. Pelvic exam WNL today. No prolapse noted. Vaginal tone normal. Will also discuss at upcoming appt. w/ rhuematolo gy. Discussed avoiding food/drink s that irritate the bladder such as caffeine, ETOH, etc. Uterine leiomyoma 385731 05 D25.9 KUB did show 1.8 cm fibroid in left uterus which pt. is already aware of. Does have occasional spotting, will f/u w/ [facility]. [id number] Miranda Vasquez MD Rheumatol [facility], [facility] [address] [place] [address] 07/21/2020 07:52:34 07/21/2020 18:12:14 Rheumatoid arthritis 14712466 M06.9 Doing well. Continue methotrexa te 10 mg/week. Monitor as patient has increased LFTs (as below). Increase folic acid to 3 mg daily because of macrocytos is. Patient is off motrin. Patient got the flu and the pneumonia shot and the COVID vaccine. RTC in 3 months. Monitor labs for disease activity and medication toxicity (Standing orders) Osteopenia 519657082 M85 .80 FRAX score not elevated. Calcium and vitamin D. Weight bearing exercises. She is doing zulma 5 times a week, 1-1.5 hours. Counselled to be careful and avoid falls. Abnormal l iver function 77951345 K76.89 Repeat and monitor. Patient is on mtx. Adjust treatment depending on results. [id number] Miranda Vasquez MD Rheumatol [facility], [facility] [address] [place] [address] 11/03/2020 14:55:26 11/03/2020 15:35:04 Rheumatoid arthritis 63207591 M06.9 Doing well. Since the liver enzymes are consistent ly borderline elevated, I will decrease methotrexa te to alternatin g doses of 10mg/7.5 mg. Patient verbalizes understand ing. Continue folic acid 3mg daily. Patient is off motrin. Patient got the flu and the pneumonia shot and the COVID vaccine.CO VID booster discussed. Patient to hold methotrexa te one week after her booster. RTC in 4 months. Monitor labs for disease activity and medication toxicity (Standing orders)Ida ck labs in 6 weeks. Osteopenia 048641182 M85 .80 FRAX score not elevated. Calcium and vitamin D. Weight bearing exercises. She is doing zulma 5 times a week, 1-1.5 hours. Counselled to be careful and avoid falls. Abnormal l iver function 14551142 K76.89 Repeat and monitor. Patient is on mtxAdjust dose of methotrexa te as above. [id number] Ria Keith MD , [facility], [address] [place] [address] 12/07/2020 14:22:58 12/07/2020 15:09:33 Mixed hyperlipidemia 331510530 E78.2 Cholestero l iis high will work on doet and follow Continue to work on diet and exercise as discussed Rheumatoid arthritis 698 22397 M06.9 improved in remission on meds Asthma 319150290 J45.90 9 asthma much improved not need ign meds [id number] Miranda Vasquez MD Rheumatol [facility], [facility] [address] [place] [address] 03/09/2021 14:56:55 03/09/2021 15:36:39 Rheumatoid arthritis 90153059 M06.9 Doing well. Since the liver enzymes are consistent ly borderline elevated, I will decrease methotrexa te to 7.5 mg weekly. Patient verbalizes understand ing. Continue folic acid 3mg daily. Patient is off motrin. Patient got the flu and the pneumonia shot and the COVID booster. RTC in 4 months. Monitor labs for disease activity and medication toxicity (Standing orders) Osteopenia 466800155 M85 .80 FRAX score not elevated. Calcium and vitamin D. Weight bearing exercises. She is doing zulma 5 times a week, 1-1.5 hours. Counselled to be careful and avoid falls. Abnormal l iver function 71812064 K76.89 Repeat and monitor. Patient is on mtx. Adjust dose of methotrexa te as above. Long-term drug therapy 444300204 Z79.899 On methotrexa te.Continu e folic acid.Monit or labs. Patient to hold methotrexa te if fever or any sign of infection. [id number] Ria Keith MD , [facility], [address] [place] [address] 06/26/2021 15:43:57 07/13/2021 15:38:13 Adult health examination 656237088 Z00.00 see Risk Assessment and Lifestyle Change Counseling section above Counseling 896675344 Z71 .9 including cardiovasc ular risk reduction counseling Depression screening 171 856216 Z13.31 depression screening tool administer ed, entered into emr, scored and discussed, time greater than 7.5 minutes Screening for alcohol abuse 301517695 Z13.39 Mild inter mittent asthma 209593580 J45.20 (symptoms or bronchodil ator use at most two days per week) Based on history, physical assessment , and ACT, the patient's asthma is in control. Will continue the present medication s and follow up in 6 months. The asthma action plan has been discussed. The patient verbalizes understand ing medication use.. The patient is in agreement with this plan. Mixed hyperlipidemia 267 596125 E78.2 cholestero l is continued high but pt has not tolerated stating Continue to work on diet and exercise as discussed Rheumatoid arthritis 698 52320 M06.9 improved in remission on meds [id number] Jaiden Otero MD FP, [facility], [address] [place] [address] 07/20/2021 09:37:46 09/08/2021 08:18:59 Pain of right knee joint 8916040427 20724 M25.561 We discussed possible etiologies including sprain/str ain or a [place]'s cyst.Check xrays.PT eval.F/U with GM.Discuss ed rest, activity modificati on, ice/heat applicatio n, and NSAID/acet aminophen dosing as needed unless contraindi cated. [id number] Larissa islas, PT Physical Therapy, [address] [address] 08/10/2021 06:56:31 08/10/2021 08:17:17 Pain of right knee joint 3015853348 98994 M25.009 [id number] Larissa islas, PT Physical Therapy, [address] [address] 08/15/2021 17:18:18 08/16/2021 07:05:25 Pain of right knee joint 3526476240 14884 M25.871 [id number] Larissa islas, PT Physical Therapy, [facility] [address] [place] [address] 08/22/2021 17:24:11 08/22/2021 19:19:21 Pain of right knee joint 4037708635 53368 M25.846 [id number] Larissa islas, PT Physical Therapy, [address] [address] 08/29/2021 17:29:44 08/30/2021 12:48:12 Pain of right knee joint 4273722034 22026 M25.882 [id number] Louise Harp MD Sports Medicine, [address] [address] 08/30/2021 13:12:43 08/30/2021 13:39:58 Pain of right knee joint 3258345950 38620 M25.561 Felisha is a 56-year-ol d female with right knee pain that leaves due to underlying osteoarthr itis and a medial meniscal tear that occurred several weeks ago. I reviewed this diagnosis with her today as well as discussing treatment. Overall she is doing quite well with no effusion today and no mechanical symptoms currently on exam. She was able to reproduce a slight popping sensation with rapid knee extension but does not appear to have any overt locking or episodes of instabilit y. I have advised continued conservati ve management with physical therapy and the use of over-the-c ounter NSAIDs if needed. We discussed a possible corticoste roid injection in the future or potential surgery if she has persistent pain or increasing mechanical symptoms. She will plan to continue with her physical therapy exercises and follow up with me in 8 weeks for reevaluati on. I did advise that she contact me for a more urgent evaluation if she has increased swelling or any persistent locking episodes. [id number] Larissa islas, PT Physical Therapy, [address] [address] 09/19/2021 17:23:08 09/20/2021 06:54:08 Pain of right knee joint 0585373265 95014 M25.308 [id number] Larissa islas, PT Physical Therapy, [address] [address] 10/18/2021 13:49:57 10/18/2021 16:39:07 Pain of right knee joint 4920910418 64284 M25.705 [id number] Louise Harp MD Sports Medicine, [address] [address] 10/25/2021 13:01:06 10/25/2021 15:15:16 Pain of right knee joint 4981767602 01655 M25.561 Felisha is a 56-year-ol d female with right knee pain due to a presumed medial meniscal tear as well as potentiall y some underlying osteoarthr itis. Overall she has done quite well with physical therapy and currently is having minimal symptoms. We discussed the continued use of as needed NSAIDs as well as the possibilit y of a corticoste roid injection in the future. At this point she will continue with her home physical therapy exercise program and will follow up with me only as needed if she has increasing symptoms. [id number] Ria Keith MD , [facility], [address] [place] [address] 11/27/2021 16:24:22 12/05/2021 09:45:15 Mixed hyperlipidemia 508379507 E78.2 Cholestero l is at goal Continue to work on diet and exercise as discussed Hyperlipid emiaCholes terol level was slightly elevated in 06/2021.Con tinue to work on diet and exercise. Intrinsic asthma 0155828 08 J45.909 AsthmaUnde r control.Co ntinue on albuterol inhaler as needed. Rheumatoid arthritis 698 93437 M06.9 improved in remission on meds Rheumatoid arthritisS ymptoms have improved.C ontinue on current medication regimen. This note has been generated by Ning SINDHU and edited by Maurizio Dhillon Quality Documentat ion Specialist . Uterine leiomyoma 820316 05 D25.9 Active or passive immunization 785914682 Z23 [id number] Ria Keith MD , [facility], [address] [place] [address] 02/07/2022 15:35:23 02/07/2022 16:49:34 Rheumatoid arthritis 00254857 M06.9 improved in remission on meds Rheumatoid arthritisS ymptoms have improved.C ontinue on current medication regimen. This note has been generated by KavitaBunndle SINDHU and edited by Maurizio Dhillon Quality Documentat ion Specialist . Intrinsic asthma 2033923 08 J45.909 AsthmaUnde r control.Co ntinue on albuterol inhaler as needed. Mixed hyperlipidemia 267 467736 E78.2 Cholestero l is at goal Continue to work on diet and exercise as discussed Hyperlipid emiaCholes terol level was slightly elevated in 06/2021.Con tinue to work on diet and exercise. [id number] Ria Keith MD , [facility], [address] [place] [address] 06/22/2022 11:45:45 06/22/2022 14:55:52 Adult health examination 008306049 Z00.00 see Risk Assessment and Lifestyle Change Counseling section above Depression screening 171 027139 Z13.31 depression screening tool administer ed Screening for alcohol abuse 841790433 Z13.39 Alcohol use screening tool administer ed Mixed hyperlipidemia 267 673715 E78.2 Cholestero l is at goal Continue to work on diet and exercise as discussed Hyperlipid emiaCholes terol level was slightly elevated in 06/2021.Con angelikaue to work on diet and exercise. Explained in detail regarding the etiology of high cholestero l and its associated risks and medication s to treat it as well as criteria to start statins. Set a goal to get her LDL below 130.Encour aged to work on eating healthy and staying healthy.En couraged to avoid fried foods, fatty foods, and red meat.Encou raged to monitor symptoms. Mild inter mittent asthma 171525026 J45.20 (symptoms or bronchodil ator use at most two days per week) Based on history, physical assessment , and ACT, the patient's asthma is in control. Will continue the present medication s and follow up in 6 months. The asthma action plan has been discussed. The patient verbalizes understand ing medication use.. The patient is in agreement with this plan. Active or passive immunization [id number] Z23 This note has been generated by Ning MANLEY and edited by Radhika Corrigan./R eviewed by Bernard Patiño. [id number] Ria Keith MD , [facility], [address] [place] [address] 12/16/2022 08:17:33 12/16/2022 10:19:14 Active or passive immunization 285318723 Z23 This note has been generated by Ning MANLEY and edited by Radhika Corrigan./R eviewed by Bernard Patiño. [id number] NADYA Frederick , [facility], [address] [place] [address] 12/28/2022 16:27:51 01/01/2023 09:15:12 Exacerbation of intermittent asthma 383723332 J45.21 Start Prednisone taper as written below, Continue w/ Albuterol MDI as directed & Flovent If no improvemen t in 2-3 d. [facility] [id number] Ria Keith MD , [facility], [address] [place] [address] 03/18/2023 16:24:42 03/29/2023 14:36:32 Pain of bilateral knee joints 9062683125 14978 M25.562 Assessment and plan: Bilateral knee painExplai madison in detail regarding the etiology of bilateral knee pain along with its associated risks and discussed treatment options.Co rtisone injection was administer ed today on the left knee.If her symptoms do not improve in 4 to 6 days, she will schedule an appointmen t for right knee injectionI f no benefits, encouraged to schedule an appointmen t with physical therapist. This note has been generated by Ning MANLEY and edited by Magnolia Kenny, Quality Documentat ion Specialist . Pain of ri ght knee joint [id number] 53745 M25.213 [id number] Ria Keith MD , [facility], [address] [place] [address] 03/29/2023 09:33:27 03/31/2023 20:30:38 Pain of right knee joint [id number] 05258 M25.561 s/p inkection discussed knee exercises and role of injection in future [id number] Soniya Rivera, PT Physical Therapy, [address] [address] 05/10/2023 10:28:18 05/13/2023 07:48:03 Pain of left knee joint 5855417040 80340 M25.562 Patient is a 57-year old female who presents to physical therapy with complaint of bilateral medial knee pain, L > R, which is improving. Physical examinatio n revealed mildly decreased hamstring length with pain at end range, mild pain during resisted knee flexion and hip extension, TTP and the pes anserinus, and hypertonic ity and TTP of the semitendin osus and gracilis bilaterall y. 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 Patient has mild-moder ate functional limitation in their ADLs and exercise capacity. Primary limitation s include: position changes, squatting, ascending or descending stairs, and walking for longer than 10 minutes. Skilled physical therapy is indicated to safely and progressiv priscilla address impairment s and functional limitation s as outlined below. Patient is a good candidate for physical therapy due to active lifestyle, previous success with physical therapy interventi on, a good support system, and motivation to actively participat e in their plan of care. Short Term GoalsIn 4 visits, patient will:1. Stand after sitting for 30 minutes without medial knee pain.2. Perform squat to 60 degrees of knee flexion without medial knee pain. Skilled Nursing Goals:In 8 visits, patient will:1. Demonstrat e symmetric pain free active, passive and resisted motions of the left and right LE.2. Ascend and descend a full flight of stairs without medial knee pain.3. Walk at a brisk pace for 1 mile without medial knee pain.4. Demonstrat e independen ce with comprehens memo HEP. Treatment Plan: Patient to return for 8 visits over 12 weeks. We expect significan t change in pain, impairment and function in this time frame. Treatment to Include: Continuing assessment , neuromuscu lar re-educati on, therapeuti c exercise, patient education, HEP (initiated ), manual therapy PRN, modalities PRN, taping PRN. Pain of ri ght knee joint [id number] 84974 M25.225 [id number] Soniya Rivera, PT Physical Therapy, [address] [address] 05/17/2023 11:57:04 05/20/2023 09:14:00 Pain of left knee joint 3895599502 99475 M25.562 Treatment Plan: Patient to return for 8 visits over 12 weeks. We expect significan t change in pain, impairment and function in this time frame. Treatment to Include: Continuing assessment , neuromuscu lar re-educati on, therapeuti c exercise, patient education, HEP (initiated ), manual therapy PRN, modalities PRN, taping PRN. Pain of ri ght knee joint 1025388367 95170 M25.177 [id number] Soniya Rivera, PT Physical Therapy, [address] [address] 05/24/2023 11:53:34 05/27/2023 07:53:05 Pain of left knee joint 1422635426 49666 M25.562 Treatment Plan: Patient to return for 8 visits over 12 weeks. We expect significan t change in pain, impairment and function in this time frame. Treatment to Include: Continuing assessment , neuromuscu lar re-educati on, therapeuti c exercise, patient education, HEP (initiated ), manual therapy PRN, modalities PRN, taping PRN. Pain of ri ght knee joint [id number] 06909 M25.206 [id number] Soniya Rivera PT Physical Therapy, [address] [address] 05/31/2023 11:49:24 06/03/2023 16:42:32 Pain of left knee joint 0139730376 37615 M25.562 Treatment Plan: Patient to return for 8 visits over 12 weeks. We expect significan t change in pain, impairment and function in this time frame. Treatment to Include: Continuing assessment , neuromuscu lar re-educati on, therapeuti c exercise, patient education, HEP (initiated ), manual therapy PRN, modalities PRN, taping PRN. Pain of ri ght knee joint 9377840698 47179 M25.435 [id number] Ria Keith MD , [facility], [address] [place] [address] 06/28/2023 09:53:35 06/29/2023 21:03:07 Adult health examination 279786702 Z00.00 see Risk Assessment and Lifestyle Change Counseling section above Depression screening 171 705496 Z13.31 depression screening tool administer ed Screening for alcohol abuse 731779770 Z13.39 Alcohol use screening tool administer ed [id number] Soniya Rivera PT Physical Therapy, [address] [address] 07/15/2023 13:01:06 07/16/2023 07:07:32 Pain of left knee joint 5814937232 42360 M25.562 Treatment Plan: Patient to return for 8 visits over 12 weeks. We expect significan t change in pain, impairment and function in this time frame. Treatment to Include: Continuing assessment , neuromuscu lar re-educati on, therapeuti c exercise, patient education, HEP (initiated ), manual therapy PRN, modalities PRN, taping PRN. Pain of ri ght knee joint 1055367492 87716 M25.882 [id number] Soniya Rivera PT Physical Therapy, [address] [address] 07/22/2023 10:00:42 07/22/2023 10:52:43 Pain of left knee joint [id number] 44114 M25.562 Treatment Plan: Patient to return for 8 visits over 12 weeks. We expect significan t change in pain, impairment and function in this time frame. Treatment to Include: Continuing assessment , neuromuscu lar re-educati on, therapeuti c exercise, patient education, HEP (initiated ), manual therapy PRN, modalities PRN, taping PRN. Pain of ri ght knee joint [id number] 48183 M25.453 [id number] Soniya Rivera, PT Physical Therapy, [address] [address] 08/12/2023 14:41:18 08/12/2023 16:25:02 Pain of left knee joint 8867481602 19589 M25.562 Treatment Plan: Patient to return for 8 visits over 12 weeks. We expect significan t change in pain, impairment and function in this time frame. Treatment to Include: Continuing assessment , neuromuscu lar re-educati on, therapeuti c exercise, patient education, HEP (initiated ), manual therapy PRN, modalities PRN, taping PRN. Pain of ri ght knee joint 6596624609 36733 M25.340 [id number] Soniya Rivera, PT Physical Therapy, [address] [address] 08/23/2023 11:47:14 08/23/2023 18:04:26 Pain of left knee joint 0225553733 53265 M25.562 Treatment Plan: Patient to return for 8 visits over 12 weeks. We expect significan t change in pain, impairment and function in this time frame. Treatment to Include: Continuing assessment , neuromuscu lar re-educati on, therapeuti c exercise, patient education, HEP (initiated ), manual therapy PRN, modalities PRN, taping PRN. Pain of ri ght knee joint [id number] 23489 M25.561 [id number] Ria Keith MD , [facility], [address] [place] [address] 11/22/2023 11:57:33 11/25/2023 19:53:19 Asthma 852616174 J45.909 asthma much improved not need ign meds Intrinsic asthma 5992564 08 J45.909 AsthmaUnde r control.Co ntinue on albuterol inhaler as needed. Allergic a sthma without status asthmaticus 02663682 J45.909 see above [id number] Ria Keith MD , [facility], [address] [place] [address] 12/03/2023 13:29:05 12/05/2023 12:28:39 Upper respiratory infection 88769662 J06.9 Persistent URI sxs: cough, mild shortness of breath, fatigueImp roved w prednisone but not resolvedUs ing albuterol frequently No hypoxemia, tachycardi aNo fever in the office but took antipyreti c before coming inNo signs of pneumoniaN o acute distressAp pears well Rx benzonatat e for cough Intrinsic asthma 1833643 08 J45.909 URI exacerbati ng asthmaImpr migule w prednisone Lungs clear, no wheezing In the interest of sparing her from systemic steroids, she can take 2 puffs (200mcg) of her Arnuity Ellipta daily until she sees Dr Keith in one monthConti nue albuterol [id number] BRUCE HASSAN DO , [facility], [address] [place] [address] 12/19/2023 15:31:15 12/20/2023 12:05:02 Cough 50536556 R05.9 Prolonged CoughPersi stent cough for 5 weeks, worse at night, with associated chills and decreased appetite. No relief with 10 days of oral prednisone . Chest X-ray pending.-S tart Augmentin twice daily for 7 days with food.-Orde r CBC and blood cultures to rule out systemic infection. -Review pending chest X-ray results. AsthmaExac erbation suspected by primary care provider, treated with prednisone without relief. Increase in Arnuity inhaler dosage by another provider.- Continue current inhaler regimen. Rheumatoid arthritis 698 59959 M06.9 Rheumatoid ArthritisL serge-term use of Methotrexa te, potential for lung toxicity but being monitored by her rheumatolo gist.-Concetta tor for Methotrexa te lung toxicity, consider discussing with rheumatolo gist. [id number] Ria Keith MD , [facility], [address] [place] [address] 01/03/2024 10:45:25 01/07/2024 14:00:26 Hyperlipidemia 60055480 E78.5 will get tests to evaluate cardi risk Anemia 832094513 D64.9 Rheumatoid arthritis 698 94690 M06.9 improved in remission on meds Rheumatoid arthritisS ymptoms have improved.C ontinue on current medication regimen. This note has been generated by Ning MANLEY and edited by Maurizio Dhillon, Quality Documentat ion Specialist . [id number] Niki Jaquez MD , [facility], [address] [place] [address] 04/20/2024 09:17:58 04/20/2024 10:17:33 Dysuria 35639984 R30.0 See under urinary frequency. Abnormal u terine bleeding 2623235386 9100 N93.9 Spotting every six to seven weeks for 1 day only. Denies vaginal or urinary symptoms. Discussed with patient ordering a pelvic ultrasound and following up with LICENSING REPRESENTATIVE.- Order pelvic ultrasound for further evaluation .- Referral to LICENSING REPRESENTATIVE. Increased frequency of urination 904962824 R35.0 Increased frequency with incomplete bladder emptying. Denies burning, urgency, or flank pain. Normal POC urine. Differenti al includes overactive bladder, postmenopa usal changes, fibroids.- Send urine for culture.- Pelvic ultrasound ordered.- Follow up in 1 month.- RTO with new or worsening symptoms. [id number] Ria Keith MD , [facility], [address] [place] [address] 08/19/2024 11:15:27 08/21/2024 09:46:00 Adult health examination 083264796 Z00.00 see Risk Assessment and Lifestyle Change Counseling section above - Diagnosis: Encounter for general adult medical examinatio n - Assessment : Comprehens memo preventive visit performed; physical exam normal; age-approp riate screening and immunizati ons reviewed. - Plan: Schedule screening mammogram October 2024, colonoscop y 2025, Pap smear next due 2025, annual eye exam. Encourage COVID-19 booster now and influenza vaccine each fall; tetanus valid to 2032; shingles and pneumococc al series complete. - Ordered diagnostic tests: None beyond those listed above. - Lifestyle measures: Continue regular exercise, heart-heal thy diet, and salt restrictio n. - Referrals: Ophthalmol kellie for routine eye examinatio n. - Follow up: Wellness visit in 12 months; interim medical management visit in six months. Depression screening 171 433316 Z13.31 depression screening tool administer ed Screening for alcohol abuse 355759928 Z13.39 Alcohol use screening tool administer ed Cobalamin deficiency 190 305212 E53.8 Hyperlipid emia screening 278357951 Z13.220 Rheumatoid arthritis of multiple joints 743207699 M05.79 improved in remission on meds Rheumatoid arthritisS ymptoms have improved.C ontinue on current medication regimen. This note has been generated by Ning MANLEY and edited by Maurizio Dhillon, Quality Documentat ion Specialist . Anemia 785950117 D64.9 - Diagnosis: Anemia, unspecifie d - Assessment : Previously mild anemia likely related to methotrexa te; monitoring ongoing. - Plan: Repeat CBC with upcoming lab draw to reassess. - Ordered diagnostic tests: CBC included with rheumatolo gy panel. - Lifestyle measures: Balanced diet rich in iron; discussed. - Follow up: Review CBC results when available. Hyperlipidemia 15131836 E78.5 - Diagnosis: Hyperlipid emia, unspecifie d - Assessment : History of elevated LDL; patient continues aggressive lifestyle measures; will reassess risk after repeat fasting lipids. - Plan: Discussed risk of atheroscle rotic disease; benefits and risks of statin therapy reviewed should LDL remain elevated. - Ordered diagnostic tests: Fasting lipid panel with upcoming labs. - Lifestyle measures: Continue low-satura rohan-fat diet and high-level aerobic exercise. - Follow up: Review results with patient once available. Rheumatoid arthritis 698 02760 M06.9 - Diagnosis: Rheumatoid arthritis, unspecifie d - Assessment : Rheumatoid arthritis remains clinically quiescent on methotrexa te with no joint pain or swelling reported; monitoring required due to immunosupp ressive therapy. - Plan: Reviewed continuati on of methotrexa te; benefits of disease control outweigh risks. - Ordered diagnostic tests: CBC, CRP, comprehens memo metabolic panel to monitor for methotrexa te toxicity. - Medication s supplement s: Methotrexa te current dose unchanged; continue vitamin D and calcium. - Lifestyle measures: Maintain daily exercise to support joint health. - Referrals: Follow-up with rheumatolo gy end of August 2024. - Follow up: Primary care six months; sooner if joint symptoms flare. Mild persi stent asthma 724077985 J45.30 - Diagnosis: Asthma, mild persistent - Assessment : Asthma controlled on inhaled corticoste roid; no recent exacerbati ons. - Plan: Continue Arnuity Ellipta; review inhaler technique annually. - Medication s supplement s: Arnuity Ellipta 200 micrograms inhaled once daily. - Lifestyle measures: Avoid respirator y irritants; maintain vaccinatio ns. - Follow up: Reevaluate asthma control at next visit or sooner if symptoms arise. Health Concerns Section Related Observation LastModified by Organization Detai ls LastModified Time None Recorded Concern Status LastModified by Organization Details LastModified Time None Recorded Advance Directives Directive Y: Payers Insurance Date Sequence Insurance Name Policy Number Policy Manzanares Covered Member ID Manzanares Member ID Guarantor Name 06/20/2021 1 [employer] (HMO) [id number] [employer] [id number] [facility] [employer] Robi 06/20/2021 1 [facility] XinOwlin Robi [id number] Xinh Robi 09/22/[address] [facility] [id number] [employer] Robi [id number] [facility] Robi Notes Date Note Type Note Provider Name and Address Organization Details Recorded Time 4 text/html URIReported by PatientROS as noted in the HPI URI ongoing x 3 weeks Fatigued, cough, [...] previously well controlledWas taking honey cough syrup BRUCE HASSAN, DO [address] [place] [address], [place], [phone], [facility] 12/04/2023 10:20:39 4 text/html ROS as noted in the HPI 12/19/23- Pt here today for a same dy visitComplains of [...] rheumatoid arthritis, which is monitored by a chili pepper grinder. The patient reports that they have been [...] to sleep well due to the coughing. BRUCE HASSAN DO [address] [place] [address], [phone], [facility] 12/20/2023 09:30:53 4 text/html The patient is a 58-year-old female who presents for a routine follow-up.She consulted Dr. Hilton a few weeks ago due to a fever and cough, which have since improved. She completed a course of Augmentin and is currently using Arnuity Ellipta for her lungs. She has not yet used albuterol.She is also taking methotrexate, prescribed by her chili pepper grinder, which is effectively managing her arthritis. She [...] but continues to exercise at home. Ria Ketih MD [address] [place] [address], [phone], [facility] 01/03/2024 15:48:22 5 text/html Urinary FrequencyReported by PatientHPIFor symptoms, patient reportssymptoms began __ days ago (4 months ago),urinary frequency, andback painbut reportsno burning,no fever,no chills,no nausea,no vomiting, andno vaginal symtpoms.ROS as noted in the HPI The patient, with a history of fibroids, presents with urinary frequency and a sensation of incomplete bladder emptying for 3-4 months. She reports a sensation of pressure in the lower abdomen, particularly on the left side, but denies any pain. The patient also reports intermittent spotting every six to seven weeks for the past couple of years. The spotting is described as minimal, mostly noticed when wiping, and lasts for a day. The patient denies any associated pain or discomfort. The patient has not had a menstrual period for approximately six to seven years. Luanne Lozada NP [address] [place] [address], [phone], [facility] 04/20/2024 14:24:13 5 text/html [facility] AsthmaReported by PatientHPIFor severity/intensity/frequ ency of symptoms, patient reportsintermittent asthma with symptoms less than 2 days per week(hasn't used rescue inhaler since 2021.). For compliance, (06/22/22 hasn't been using either asthma med - hasn't needed.). Risk Assessment and Lifestyle Change Counseling 50-64Reported by PatientRisk AssessmenFor coronary artery disease risk assessment, patient reportsno family history of coronary artery disease,no personal history of diabetes,no history of peripheral vascular disease, aaa, or carotid disease, andno personal history of coronary artery disease. For breast cancer risk assessment, patient reportsno family history of breast cancer. For colon cancer risk assessment, patient reportsno family history of colon polyps or cancer. For lung cancer risk assessment, patient reportsnever smoked. For fracture risk assessment, patient reportsno unexplained fracture. For cognitive/behavioral risk assessment, patient reportsno personal history of mental illness. For safety risk assessment, patient reportsno evidence of abuse/neglect,do you feel safe in your current relationship?yes,have you ever been a victim of physicial/emotional/sexu al abuse?no, andconcerns for alcohol or drug abuse?no.Diet CounselingFor diet, patient reportscounseled about eating a diet low in trans and saturated fats and high in fiber, fruits and vegetables.Safety Counseling:For safety, patient reportscounseled about protecting skin from the sun and lowering the risk of skin cancer,counseled about avoiding excessive and unsafe alcohol intake,counseled about use of helmets for high velocity activiities, andcounseled about use of seat belts.Family PlanningForfamily planning:, patient reportsnot using control. PHA 08/19/24 Previous:History of present illness:Felisha Rosenbaum is a 57-year-old female who presents for a wellness visit.Her medical history includes some allergies for quite some time, asthma, cholesterol, rheumatoid arthritis. She has no major heart or lung problems.The patient has not been utilizing her asthma medications so much, Flovent and albuterol, as her condition has improved and does not want to use them. She is on methotrexate, taking 3 tablets weekly for her rheumatoid arthritis and is seeing a chili pepper grinder, Dr. Ford. The medication has been effective in managing her symptoms. She is not on any prednisone currently.A mammogram was conducted last summer and encouraged to repeat in 2024. Pap smear was conducted in 2020, with a recommendation for a repeat in 2025. Her colon cancer screening conducted in 2015, was normal, and a repeat is due in 2025.She maintains an active lifestyle, engaging in daily exercise four days a week. She is sleeping well and reports normal bowel movements and urination. Her vision and hearing are satisfactory. She has an upcoming appointment with her nail specialist, with her last examination revealing 20/20 vision. The nail specialist has informed her of the onset of cataract in one eye, a condition that warrants further investigation.She is a nonsmoker.She denies a family history of breast cancer. When asked about family history of cardiac related issues, she said she is not aware of her paternal side, but her mother has high blood pressure.She is up-to-date on her tetanus, influenza, pneumonia, shingles vaccines. She does not think she received COVID-19 booster in this past fall. Results:She had labs done in 02/2023 as well as labs from her chili pepper grinder were within normal limits. Her blood glucose, kidney tests, and liver tests were all normal. LDL cholesterol was elevated 192 mg/dL. 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 Pt also would like to talk about dizziness, episode of nausea and vomiting Felisha Rosenbaum is a 56-year-old female who presents today for a wellness visit.The patient has a diagnosis of rheumatoid arthritis. She follows up with a chili pepper grinder every 4 months instead of every 3 months since she is doing well.Her blood pressure is normal. She is feeling good. She denies dizziness or lightheadedness.She had an eye exam on 06/15/2022, which showed she had a normal visual acuity of 20/20, but the nail specialist told her that she has mild cataract and will be rechecked in 2023.She is up-to-date on COVID-19, tetanus, influenza, pneumonia, and shingles vaccines.Blood work done in 04/2022 revealed her blood glucose, kidney function test, potassium, liver function test, and blood count were unremarkable. Her LDL cholesterol from 2021 was elevated at 179 mg/dL.She is not a smoker.She suspects that her elevated cholesterol level might be related to genetics because she does not eat fried food or meat and she tries to eat healthy, which is a concerning factor for her. She inquired about medications for treating it and the dosage as well as side effects.She had a mammogram in 05/2021 and she is interested in undergoing another one by the end of this year. She never had an abnormal biopsy as well.She had a Pap smear in 2020.She had a colon cancer screening in 2015, which was normal.Family history:She denies any family history of breast cancer.Current medications:She is taking methotrexate, folic acid, and vitamins. She has Flovent, but she does not use it since her breathing is good, and she does not need to use the albuterol frequently. Labs from 04/2022 reviewed.Blood sugar, kidney, potassium, and liver tests were all normal.Blood count was normal.Her last cholesterol test from 2021, which showed elevated LDL at 179 mg/dL. Chief complaint: Annual wellness visit 08/20/2024 History of present illness hpi: Female presenting for routine annual wellness examination. Annual wellness visit Patient reports generally feeling well and is here for a routine annual exam. - Takes methotrexate weekly for rheumatoid arthritis and feels it continues to control joint symptoms - Uses Arnuity Ellipta daily for asthma with good control and no recent need for rescue albuterol - Supplements include vitamin D and calcium - Exercises two to two and a half hours daily and follows a diet rich in fruits, vegetables, and whole foods while limiting salt and saturated fat - Endometrial procedure performed May 2024 without complications - Dual-energy X-ray absorptiometry completed 03 August 2024; results pending transfer from chili pepper grinder - Plans laboratory work (CBC, CRP, comprehensive metabolic panel, vitamin B-12, fasting lipid panel, glucose) before upcoming rheumatology visit later this month - Advised to obtain COVID-19 booster every six months due to immunosuppression from methotrexate; now due - Mammogram last performed October 2023; will schedule repeat October 2024 - Colonoscopy last performed 2015; understands repeat recommended in 2025 - Pap smear completed 2020 with gynecology; up to date - Reports last eye examination approximately one to two years ago; will schedule annual evaluation Rheumatoid arthritis management Symptoms remain in remission on current methotrexate regimen. - Follows with rheumatology every six months; new chili pepper grinder appointment anticipated end of August 2024 - Prefers laboratory work performed locally prior to rheumatology visit - Aware of need for routine blood monitoring related to methotrexate therapy Asthma maintenance Asthma well controlled on daily Arnuity Ellipta inhaler. - No recent wheeze, cough, or shortness of breath - No recent albuterol use Hyperlipidemia history Previously elevated LDL around 190 mg per dL; lifestyle modifications ongoing. - Last lipid profile February 2024; plans repeat fasting lipids with upcoming labs - Continues high-intensity exercise and dietary measures to avoid statin therapy if possible Screening history: - Mammogram: October 2023 (normal); next due October 2024 - Pap smear: 2020 (normal) - Colonoscopy: 2015; next due 2025 - Bone density: 03 August 2024 (results pending) - Eye examination: last 1-2 years; plans annual exam Ria Keith MD [address] [place] [address], [phone], [facility] 08/20/2024 17:22:01 OBGyn Episode Ob Episode Information Episode Created Date Number of Fetuses Patient Bloodtype Patient rh Status Prepregnancy Weight lbs Domestic Partner Domestic Partner Phone Father Name External Relations Manager Status 02/24/20 00 CLOSED Fetus Data First Name Last Name Admitted to NICU Weight (g) Sex Living Outcome Pediatric Complications Fetus ID Race Codes Race Delivery Type 7 Problems Problem Notes Problem Name Start Date End Date Resolution Snomed Code Not e Tenosynovitis of fingers 30921 6003 Knee pain 08216751 Anterior knee pain 587777634 Metatarsalgia 46004438 Pronation of foot 72173049 Rheumatoid arthritis 70000465 Mixed hyperlipidemia 12/23/2008 [id number] 3 Exercise-induced asthma 179398 02 Intrinsic asthma [id number] Asthma 873529686 Allergic asthma without stat us asthmaticus 01/21/2003 [id number] Osiel Calculation Initial Osiel Date Initial Exam Date Initial Exam Provider Initial Ultrasound Date Last Menstrual Period Date Ultra Sound Weeks Gestation 02/24/2000 0 Eighteen To Twenty Week Osiel Update [...] Type Weight in lbs Pre/Post Dialysis Refused 132.711171874828 BP Diastolic BP Location Tested BP Systolic BP Type 54 R arm 116 sitting Fetus Heart Rate Present Fetus Movement Comments Flowsheet Date 06/02/2008 Brizuela Score Blood Edema Fundus Height Fundus Units Glucose Ketones Leukocytes Nitrite Labor Signs Protein Cervic Dilation Cervic Effacement Cervic Station Type Weight in lbs Pre/Post Dialysis Refused 126.41496620863 BP Diastolic BP Location Tested BP Systolic [...] Type Weight in lbs Pre/Post Dialysis Refused 134.760353462194 BP Diastolic BP Location Tested BP Systolic [...] Type Weight in lbs Pre/Post Dialysis Refused 136.417637915353 BP Diastolic BP Location Tested BP Systolic BP Type 74 L arm 118 sitting Fetus Heart Rate Present Fetus Movement Comments Flowsheet Date 10/12/2009 Brizuela Score Blood Edema Fundus Height Fundus Units Glucose Ketones Leukocytes Nitrite Labor Signs Protein Cervic Dilation Cervic Effacement Cervic Station Type Weight in lbs Pre/Post Dialysis Refused 135.313335414170 BP Diastolic BP Location Tested BP Systolic [...] Type Weight in lbs Pre/Post Dialysis Refused 139.992974270565 BP Diastolic BP Location Tested BP Systolic BP Type 72 L arm 98 sitting Fetus Heart Rate Present Fetus Movement Comments Flowsheet Date 11/25/2009 Brizuela Score Blood Edema Fundus Height Fundus Units Glucose Ketones Leukocytes Nitrite Labor Signs Protein Cervic Dilation Cervic Effacement Cervic Station Type Weight in lbs Pre/Post Dialysis Refused 140.933480275486 BP Diastolic BP Location Tested BP Systolic [...] Type Weight in lbs Pre/Post Dialysis Refused 138.179358206975 BP Diastolic BP Location Tested BP Systolic BP Type 78 R arm 104 sitting Fetus Heart Rate Present Fetus Movement Comments Flowsheet Date 03/27/2010 Brizuela Score Blood Edema Fundus Height Fundus Units Glucose Ketones Leukocytes Nitrite Labor Signs Protein Cervic Dilation Cervic Effacement Cervic Station Type Weight in lbs Pre/Post Dialysis Refused 142.139154913617 BP Diastolic BP Location Tested BP Systolic [...] Type Weight in lbs Pre/Post Dialysis Refused 139.334524991973 BP Diastolic BP Location Tested BP Systolic BP Type 68 L arm 112 sitting Fetus Heart Rate Present Fetus Movement Comments Flowsheet Date 08/15/2010 Brizuela Score Blood Edema Fundus Height Fundus Units Glucose Ketones Leukocytes Nitrite Labor Signs Protein Cervic Dilation Cervic Effacement Cervic Station Type Weight in lbs Pre/Post Dialysis Refused 137.155221405093 BP Diastolic BP Location Tested BP Systolic BP Type 68 R arm 108 sitting Fetus Heart Rate Present Fetus Movement Comments Flowsheet Date 08/28/2010 Brizuela Score Blood Edema Fundus Height Fundus Units Glucose Ketones Leukocytes Nitrite Labor Signs Protein Cervic Dilation Cervic Effacement Cervic Station Type Weight in lbs Pre/Post Dialysis Refused 133.670655175642 BP Diastolic BP Location Tested BP Systolic [...] Type Weight in lbs Pre/Post Dialysis Refused 133.514474179656 BP Diastolic BP Location Tested BP Systolic BP Type 68 L arm 114 sitting Fetus Heart Rate Present Fetus Movement Comments Flowsheet Date 10/22/2011 Brizuela Score Blood Edema Fundus Height Fundus Units Glucose Ketones Leukocytes Nitrite Labor Signs Protein Cervic Dilation Cervic Effacement Cervic Station Type Weight in lbs Pre/Post Dialysis Refused 134.798148824513 BP Diastolic BP Location Tested BP Systolic [...] Type Weight in lbs Pre/Post Dialysis Refused 131.315111788862 BP Diastolic BP Location Tested BP Systolic [...] Type Weight in lbs Pre/Post Dialysis Refused 128.259718489171 BP Diastolic BP Location Tested BP Systolic BP Type 76 L arm 102 sitting Fetus Heart Rate Present Fetus Movement Comments Flowsheet Date 05/26/2013 Brizuela Score Blood Edema Fundus Height Fundus Units Glucose Ketones Leukocytes Nitrite Labor Signs Protein Cervic Dilation Cervic Effacement Cervic Station Type Weight in lbs Pre/Post Dialysis Refused 129.076508357105 BP Diastolic BP Location Tested BP Systolic BP Type 72 L arm 110 sitting Fetus Heart Rate Present Fetus Movement Comments Flowsheet Date 02/04/2015 Brizuela Score Blood Edema Fundus Height Fundus Units Glucose Ketones Leukocytes Nitrite Labor Signs Protein Cervic Dilation Cervic Effacement Cervic Station Type Weight in lbs Pre/Post Dialysis Refused 140.9319219170 BP Diastolic BP Location Tested BP Systolic [...] Type Weight in lbs Pre/Post Dialysis Refused 140.8538114169 BP Diastolic BP Location Tested BP Systolic [...] Type Weight in lbs Pre/Post Dialysis Refused 139.978078580933 BP Diastolic BP Location Tested BP Systolic [...] Type Weight in lbs Pre/Post Dialysis Refused 140.604411904685 BP Diastolic BP Location Tested BP Systolic BP Type 66 R arm 112 sitting Fetus Heart Rate Present Fetus Movement Comments Flowsheet Date 05/12/2015 Brizuela Score Blood Edema Fundus Height Fundus Units Glucose Ketones Leukocytes Nitrite Labor Signs Protein Cervic Dilation Cervic Effacement Cervic Station Type Weight in lbs Pre/Post Dialysis Refused 140.709546901026 BP Diastolic BP Location Tested BP Systolic [...] Type Weight in lbs Pre/Post Dialysis Refused 140.403415763168 BP Diastolic BP Location Tested BP Systolic BP Type 62 L arm 102 sitting Fetus Heart Rate Present Fetus Movement Comments Flowsheet Date 06/17/2015 Brizuela Score Blood Edema Fundus Height Fundus Units Glucose Ketones Leukocytes Nitrite Labor Signs Protein Cervic Dilation Cervic Effacement Cervic Station Type Weight in lbs Pre/Post Dialysis Refused 139.578914437979 BP Diastolic BP Location Tested BP Systolic BP Type 70 L arm 116 sitting Fetus Heart Rate Present Fetus Movement Comments Flowsheet Date 06/30/2015 Brizuela Score Blood Edema Fundus Height Fundus Units Glucose Ketones Leukocytes Nitrite Labor Signs Protein Cervic Dilation Cervic Effacement Cervic Station Type Weight in lbs Pre/Post Dialysis Refused 141.236095037159 BP Diastolic BP Location Tested BP Systolic [...] Type Weight in lbs Pre/Post Dialysis Refused 141.486769008043 BP Diastolic BP Location Tested BP Systolic [...] Type Weight in lbs Pre/Post Dialysis Refused 140.78610378086 BP Diastolic BP Location Tested BP Systolic [...] Type Weight in lbs Pre/Post Dialysis Refused 141.306845991452 BP Diastolic BP Location Tested BP Systolic BP Type 66 L arm 116 sitting Fetus Heart Rate Present Fetus Movement Comments Flowsheet Date 11/28/2015 Brizuela Score Blood Edema Fundus Height Fundus Units Glucose Ketones Leukocytes Nitrite Labor Signs Protein Cervic Dilation Cervic Effacement Cervic Station Type Weight in lbs Pre/Post Dialysis Refused 141.196733039674 BP Diastolic BP Location Tested BP Systolic BP Type 64 L arm 118 sitting Fetus Heart Rate Present Fetus Movement Comments Flowsheet Date 02/13/2016 Brizuela Score Blood Edema Fundus Height Fundus Units Glucose Ketones Leukocytes Nitrite Labor Signs Protein Cervic Dilation Cervic Effacement Cervic Station Type Weight in lbs Pre/Post Dialysis Refused 141.599049517902 BP Diastolic BP Location Tested BP Systolic BP Type 68 L arm 104 sitting Fetus Heart Rate Present Fetus Movement Comments Flowsheet Date 02/28/2016 Brizuela Score Blood Edema Fundus Height Fundus Units Glucose Ketones Leukocytes Nitrite Labor Signs Protein Cervic Dilation Cervic Effacement Cervic Station Type Weight in lbs Pre/Post Dialysis Refused 137.704308013431 BP Diastolic BP Location Tested BP Systolic BP Type 70 L arm 124 sitting Fetus Heart Rate Present Fetus Movement Comments Flowsheet Date 05/25/2016 Brizuela Score Blood Edema Fundus Height Fundus Units Glucose Ketones Leukocytes Nitrite Labor Signs Protein Cervic Dilation Cervic Effacement Cervic Station Type Weight in lbs Pre/Post Dialysis Refused 139.692879078208 BP Diastolic BP Location Tested BP Systolic BP Type 64 R arm 116 sitting Fetus Heart Rate Present Fetus Movement Comments Flowsheet Date 08/24/2016 Brizuela Score Blood Edema Fundus Height Fundus Units Glucose Ketones Leukocytes Nitrite Labor Signs Protein Cervic Dilation Cervic Effacement Cervic Station Type Weight in lbs Pre/Post Dialysis Refused 135.118151784001 BP Diastolic BP Location Tested BP Systolic BP Type 66 R arm 122 sitting Fetus Heart Rate Present Fetus Movement Comments Flowsheet Date 09/20/2016 Brizuela Score Blood Edema Fundus Height Fundus Units Glucose Ketones Leukocytes Nitrite Labor Signs Protein Cervic Dilation Cervic Effacement Cervic Station Type Weight in lbs Pre/Post Dialysis Refused 134.90371499139 BP Diastolic BP Location Tested BP Systolic BP Type 60 L arm 112 sitting Fetus Heart Rate Present Fetus Movement Comments Flowsheet Date 11/16/2016 Brizuela Score Blood Edema Fundus Height Fundus Units Glucose Ketones Leukocytes Nitrite Labor Signs Protein Cervic Dilation Cervic Effacement Cervic Station Type Weight in lbs Pre/Post Dialysis Refused 140.831516364282 BP Diastolic BP Location Tested BP Systolic BP Type 68 L arm 114 sitting Fetus Heart Rate Present Fetus Movement Comments Flowsheet Date 03/15/2017 Brizuela Score Blood Edema Fundus Height Fundus Units Glucose Ketones Leukocytes Nitrite Labor Signs Protein Cervic Dilation Cervic Effacement Cervic Station Type Weight in lbs Pre/Post Dialysis Refused 142.935371335912 BP Diastolic BP Location Tested BP Systolic BP Type 68 104 Fetus Heart Rate Present Fetus Movement Comments Flowsheet Date 06/27/2017 Brizuela Score Blood Edema Fundus Height Fundus Units Glucose Ketones Leukocytes Nitrite Labor Signs Protein Cervic Dilation Cervic Effacement Cervic Station Type Weight in lbs Pre/Post Dialysis Refused 136.884500209665 BP Diastolic BP Location Tested BP Systolic BP Type 80 L arm 120 sitting Fetus Heart Rate Present Fetus Movement Comments Flowsheet Date 07/31/2017 Brizuela Score Blood Edema Fundus Height Fundus Units Glucose Ketones Leukocytes Nitrite Labor Signs Protein Cervic Dilation Cervic Effacement Cervic Station Type Weight in lbs Pre/Post Dialysis Refused 138.298161036049 BP Diastolic BP Location Tested BP Systolic BP Type 62 R arm 104 sitting Fetus Heart Rate Present Fetus Movement Comments Flowsheet Date 08/13/2017 Brizuela Score Blood Edema Fundus Height Fundus Units Glucose Ketones Leukocytes Nitrite Labor Signs Protein Cervic Dilation Cervic Effacement Cervic Station Type Weight in lbs Pre/Post Dialysis Refused 136.510708852910 BP Diastolic BP Location Tested BP Systolic [...] Type Weight in lbs Pre/Post Dialysis Refused 136.515167356816 BP Diastolic BP Location Tested BP Systolic [...] Type Weight in lbs Pre/Post Dialysis Refused 139.10079379501 BP Diastolic BP Location Tested BP Systolic BP Type 71 R arm 112 sitting Fetus Heart Rate Present Fetus Movement Comments Flowsheet Date 03/14/2018 Brizuela Score Blood Edema Fundus Height Fundus Units Glucose Ketones Leukocytes Nitrite Labor Signs Protein Cervic Dilation Cervic Effacement Cervic Station Type Weight in lbs Pre/Post Dialysis Refused Weight 142.974973615454 BP Diastolic BP Location Tested BP Systolic BP Type 68 L arm 100 sitting Fetus Heart Rate Present Fetus Movement Comments Flowsheet Date 06/30/2018 Brizuela Score Blood Edema Fundus Height Fundus Units Glucose Ketones Leukocytes Nitrite Labor Signs Protein Cervic Dilation Cervic Effacement Cervic Station Type Weight in lbs Pre/Post Dialysis Refused Weight 139.605955775639 BP Diastolic BP Location Tested BP Systolic [...] Weight in lbs Pre/Post Dialysis Refused Weight 140.406440208286 BP Diastolic BP Location Tested BP Systolic [...] Weight in lbs Pre/Post Dialysis Refused Weight 137.387323076116 BP Diastolic BP Location Tested BP Systolic [...] Weight in lbs Pre/Post Dialysis Refused Stated 140.667699618115 BP Diastolic BP Location Tested BP Systolic [...] in lbs Pre/Post Dialysis Refused With clothes 140.953024534344 BP Diastolic BP Location Tested BP Systolic [...] Weight in lbs Pre/Post Dialysis Refused Weight 139.427976708016 BP Diastolic BP Location Tested BP Systolic BP Type 72 L arm 110 sitting Fetus Heart Rate Present Fetus Movement Comments Flowsheet Date 12/07/2020 Brizuela Score Blood Edema Fundus Height Fundus Units Glucose Ketones Leukocytes Nitrite Labor Signs Protein Cervic Dilation Cervic Effacement Cervic Station Type Weight in lbs Pre/Post Dialysis Refused With clothes 139.603779255041 BP Diastolic BP Location Tested BP Systolic [...] Weight in lbs Pre/Post Dialysis Refused Weight 140.373583225514 BP Diastolic BP Location Tested BP Systolic BP Type 58 102 Fetus Heart Rate Present Fetus Movement Comments Flowsheet Date 07/20/2021 Brizuela Score Blood Edema Fundus Height Fundus Units Glucose Ketones Leukocytes Nitrite Labor Signs Protein Cervic Dilation Cervic Effacement Cervic Station Type Weight in lbs Pre/Post Dialysis Refused With clothes 141.990282014993 BP Diastolic BP Location Tested BP Systolic [...] Weight in lbs Pre/Post Dialysis Refused Weight 137.214139299143 BP Diastolic BP Location Tested BP Systolic BP Type 60 R arm 102 sitting Fetus Heart Rate Present Fetus Movement Comments Flowsheet Date 02/07/2022 Brizuela Score Blood Edema Fundus Height Fundus Units Glucose Ketones Leukocytes Nitrite Labor Signs Protein Cervic Dilation Cervic Effacement Cervic Station Type Weight in lbs Pre/Post Dialysis Refused Weight 140.000648308716 BP Diastolic BP Location Tested BP Systolic BP Type 62 L arm 100 sitting Fetus Heart Rate Present Fetus Movement Comments Flowsheet Date 06/22/2022 Brizuela Score Blood Edema Fundus Height Fundus Units Glucose Ketones Leukocytes Nitrite Labor Signs Protein Cervic Dilation Cervic Effacement Cervic Station Type Weight in lbs Pre/Post Dialysis Refused With clothes 136.966257369618 BP Diastolic BP Location Tested BP Systolic [...] in lbs Pre/Post Dialysis Refused With clothes 139.141609812215 BP Diastolic BP Location Tested BP Systolic BP Type 60 R arm 90 sitting Fetus Heart Rate Present Fetus Movement Comments Flowsheet Date 03/18/2023 Brizuela Score Blood Edema Fundus Height Fundus Units Glucose Ketones Leukocytes Nitrite Labor Signs Protein Cervic Dilation Cervic Effacement Cervic Station Type Weight in lbs Pre/Post Dialysis Refused With clothes 139.844882150001 BP Diastolic BP Location Tested BP Systolic BP Type 62 R arm 92 sitting Fetus Heart Rate Present Fetus Movement Comments Flowsheet Date 03/29/2023 Brizuela Score Blood Edema Fundus Height Fundus Units Glucose Ketones Leukocytes Nitrite Labor Signs Protein Cervic Dilation Cervic Effacement Cervic Station Type Weight in lbs Pre/Post Dialysis Refused With clothes 139.482720864795 BP Diastolic BP Location Tested BP Systolic [...] in lbs Pre/Post Dialysis Refused With clothes 138.960829157240 BP Diastolic BP Location Tested BP Systolic [...] in lbs Pre/Post Dialysis Refused With clothes 138.451868340454 BP Diastolic BP Location Tested BP Systolic [...]
== END 2024-09-23 14:58 | disposition home or self-care (01) ==
LOC: HO.RHE 14:03
PROVIDERS: PCP Family Medicine; Visit Provider Student in an Organized Health Care Education/Training Program
DX: M06.9 Rheumatoid arthritis, unspecified (principal); M85.80 Other specified disorders of bone density and structure, unspecified site; Z79.631 Long term (current) use of antimetabolite agent
CPT/HCPCS: 99213